=== PATIENT | male | born 1945 ===

== ENCOUNTER 2018-08-06 10:49 | Inpatient (IN) | payer MEDICARE, OTHER ==
[2018-08-06 10:52] VITALS: BMI 23.3
--- NOTE | 2018-08-06 11:56 | ED PDOC ---
HPI: Altered Mental Status Time Seen by Provider: 08/06/18 10:56 Chief Complaint (Nursing): Weakness/Neurological Deficit Chief Complaint (Provider): AMS History Per: Patient Additional Complaint(s): Patient is a 73 yo male, no PMH according to Pt's nephews at bedside, brought from his apartment building by EMS for evaluation of weakness, weight loss and not eating. Pt's nephews report Pt lives alone; however, they are in the same building and check on him often. Nephews note that Pt has had a 30 lb weight loss in the last month, does not eat the food they have been making for him, and appears to be overall weak. Pt alert at this time, states his name but will not answer questions appropriately. unsure of place or time. denies any physical complaints. Past Medical History Reviewed: Nursing Documentation, Vital Signs Vital Signs: Last Vital Signs Temp 96.1 F L 08/06/18 10:52 Pulse 80 08/06/18 10:52 Resp 17 08/06/18 10:52 BP 95/66 L 08/06/18 10:52 Pulse Ox 99 08/06/18 10:52 - Medical History PMH: No Chronic Diseases - Surgical History Surgical History: No Surg Hx - Family History Family History: States: Unknown Family Hx - Living Arrangements Living Arrangements: Alone (family live in same building) - Social History Current smoker - smoking cessation education provided: No Alcohol: > 2 Drinks/Day Drugs: Denies - Home Medications Home Medications: Ambulatory Orders Medication Instructions Recorded No Known Home Med 08/06/18 - Allergies Allergies/Adverse Reactions: Allergies Allergy/AdvReac Type Severity Reaction Status Date / Time No Known Allergies Allergy Verified 08/06/18 11:02 Review of Systems ROS Statement: Except As Marked, All Systems Reviewed And Found Negative Neurological: Positive for: Weakness Physical Exam - Reviewed Nursing Documentation Reviewed: Yes Vital Signs Reviewed: Yes - Physical Exam Appears: Positive for: Well, Non-toxic, No Acute Distress Head Exam: Positive for: ATRAUMATIC, NORMAL INSPECTION, NORMOCEPHALIC Skin: Positive for: Normal Color, Warm, DRY Eye Exam: Positive for: EOMI, Normal appearance, PERRL ENT: Positive for: Normal ENT Inspection Neck: Positive for: Normal, Painless ROM Cardiovascular/Chest: Positive for: Regular Rate, Rhythm Respiratory: Positive for: CNT, Normal Breath Sounds Gastrointestinal/Abdominal: Positive for: Normal Exam, Soft Back: Positive for: Normal Inspection Extremity: Positive for: Normal ROM Neurologic/Psych: Positive for: Alert, Oriented - Laboratory Results Result Diagrams: 08/06/18 12:07 08/06/18 12:07 - ECG O2 Sat by Pulse Oximetry: 99 Medical Decision Making Medical Decision Making: IV access established and diagnostics ordered CT scan resulted: NAD, age related changes, as per radiologist CXR: NAd, as read by ELINOR EKG interpreted and cleared by ED MD BUN elevated 64 CR 2.0 Alochol < 10 IVF administered case discussed with ED MD, Dr. Godfrey, who agreed with admission at this time. Pt does not have a PMD according to nereida. Case discussed with Dr. Kamara, arrangements made for admission Disposition - Clinical Impression Clinical Impression: Weight loss, Weakness, Renal failure - Patient ED Disposition Is Patient to be Admitted: Yes - Disposition Disposition Time: 14:40 Condition: STABLE Instructions: Weakness (ED) Forms: [employer] (Lithuanian)
[2018-08-06 12:13] LABS: BASO # 0.1 K/uL (0.0-0.2); BASO % 1.3 % (0.0-2.0); EOS # 0.1 K/uL (0.0-0.7); EOS % 2.2 % (0.0-4.0); HEMOGLOBIN 16.7 g/dL (12.0-18.0); LYMPH % 15.4 % (20.0-40.0); MEAN CELL VOLUME 89.5 fl (80.0-94.0); MEAN CORPUSCULAR HEMOGLOBIN 29.5 pg (27.0-31.0); MEAN PLATELET VOLUME 11.8 fl (7.2-11.7); MONO # 0.6 K/uL (0.0-0.8); MONO % 9.7 % (0.0-10.0); NEUT # 4.7 K/uL (1.8-7.0); NEUT % 71.4 % (50.0-75.0); NRBC % 0.2 % (0.0-0.0); RBC 5.66 Mil/uL (4.40-5.90); RED CELL DISTRIBUTION WIDTH 13.4 % (11.5-14.5); WHITE BLOOD COUNT 6.6 K/uL (4.8-10.8)
[2018-08-06 12:31] LABS: ALB/GLOB RATIO 0.8 (1.0-2.1); ALBUMIN 3.4 g/dL (3.5-5.0); ALT/SGPT 32 U/L (21-72); AST/SGOT 86 U/L (17-59); BLOOD UREA NITROGEN 64 mg/dl (9-20); CALCIUM 9.7 mg/dL (8.4-10.2); GFR NON-AFRICAN AMERICAN 33
[2018-08-06 12:39] LABS: INR 1.1; PROTHROMBIN TIME 12.4 Seconds (9.8-13.1)
--- NOTE | 2018-08-06 13:03 | RAD ---
Date of service: 08/06/2018 PROCEDURE: CHEST RADIOGRAPH, 1 VIEW HISTORY: med screening COMPARISON: 06/03/2012. FINDINGS: LUNGS: Stable/chronic interstitial lung disease. PLEURA: No pneumothorax or pleural fluid seen. CARDIOVASCULAR: No radiographic findings to suggest acute or significant cardiovascular disease. OSSEOUS STRUCTURES: No significant abnormalities. VISUALIZED UPPER ABDOMEN: Normal. OTHER FINDINGS: None. IMPRESSION: No active disease. No acute/significant interval changes.
--- NOTE | 2018-08-06 13:05 | CT ---
Date of service: 08/06/2018 PROCEDURE: CT HEAD WITHOUT CONTRAST. HISTORY: AMS COMPARISON: None available. TECHNIQUE: Axial computed tomography images were obtained through the head/brain without intravenous contrast. Radiation dose: Total exam DLP = 778.86 mGy-cm. This CT exam was performed using one or more of the following dose reduction techniques: Automated exposure control, adjustment of the mA and/or kV according to patient size, and/or use of iterative reconstruction technique. FINDINGS: HEMORRHAGE: No intracranial hemorrhage. BRAIN: No mass effect or edema. Mild to moderate diffuse atrophy. Mild chronic periventricular white matter ischemic change. No evidence of acute infarct. VENTRICLES: Unremarkable. No hydrocephalus. CALVARIUM: Unremarkable. PARANASAL SINUSES: Unremarkable as visualized. No significant inflammatory changes. MASTOID AIR CELLS: Unremarkable as visualized. No inflammatory changes. OTHER FINDINGS: None. IMPRESSION: No intracranial mass, hemorrhage or evidence of acute infarct. Age related atrophy and chronic white matter ischemic change.
[2018-08-06] MEDS ORDERED: Sodium Chloride 0.9% 1,000 ML IV STA (14:30)
--- NOTE | 2018-08-06 20:12 | CP.PCM.HP ---
History of Present Illness - History of Present Illness History of Present Illness: CC: Weakness and Weight Loss History of Present Illness: A 73 yo male, no PMH according to Pt's nephews at bedside, brought from his apartment building by EMS for evaluation of weakness, weight loss and not eating. Pt's nephews report Patient lives alone; however, they are in the same building and check on him often. Nephews note that Pt has had a 30 lb weight loss in the last month, does not eat the food they have been making for him, and appears to be overall weak. Pt alert at this time, states his name but will not answer questions appropriately. unsure of place or time. denies any physical complaints. In the ER, patient was found to have ISAURO. Present on Admission - Present on Admission Any Indicators Present on Admission: No Review of Systems - Review of Systems All systems: reviewed and no additional remarkable complaints except Review of Systems: as per HPI Past Patient History - Past Medical History & Family History Past Medical History?: Yes Past Family History: Reviewed and not pertinent - Past Social History Smoking Status: Unknown Alcohol: > 2 Drinks/Day Drugs: Denies - MUSCULOSKELETAL/RHEUMATOLOGICAL Hx Falls: No (Unknown) - PSYCHIATRIC Hx Substance Use: No Meds Allergies/Adverse Reactions: Allergies Allergy/AdvReac Type Severity Reaction Status Date / Time No Known Allergies Allergy Verified 08/06/18 11:02 Physical Exam - Constitutional Appears: No Acute Distress, Chronically Ill - Head Exam Head Exam: ATRAUMATIC, NORMAL INSPECTION, NORMOCEPHALIC - Eye Exam Eye Exam: EOMI, Normal appearance, PERRL Pupil Exam: NORMAL ACCOMODATION, PERRL - ENT Exam ENT Exam: Mucous Membranes Moist, Normal Exam - Neck Exam Neck exam: Positive for: Normal Inspection - Respiratory Exam Respiratory Exam: Clear to Auscultation Bilateral, NORMAL BREATHING PATTERN - Cardiovascular Exam Cardiovascular Exam: REGULAR RHYTHM - GI/Abdominal Exam GI & Abdominal Exam: Normal Bowel Sounds, Soft. absent: Tenderness - Extremities Exam Extremities exam: Positive for: full ROM, normal inspection - Back Exam Back exam: NORMAL INSPECTION - Neurological Exam Neurological exam: Abnormal Gait, Alert, CN II-XII Intact, Reflexes Normal Additional comments: Oriented X2 - Psychiatric Exam Psychiatric exam: Flat Affect - Skin Skin Exam: Dry, Intact, Normal Color, Warm Results - Vital Signs Recent Vital Signs: Last Vital Signs Temp 97.4 F L 08/06/18 16:45 Pulse 66 08/06/18 16:45 Resp 18 08/06/18 16:45 BP 105/68 08/06/18 16:45 Pulse Ox 100 08/06/18 16:45 - Labs Result Diagrams: 08/10/18 04:55 08/10/18 04:55 Labs: Laboratory Results - last 24 hr 08/06/18 08/06/18 08/06/18 12:07 12:07 12:07 WBC 6.6 RBC 5.66 Hgb 16.7 Hct 50.7 MCV 89.5 MCH 29.5 MCHC 33.0 RDW 13.4 Plt Count 105 L MPV 11.8 H Neut % (Auto) 71.4 Lymph % (Auto) 15.4 L [place] % (Auto) 9.7 Eos % (Auto) 2.2 Baso % (Auto) 1.3 Neut # (Auto) 4.7 Lymph # (Auto) 1.0 [place] # (Auto) 0.6 Eos # (Auto) 0.1 Baso # (Auto) 0.1 PT 12.4 INR 1.1 APTT 35.0 Sodium 138 Potassium 4.6 Chloride 104 Carbon Dioxide 22 Anion Gap 17 BUN 64 H Creatinine 2.0 H Est GFR ( Amer) 40 Est GFR (Non-Af Amer) 33 Random Glucose 117 H Calcium 9.7 Total Bilirubin 1.2 AST 86 H ALT 32 Alkaline Phosphatase 195 H Troponin I 0.0140 Total Protein 7.7 Albumin 3.4 L Globulin 4.2 H Albumin/Globulin Ratio 0.8 L Alcohol, Quantitative < 10 - Imaging and Cardiology CT scan - head Status: Report reviewed by me Additional comment: Date of service: 08/06/2018 PROCEDURE: CT HEAD WITHOUT CONTRAST. HISTORY: AMS COMPARISON: None available. TECHNIQUE: Axial computed tomography images were obtained through the head/brain without intravenous contrast. Radiation dose: Total exam DLP = 778.86 mGy-cm. This CT exam was performed using one or more of the following dose reduction techniques: Automated exposure control, adjustment of the mA and/or kV according to patient size, and/or use of iterative reconstruction technique. FINDINGS: HEMORRHAGE: No intracranial hemorrhage. BRAIN: No mass effect or edema. Mild to moderate diffuse atrophy. Mild chronic periventricular white matter ischemic change. No evidence of acute infarct. VENTRICLES: Unremarkable. No hydrocephalus. CALVARIUM: Unremarkable. PARANASAL SINUSES: Unremarkable as visualized. No significant inflammatory changes. MASTOID AIR CELLS: Unremarkable as visualized. No inflammatory changes. OTHER FINDINGS: None. IMPRESSION: No intracranial mass, hemorrhage or evidence of acute infarct. Age related atrophy and chronic white matter ischemic change. Assessment & Plan (1) ISAURO (acute kidney injury) Status: Acute Priority: High (2) Altered mental status Assessment and Plan: Metabolic Encephalopathy Status: Acute Priority: High (3) ETOH abuse Status: Acute Priority: High (4) Physical deconditioning Status: Acute Priority: High (5) Weakness Status: Acute Priority: High (6) Weight loss Status: Acute - Assessment and Plan (Free Text) Plan: IVF CPK, PSA, Vit B12 Renal U/S Thiamine/Folic Acid Repeat BMP
--- NOTE | 2018-08-06 22:08 | CARD ---
APPROVED REPORT Date of service: 08/06/2018 EKG Measurement Heart [id number] 120P0 [id number] <Conclusion> Normal sinus rhythm Nonspecific ST abnormality Abnormal ECG
[2018-08-07 02:52] LABS: CREATININE, RANDOM URINE 198.1 mg/dL
[2018-08-07 05:49] LABS: BASO # 0.1 K/uL (0.0-0.2); BASO % 1.3 % (0.0-2.0); EOS # 0.1 K/uL (0.0-0.7); EOS % 1.5 % (0.0-4.0); HEMOGLOBIN 15.9 g/dL (12.0-18.0); LYMPH # 1.1 K/uL (1.0-4.3); LYMPH % 15.9 % (20.0-40.0); MEAN CELL VOLUME 91.2 fl (80.0-94.0); MEAN CORPUSCULAR HEMOGLOBIN 29.6 pg (27.0-31.0); MEAN CORPUSCULAR HGB CONC 32.4 g/dL (33.0-37.0); MEAN PLATELET VOLUME 11.6 fl (7.2-11.7); MONO # 0.7 K/uL (0.0-0.8); MONO % 9.9 % (0.0-10.0); NEUT % 71.4 % (50.0-75.0); NRBC % 0.1 % (0.0-0.0); RBC 5.39 Mil/uL (4.40-5.90); RED CELL DISTRIBUTION WIDTH 13.3 % (11.5-14.5)
[2018-08-07 06:08] LABS: BLOOD UREA NITROGEN 62 mg/dl (9-20); CALCIUM 9.5 mg/dL (8.4-10.2); GFR NON-AFRICAN AMERICAN 42
[2018-08-07] MEDS: Sodium Chloride 0.9% 1,000 ML IV SCH ×3 (12:03→13:00)
[2018-08-07] MEDS: Pneumococcal 23-Valent Vaccine IM ONE ×2 (12:13→14:59)
--- NOTE | 2018-08-07 14:39 | CP.PCM.CON ---
History of Present Illness - History of Present Illness History of Present Illness: Podiatry was consulted for elongated toenails, however patient denies nail clipping at this time Please re-consult podiatry if needed Past Patient History - Past Social History Smoking Status: Unknown - MUSCULOSKELETAL/RHEUMATOLOGICAL Hx Falls: No (Unknown) - PSYCHIATRIC Hx Substance Use: No Meds Allergies/Adverse Reactions: Allergies Allergy/AdvReac Type Severity Reaction Status Date / Time No Known Allergies Allergy Verified 08/06/18 11:02 - Medications Medications: Current Medications Enoxaparin Sodium (Lovenox) 40 mg SC DAILY JAMIE PRN Reason: Protocol Sodium Chloride (Sodium Chloride 0.9%) 1,000 mls @ 75 mls/hr IV .[id number] JAMIE Stop: 08/08/18 11:19 Last Admin: 08/07/18 12:13 Dose: Not Given Results - Vital Signs Recent Vital Signs: Last Vital Signs Temp 97.6 F 08/07/18 12:34 Pulse 70 08/07/18 12:34 Resp 18 08/07/18 12:34 BP 102/63 08/07/18 12:34 Pulse Ox 97 08/07/18 09:00 - Labs Result Diagrams: 08/07/18 04:20 08/07/18 04:20 Labs: Laboratory Results - last 24 hr 08/07/18 08/07/18 08/07/18 02:33 04:20 04:20 WBC 7.0 RBC 5.39 Hgb 15.9 Hct 49.1 MCV 91.2 MCH 29.6 MCHC 32.4 L RDW 13.3 Plt Count 93 L MPV 11.6 Neut % (Auto) 71.4 Lymph % (Auto) 15.9 L [place] % (Auto) 9.9 Eos % (Auto) 1.5 Baso % (Auto) 1.3 Neut # (Auto) 5.0 Lymph # (Auto) 1.1 [place] # (Auto) 0.7 Eos # (Auto) 0.1 Baso # (Auto) 0.1 Sodium 140 Potassium 4.8 Chloride 108 H Carbon Dioxide 22 Anion Gap 15 BUN 62 H Creatinine 1.6 H Est GFR ( Amer) 51 Est GFR (Non-Af Amer) 42 Random Glucose 87 Calcium 9.5 Total Creatine Kinase < 20 L Ur Random Creatinine 198.1 Ur Random Sodium < 5
[2018-08-07] MEDS: Enoxaparin 40 mg Syringe SC SCH (14:58)
[2018-08-08 07:40] LABS: ALBUMIN 3.1 g/dL (3.5-5.0); CALCIUM 9.1 mg/dL (8.4-10.2)
[2018-08-08] MEDS: Sodium Chloride 0.9% 1,000 ML IV SCH ×3 (08:00→20:05)
[2018-08-08] MEDS: Enoxaparin 40 mg Syringe SC SCH (08:53)
--- NOTE | 2018-08-08 10:43 | US ---
Date of service: 08/08/2018 PROCEDURE: HISTORY: renal insufficiency COMPARISON: TECHNIQUE: FINDINGS: Bilateral mildly echogenic kidneys measuring 8.6 on the right and 9.1 cm on the left. No mass or hydronephrosis. Abdominal ascites. IMPRESSION: As above.
[2018-08-08 14:05] LABS: URINE BILIRUBIN NEGATIVE (NEGATIVE); URINE BLOOD NEGATIVE (NEGATIVE); URINE CLARITY CLEAR (Clear); URINE COLOR AMBER (YELLOW); URINE GLUCOSE (UA) NEG (Normal); URINE HYALINE CAST 0-2 /hpf (0-2); URINE LEUKOCYTE ESTERASE NEG Leu/uL (Negative); URINE PROTEIN NEGATIVE (NEGATIVE)
--- NOTE | 2018-08-08 16:57 | CP.PCM.CON ---
History of Present Illness - History of Present Illness History of Present Illness: 73 yo M w/ no known pmh was brought to ED for evaluation after family found him to be weak and with failure to thrive; nephrology consulted for renal insufficiency; Patient unable to give any history; doesn't answer questions appropriately; per medical record, patient lives alone but is checked on by family who lives in the building; has been having weight loss and decreased PO intake; patient does have history of ETOH abuse, unclear if currently drinking; per nursing staff, was very agitated yesterday but more calm today; patient is unsteady on his feet when trying to stand; didn't eat lunch today; Review of Systems - Review of Systems Systems not reviewed;Unavailable: Altered Mental Status Past Patient History - Past Medical History & Family History Pertinent Family History: unable to obtain - Past Social History Smoking Status: Unknown - MUSCULOSKELETAL/RHEUMATOLOGICAL Hx Falls: No (Unknown) - PSYCHIATRIC Hx Substance Use: No Meds Allergies/Adverse Reactions: Allergies Allergy/AdvReac Type Severity Reaction Status Date / Time No Known Allergies Allergy Verified 08/06/18 11:02 - Medications Medications: Current Medications Enoxaparin Sodium (Lovenox) 40 mg SC DAILY JAMIE PRN Reason: Protocol Last Admin: 08/08/18 08:53 Dose: Not Given Physical Exam - Constitutional Appears: Non-toxic, No Acute Distress - Eye Exam Eye Exam: absent: Scleral icterus - ENT Exam ENT Exam: Mucous Membranes Moist - Respiratory Exam Respiratory Exam: Clear to Auscultation Bilateral. absent: Respiratory Distress - Cardiovascular Exam Cardiovascular Exam: RRR, +S1, +S2. absent: Gallop - GI/Abdominal Exam GI & Abdominal Exam: Soft. absent: Distended, Tenderness - Exam Exam: absent: Bladder Distension - Extremities Exam Additional comments: no leg edema; - Neurological Exam Neurological exam: Alert - Psychiatric Exam Additional comments: not agitated; - Skin Skin Exam: Normal Color, Warm Results - Vital Signs Recent Vital Signs: Last Vital Signs Temp 97.5 F L 08/08/18 16:05 Pulse 78 08/08/18 16:05 Resp 18 08/08/18 16:05 BP 106/76 08/08/18 16:05 Pulse Ox 94 L 08/08/18 16:05 - Labs Result Diagrams: 08/07/18 04:20 08/08/18 06:00 Labs: Laboratory Results - last 24 hr 08/08/18 08/08/18 08/08/18 06:00 13:30 13:53 Sodium 143 Potassium 5.0 Chloride 112 H Carbon Dioxide 25 Anion Gap 11 BUN 54 H Creatinine 1.5 Est GFR ( Amer) 55 Est GFR (Non-Af Amer) 46 Random Glucose 93 Calcium 9.1 Albumin 3.1 L Urine Color [place] Urine Clarity Clear Urine pH 5.0 Ur Specific [place] 1.020 Urine Protein Negative Urine Glucose (UA) Neg Urine Ketones Negative Urine Blood Negative Urine Nitrate Negative Urine Bilirubin Negative Urine Urobilinogen 4.0 Ur Leukocyte Esterase Neg Urine Microscopic WBC 1 Hyaline Casts 0-2 U Random Total Protein 7 - Imaging and Cardiology US - abdomen Status: Image reviewed by me Additional comment: Renal US - relatively preserved cortices; Assessment & Plan (1) ISAURO (acute kidney injury) Assessment and Plan: Pre-renal etiology as indicated by low urine Na, in the setting of decreased PO intake; renal function improved with volume repletion; relatively stable volume and electrolyte status; may have some underlying non-proteinuric CKD, will see what serum creatinine settles at; -continue NS at 75 cc/hr; -avoid nephrotoxic agents; Status: Acute (2) Altered mental status Assessment and Plan: Likely progressive rather than acute; will check thiamine level; Status: Acute
--- NOTE | 2018-08-08 17:05 | CP.PCM.PN ---
Subjective - Date & Time of Evaluation Date of Evaluation: 08/07/18 Time of Evaluation: 18:15 - Subjective Subjective: Seen and examined at the bed side. No new complaint. Nephrology input appreciated. Mental Status has been the same despite correction of ISAURO and Hydration. Objective - Vital Signs/Intake and Output Vital Signs (last 24 hours): Temp Pulse Resp BP Pulse Ox 97.5 F L 78 18 106/76 94 L 08/08/18 16:05 08/08/18 16:05 08/08/18 16:05 08/08/18 16:05 08/08/18 16:05 - Medications Medications: Current Medications Enoxaparin Sodium (Lovenox) 40 mg SC DAILY JAMIE PRN Reason: Protocol Last Admin: 08/08/18 08:53 Dose: Not Given - Labs Labs: 08/07/18 04:20 08/08/18 06:00 PT 12.4 Seconds (9.8-13.1) 08/06/18 12:07 INR 1.1 08/06/18 12:07 APTT 35.0 Seconds (25.6-37.1) 08/06/18 12:07 Assessment and Plan (1) Physical deconditioning Assessment & Plan: (2) ETOH abuse Status: Acute (3) ISAURO (acute kidney injury) Status: Acute (4) Altered mental status, Dementia, Status: Acute - Assessment and Plan (Free Text) Plan: IVF Physical and Occupational Therapy LAYLA Placement Thiamine, MVI and Folic Acid DVT Prophylaxis Status: Acute
[2018-08-09 07:25] LABS: BLOOD UREA NITROGEN 38 mg/dl (9-20); CALCIUM 8.8 mg/dL (8.4-10.2); GFR NON-AFRICAN AMERICAN > 60
[2018-08-09] MEDS: Enoxaparin 40 mg Syringe SC SCH (09:20)
[2018-08-09] MEDS: Sodium Chloride 0.9% 1,000 ML IV SCH (09:23)
--- NOTE | 2018-08-09 20:25 | CP.PCM.PN ---
Subjective - Date & Time of Evaluation Date of Evaluation: 08/08/18 Time of Evaluation: 21:50 - Subjective Subjective: Seen and examined at the bed side. No new complaint. Objective - Vital Signs/Intake and Output Vital Signs (last 24 hours): Temp Pulse Resp BP Pulse Ox 97.4 F L 67 18 95/61 L 95 08/09/18 20:14 08/09/18 20:14 08/09/18 20:14 08/09/18 20:14 08/09/18 20:14 - Medications Medications: Current Medications Enoxaparin Sodium (Lovenox) 40 mg SC DAILY JAMIE PRN Reason: Protocol Last Admin: 08/09/18 09:20 Dose: 40 mg - Labs Labs: 08/07/18 04:20 08/09/18 05:20 PT 12.4 Seconds (9.8-13.1) 08/06/18 12:07 INR 1.1 08/06/18 12:07 APTT 35.0 Seconds (25.6-37.1) 08/06/18 12:07 - Constitutional Appears: Well, No Acute Distress - Head Exam Head Exam: ATRAUMATIC, NORMAL INSPECTION, NORMOCEPHALIC - Eye Exam Eye Exam: EOMI, Normal appearance, PERRL Pupil Exam: NORMAL ACCOMODATION, PERRL - ENT Exam ENT Exam: Mucous Membranes Moist, Normal Exam - Neck Exam Neck Exam: Full ROM, Normal Inspection. absent: Lymphadenopathy - Respiratory Exam Respiratory Exam: Clear to Ausculation Bilateral, NORMAL BREATHING PATTERN - Cardiovascular Exam Cardiovascular Exam: REGULAR RHYTHM, +S1, +S2. absent: Murmur - GI/Abdominal Exam GI & Abdominal Exam: Soft, Normal Bowel Sounds. absent: Tenderness - Extremities Exam Extremities Exam: Full ROM, Normal Capillary Refill, Normal Inspection. absent : Joint Swelling, Pedal Edema - Back Exam Back Exam: NORMAL INSPECTION - Neurological Exam Neurological Exam: Alert, Awake, CN II-XII Intact, Normal Gait, Oriented x3 - Psychiatric Exam Psychiatric exam: Normal Affect, Normal Mood - Skin Skin Exam: Dry, Intact, Normal Color, Warm Assessment and Plan (1) Physical deconditioning Assessment & Plan: (2) ETOH abuse Status: Acute (3) ISAURO (acute kidney injury) Status: Acute (4) Altered mental status (6) Dementia Rule out Reversible Etiology (RPR, Vit B12, TSH) (7) ETOH Use Status: Acute - Assessment and Plan (Free Text) Plan: IVF Physical and Occupational Therapy LAYLA Placement Thiamine, MVI and Folic Acid DVT Prophylaxis Status: Acute
--- NOTE | 2018-08-09 20:26 | CP.PCM.PN ---
Subjective - Date & Time of Evaluation Date of Evaluation: 08/09/18 Time of Evaluation: 18:30 - Subjective Subjective: Seen and examined at the bed side. No new complaint. Objective - Vital Signs/Intake and Output Vital Signs (last 24 hours): Temp Pulse Resp BP Pulse Ox 97.4 F L 67 18 95/61 L 95 08/09/18 20:14 08/09/18 20:14 08/09/18 20:14 08/09/18 20:14 08/09/18 20:14 - Medications Medications: Current Medications Enoxaparin Sodium (Lovenox) 40 mg SC DAILY JAMIE PRN Reason: Protocol Last Admin: 08/09/18 09:20 Dose: 40 mg - Labs Labs: 08/07/18 04:20 08/09/18 05:20 PT 12.4 Seconds (9.8-13.1) 08/06/18 12:07 INR 1.1 08/06/18 12:07 APTT 35.0 Seconds (25.6-37.1) 08/06/18 12:07 Assessment and Plan (1) Physical deconditioning Assessment & Plan: (2) ETOH abuse Status: Acute (3) ISAURO (acute kidney injury) Status: Acute (4) Altered mental status, Dementia, Chronic ETOH Use Status: Acute - Assessment and Plan (Free Text) Plan: IVF Physical and Occupational Therapy LAYLA Placement Add Thiamine, MVI and Folic Acid DVT Prophylaxis Status: Acute
[2018-08-10] MEDS: Sodium Chloride 0.9% 1,000 ML IV SCH ×2 (01:23→15:19)
[2018-08-10 05:56] LABS: BASO # 0.1 K/uL (0.0-0.2); BASO % 1.1 % (0.0-2.0); EOS # 0.1 K/uL (0.0-0.7); EOS % 1.6 % (0.0-4.0); HEMOGLOBIN 14.9 g/dL (12.0-18.0); LYMPH % 14.3 % (20.0-40.0); MEAN CELL VOLUME 90.4 fl (80.0-94.0); MEAN CORPUSCULAR HEMOGLOBIN 29.7 pg (27.0-31.0); MEAN CORPUSCULAR HGB CONC 32.8 g/dL (33.0-37.0); MEAN PLATELET VOLUME 11.3 fl (7.2-11.7); MONO # 0.8 K/uL (0.0-0.8); NEUT # 5.1 K/uL (1.8-7.0); NRBC % 0.1 % (0.0-0.0); RED CELL DISTRIBUTION WIDTH 13.6 % (11.5-14.5); WHITE BLOOD COUNT 7.1 K/uL (4.8-10.8)
[2018-08-10 06:14] LABS: ALB/GLOB RATIO 0.7 (1.0-2.1); ALBUMIN 2.8 g/dL (3.5-5.0); ALT/SGPT 42 U/L (21-72); AST/SGOT 94 U/L (17-59); BLOOD UREA NITROGEN 30 mg/dl (9-20); GFR NON-AFRICAN AMERICAN > 60
[2018-08-10] MEDS: Enoxaparin 40 mg Syringe SC SCH (09:34)
--- NOTE | 2018-08-10 21:13 | CP.PCM.PN ---
Subjective - Date & Time of Evaluation Date of Evaluation: 08/10/18 Time of Evaluation: 15:00 - Subjective Subjective: Seen and examined at the bed side. No new complaint. Patient will be discharged to [facility]. [facility] insurance authorization. No fever or chills. Objective - Vital Signs/Intake and Output Vital Signs (last 24 hours): Temp Pulse Resp BP Pulse Ox 97.6 F 66 20 107/67 100 08/10/18 19:31 08/10/18 19:31 08/10/18 19:31 08/10/18 19:31 08/10/18 19:31 - Medications Medications: Current Medications Folic Acid (Folic Acid) 1 mg PO DAILY [facility] Last Admin: 08/10/18 15:20 Dose: 1 mg Sodium Chloride (Sodium Chloride 0.9%) 1,000 mls @ 75 mls/hr IV .[id number] [facility] Stop: 08/10/18 21:31 Last Admin: 08/10/18 15:19 Dose: 75 mls/hr Thiamine HCl (Vitamin B1 Tab) 100 mg PO DAILY [facility] Last Admin: 08/10/18 15:19 Dose: 100 mg - Labs Labs: 08/10/18 04:55 08/10/18 04:55 PT 12.4 Seconds (9.8-13.1) 08/06/18 12:07 INR 1.1 08/06/18 12:07 APTT 35.0 Seconds (25.6-37.1) 08/06/18 12:07 - Constitutional Appears: Well, No Acute Distress - Head Exam Head Exam: ATRAUMATIC, NORMAL INSPECTION, NORMOCEPHALIC - Eye Exam Eye Exam: EOMI, Normal appearance, PERRL Pupil Exam: NORMAL ACCOMODATION, PERRL - ENT Exam ENT Exam: Mucous Membranes Moist, Normal Exam - Neck Exam Neck Exam: Full ROM, Normal Inspection - Respiratory Exam Respiratory Exam: Clear to Ausculation Bilateral, NORMAL BREATHING PATTERN - Cardiovascular Exam Cardiovascular Exam: REGULAR RHYTHM, +S1, +S2 - GI/Abdominal Exam GI & Abdominal Exam: Firm, Soft, Normal Bowel Sounds - Extremities Exam Extremities Exam: Full ROM, Normal Capillary Refill, Normal Inspection - Back Exam Back Exam: Full ROM, NORMAL INSPECTION - Neurological Exam Neurological Exam: Alert, Awake, Oriented x3 - Psychiatric Exam Psychiatric exam: Normal Affect, Normal Mood - Skin Skin Exam: Dry, Intact, Normal Color Assessment and Plan (1) Physical deconditioning Status: Acute (2) ETOH abuse Status: Acute (3) ISAURO (acute kidney injury) Status: Acute (4) Altered mental status Status: Acute - Assessment and Plan (Free Text) Plan: IVF Physical and Occupational Therapy LAYAL Placement Add Thiamine, MVI and Folic Acid DVT Prophylaxis
--- NOTE | 2018-08-10 23:34 | CP.PCM.PN ---
Objective - Vital Signs/Intake and Output Vital Signs (last 24 hours): Temp Pulse Resp BP Pulse Ox 97.6 F 66 20 107/67 100 08/10/18 19:31 08/10/18 19:31 08/10/18 19:31 08/10/18 19:31 08/10/18 19:31 - Medications Medications: Current Medications Folic Acid (Folic Acid) 1 mg PO DAILY [facility] Last Admin: 08/10/18 15:20 Dose: 1 mg Thiamine HCl (Vitamin B1 Tab) 100 mg PO DAILY [facility] Last Admin: 08/10/18 15:19 Dose: 100 mg - Labs Labs: 08/10/18 04:55 08/10/18 04:55 PT 12.4 Seconds (9.8-13.1) 08/06/18 12:07 INR 1.1 08/06/18 12:07 APTT 35.0 Seconds (25.6-37.1) 08/06/18 12:07 Assessment and Plan (1) ISAURO (acute kidney injury) Status: Acute (2) Altered mental status Status: Acute
[2018-08-10] MEDS ORDERED: Sodium Chloride 0.45% 1,000 ML IV SCH (23:45)
--- NOTE | 2018-08-11 16:14 | CP.PCM.PN ---
Subjective - Date & Time of Evaluation Date of Evaluation: 08/11/18 Time of Evaluation: 16:05 - Subjective Subjective: Seen and examined at the bed side. No new complain. No change in mental Status. Objective - Vital Signs/Intake and Output Vital Signs (last 24 hours): Temp Pulse Resp BP Pulse Ox 97.5 F L 77 20 104/68 96 08/11/18 16:07 08/11/18 16:07 08/11/18 16:07 08/11/18 16:07 08/11/18 16:07 - Medications Medications: Current Medications Folic Acid (Folic Acid) 1 mg PO DAILY [facility] Last Admin: 08/11/18 08:33 Dose: 1 mg Thiamine HCl (Vitamin B1 Tab) 100 mg PO DAILY [facility] Last Admin: 08/11/18 08:32 Dose: 100 mg - Labs Labs: 08/10/18 04:55 08/10/18 04:55 PT 12.4 Seconds (9.8-13.1) 08/06/18 12:07 INR 1.1 08/06/18 12:07 APTT 35.0 Seconds (25.6-37.1) 08/06/18 12:07 Assessment and Plan (1) Physical deconditioning Assessment & Plan: (2) ETOH abuse Status: Acute (3) ISAURO (acute kidney injury) Status: Acute (4) Altered mental status Status: Acute - Assessment and Plan (Free Text) Plan: IVF Physical and Occupational Therapy LAYLA Placement Thiamine, MVI and Folic Acid DVT Prophylaxis D/w the SW about Determining the Next of Kin. Margaret, who claimed to be the only next of Kin around and asking a letter to take care of patient's Finance. SW trying to find out anybody who has POA or Close biological next of Kin. Status: Acute
--- NOTE | 2018-08-11 19:41 | CP.PCM.PN ---
Subjective - Date & Time of Evaluation Date of Evaluation: 08/11/18 Time of Evaluation: 13:30 - Subjective Subjective: Discussed with patient's family; was very functional just a few days prior to admission despite being an alcoholic; would ride his bike and be able carry a conversation; not eating that much here; now confusion worsening at times per fa anup; Objective - Vital Signs/Intake and Output Vital Signs (last 24 hours): Temp Pulse Resp BP Pulse Ox 97.4 F L 77 20 120/79 96 08/11/18 19:00 08/11/18 19:00 08/11/18 19:00 08/11/18 19:00 08/11/18 19:00 - Medications Medications: Current Medications Folic Acid (Folic Acid) 1 mg PO DAILY [facility] Last Admin: 08/11/18 08:33 Dose: 1 mg Thiamine HCl 250 mg/ Sodium (Chloride) 1,002.5 mls @ 100 mls/hr IV .Q10H2M [facility] Stop: 08/12/18 19:34 Lactulose (Enulose) 20 gm PO BID [facility] Thiamine HCl (Vitamin B1 Tab) 100 mg PO DAILY [facility] Last Admin: 08/11/18 08:32 Dose: 100 mg - Labs Labs: 08/10/18 04:55 08/10/18 04:55 PT 12.4 Seconds (9.8-13.1) 08/06/18 12:07 INR 1.1 08/06/18 12:07 APTT 35.0 Seconds (25.6-37.1) 08/06/18 12:07 - Constitutional Appears: Non-toxic, No Acute Distress - Eye Exam Eye Exam: Normal appearance - Respiratory Exam Respiratory Exam: Clear to Ausculation Bilateral. absent: Respiratory Distress - Cardiovascular Exam Cardiovascular Exam: RRR, +S1, +S2 - GI/Abdominal Exam GI & Abdominal Exam: Soft. absent: Distended, Tenderness - Extremities Exam Additional comments: no leg edema; - Neurological Exam Neurological Exam: Alert, Awake - Psychiatric Exam Psychiatric exam: absent: Agitated Additional comments: confused - Skin Skin Exam: Warm. absent: Cyanosis Assessment and Plan (1) ISAURO (acute kidney injury) Assessment & Plan: Pre-renal etiology, mostly resolved though BUN still elevated; will continue with IVF for now and check labs tomorrow; Status: Acute (2) Altered mental status Assessment & Plan: Etiology unclear; family gives history of marked change in mental status; elevated ammonia level; wernicke's encephalopathy a possiblity; on PO thiamine, will give IV as well as start lactulose; need to monitor for hypernatremia (currently mild), changing IVF to 1/2NS at 100 cc/hr; Status: Acute
[2018-08-11] MEDS ORDERED: Sodium Chloride 0.45% 1,000 ML IV SCH (19:45)
[2018-08-11] MEDS: THIAMINE IV SCH (20:00)
[2018-08-11] MEDS: SODIUM CHLORIDE 0.45% IV SCH (20:00)
[2018-08-12 05:50] LABS: BASO # 0.1 K/uL (0.0-0.2); BASO % 1.1 % (0.0-2.0); EOS # 0.1 K/uL (0.0-0.7); EOS % 1.2 % (0.0-4.0); HEMOGLOBIN 14.9 g/dL (12.0-18.0); LYMPH # 0.9 K/uL (1.0-4.3); LYMPH % 11.5 % (20.0-40.0); MEAN CELL VOLUME 90.6 fl (80.0-94.0); MEAN CORPUSCULAR HEMOGLOBIN 29.9 pg (27.0-31.0); MEAN CORPUSCULAR HGB CONC 32.9 g/dL (33.0-37.0); MONO # 0.7 K/uL (0.0-0.8); MONO % 9.7 % (0.0-10.0); NEUT # 5.7 K/uL (1.8-7.0); NEUT % 76.5 % (50.0-75.0); NRBC % 0.1 % (0.0-0.0); RBC 5.01 Mil/uL (4.40-5.90); WHITE BLOOD COUNT 7.5 K/uL (4.8-10.8)
[2018-08-12 06:16] LABS: ALB/GLOB RATIO 0.7 (1.0-2.1); ALBUMIN 2.8 g/dL (3.5-5.0); ALT/SGPT 46 U/L (21-72); AST/SGOT 96 U/L (17-59); BLOOD UREA NITROGEN 27 mg/dl (9-20); CALCIUM 9.1 mg/dL (8.4-10.2); GFR NON-AFRICAN AMERICAN > 60
[2018-08-12] MEDS: THIAMINE IV SCH (06:24)
[2018-08-12] MEDS: SODIUM CHLORIDE 0.45% IV SCH (06:24)
[2018-08-12] MEDS ORDERED: Enoxaparin 40 mg Syringe SC SCH (09:00)
[2018-08-12] MEDS ORDERED: THIAMINE IV SCH (14:15)
[2018-08-12] MEDS ORDERED: SODIUM CHLORIDE 0.45% IV SCH (14:15)
[2018-08-12 23:58] VITALS: RESP 18
[2018-08-13 12:11] VITALS: BP 102/71; PULSE 75; TEMP 97.5; O2SAT 97
--- NOTE | 2018-08-14 07:47 | CP.PCM.PN ---
Subjective - Date & Time of Evaluation Date of Evaluation: 08/12/18 Time of Evaluation: 20:50 - Subjective Subjective: Seen and examined at the bed side. No new complaint. Objective - Vital Signs/Intake and Output Vital Signs (last 24 hours): Temp Pulse Resp BP Pulse Ox 97.5 F L 75 18 102/71 97 08/13/18 12:11 08/13/18 12:11 08/13/18 12:11 08/13/18 12:11 08/13/18 12:11 - Labs Labs: 08/12/18 04:20 08/12/18 04:20 PT 12.4 Seconds (9.8-13.1) 08/06/18 12:07 INR 1.1 08/06/18 12:07 APTT 35.0 Seconds (25.6-37.1) 08/06/18 12:07 Assessment and Plan (1) Physical deconditioning Status: Acute (2) ISAURO (acute kidney injury) Status: Acute (3) Altered mental status Status: Acute (4) ETOH abuse Status: Acute (5) Weakness Status: Acute (6) Weight loss Status: Acute - Assessment and Plan (Free Text) Plan: Continue current care
--- NOTE | 2018-08-14 07:50 | CP.PCM.DIS ---
Provider - Provider Date of Admission: 08/06/18 14:32 Attending physician: Parker Kamara MD Time Spent in preparation of Discharge (in minutes): 25 Diagnosis - Discharge Diagnosis (1) Physical deconditioning Status: Acute Priority: High (2) ISAURO (acute kidney injury) Status: Acute Priority: High (3) Altered mental status Status: Acute Priority: High (4) ETOH abuse Status: Acute Priority: High (5) Weakness Status: Acute Priority: High (6) Weight loss Status: Acute Hospital Course - Lab Results Lab Results: Most Recent Lab Values WBC 7.5 K/uL (4.8-10.8) 08/12/18 04:20 RBC 5.01 Mil/uL (4.40-5.90) 08/12/18 04:20 Hgb 14.9 g/dL (12.0-18.0) 08/12/18 04:20 Hct 45.4 % (35.0-51.0) 08/12/18 04:20 MCV 90.6 fl (80.0-94.0) 08/12/18 04:20 MCH 29.9 pg (27.0-31.0) 08/12/18 04:20 MCHC 32.9 g/dL (33.0-37.0) L 08/12/18 04:20 RDW 14.0 % (11.5-14.5) 08/12/18 04:20 Plt Count 95 K/uL (130-400) L 08/12/18 04:20 MPV 11.0 fl (7.2-11.7) 08/12/18 04:20 Neut % (Auto) 76.5 % (50.0-75.0) H 08/12/18 04:20 Lymph % (Auto) 11.5 % (20.0-40.0) L 08/12/18 04:20 [place] % (Auto) 9.7 % (0.0-10.0) 08/12/18 04:20 Eos % (Auto) 1.2 % (0.0-4.0) 08/12/18 04:20 Baso % (Auto) 1.1 % (0.0-2.0) 08/12/18 04:20 Neut # (Auto) 5.7 K/uL (1.8-7.0) 08/12/18 04:20 Lymph # (Auto) 0.9 K/uL (1.0-4.3) L 08/12/18 04:20 [place] # (Auto) 0.7 K/uL (0.0-0.8) 08/12/18 04:20 Eos # (Auto) 0.1 K/uL (0.0-0.7) 08/12/18 04:20 Baso # (Auto) 0.1 K/uL (0.0-0.2) 08/12/18 04:20 PT 12.4 Seconds (9.8-13.1) 08/06/18 12:07 INR 1.1 08/06/18 12:07 APTT 35.0 Seconds (25.6-37.1) 08/06/18 12:07 Sodium 147 mmol/l (132-148) 08/12/18 04:20 Potassium 4.4 MMOL/L (3.6-5.0) 08/12/18 04:20 Chloride 118 mmol/L (98-107) H 08/12/18 04:20 Carbon Dioxide 21 mmol/L (22-30) L 08/12/18 04:20 Anion Gap 12 (10-20) 08/12/18 04:20 BUN 27 mg/dl (9-20) H 08/12/18 04:20 Creatinine 1.0 mg/dl (0.8-1.5) 08/12/18 04:20 Est GFR ( Amer) > 60 08/12/18 04:20 Est GFR (Non-Af Amer) > 60 08/12/18 04:20 Random Glucose 99 mg/dL (75-110) 08/12/18 04:20 Calcium 9.1 mg/dL (8.4-10.2) 08/12/18 04:20 Phosphorus 3.6 mg/dl (2.5-4.5) 08/12/18 04:20 Magnesium 1.9 MG/DL (1.6-2.3) 08/12/18 04:20 Total Bilirubin 1.0 mg/dl (0.2-1.3) 08/12/18 04:20 AST 96 U/L (17-59) H 08/12/18 04:20 ALT 46 U/L (21-72) 08/12/18 04:20 Alkaline Phosphatase 220 U/L (38-126) H 08/12/18 04:20 Ammonia 31 umo/L (16-60) D 08/12/18 04:20 Total Creatine Kinase < 20 U/L (55-170) L 08/07/18 04:20 Troponin I 0.0140 ng/mL (0.00-0.120) 08/06/18 12:07 Total Protein 6.6 G/DL (6.3-8.2) 08/12/18 04:20 Albumin 2.8 g/dL (3.5-5.0) L 08/12/18 04:20 Globulin 3.8 gm/dL (2.2-3.9) 08/12/18 04:20 Albumin/Globulin Ratio 0.7 (1.0-2.1) L 08/12/18 04:20 Free T4 1.29 ng/dL (0.78-2.19) 08/10/18 04:55 TSH 3rd Generation 4.87 mIU/ML (0.46-4.68) H 08/10/18 04:55 PTH Intact Whole Molec 63 pg/mL (14-64) 08/07/18 06:00 Cortisol AM Sample 16.4 ug/dL (4.46-22.7) 08/10/18 04:55 Urine Color Vilma (YELLOW) 08/08/18 13:53 Urine Clarity Clear (Clear) 08/08/18 13:53 Urine pH 5.0 (5.0-8.0) 08/08/18 13:53 Ur Specific [place] 1.020 (1.003-1.030) 08/08/18 13:53 Urine Protein Negative mg/dL (NEGATIVE) 08/08/18 13:53 Urine Glucose (UA) Neg mg/dL (Normal) 08/08/18 13:53 Urine Ketones Negative mg/dL (NEGATIVE) 08/08/18 13:53 Urine Blood Negative (NEGATIVE) 08/08/18 13:53 Urine Nitrate Negative (NEGATIVE) 08/08/18 13:53 Urine Bilirubin Negative (NEGATIVE) 08/08/18 13:53 Urine Urobilinogen 4.0 mg/dL (0.2-1.0) 08/08/18 13:53 Ur Leukocyte Esterase Neg Trisha/uL (Negative) 08/08/18 13:53 Urine Microscopic WBC 1 /hpf (0-5) 08/08/18 13:53 Hyaline Casts 0-2 /hpf (0-2) 08/08/18 13:53 Ur Random Creatinine 198.1 mg/dL 08/07/18 02:33 U Random Total Protein 7 mg/L 08/08/18 13:30 Ur Random Sodium < 5 mmol/L 08/07/18 02:33 Urine Creatinine 171 mg/dL (20-370) 08/08/18 18:10 Urine Microalbumin 0.4 mg/dL 08/08/18 18:10 Microalb/Creat Ratio 2 (<30) 08/08/18 18:10 Alcohol, Quantitative < 10 mg/dl (0-10) 08/06/18 12:07 Discharge Exam - Head Exam Head Exam: ATRAUMATIC, NORMAL INSPECTION, NORMOCEPHALIC Discharge Plan - Discharge Medications Prescriptions: Thiamine [Vitamin B1 Tab] 100 mg PO DAILY #30 tab - Follow Up Plan Condition: STABLE Disposition: HOME/ ROUTINE Instructions: Weakness (ED), Altered Mental Status (GEN), Acute Kidney Failure, Delirium (Confusion) (DC), Effects of Alcohol on Your Health
== END 2018-08-13 14:22 | DRG 682 ==
LOC: H.ER 10:49 → H.ERHOLD 14:32 → H.TEL 16:23
PROVIDERS: ADMIT Internal Medicine; ATTEND Internal Medicine
PROC: F07Z9FZ Gait Training/Functional Ambulation Treatment using Assistive, Adaptive, Supportive or Protective Equipment (ICD-10-PCS; principal; 2018-08-07)
PROC: 3E0234Z Introduction of Serum, Toxoid and Vaccine into Muscle, Percutaneous Approach (ICD-10-PCS; 2018-08-07)
DX: N17.9 Acute kidney failure, unspecified (principal); G93.41 Metabolic encephalopathy; F10.10 Alcohol abuse, uncomplicated; R62.7 Adult failure to thrive; Z23 Encounter for immunization

== ENCOUNTER 2018-08-16 17:08 | Inpatient (IN) | payer MEDICARE, MEDICAID ==
[2018-08-16 17:08] VITALS: BMI 23.3
--- NOTE | 2018-08-16 18:07 | ED PDOC ---
History of Present Illness History of Present Illness: A 73 [facility] and decreased PO intake. Pt alert at this time, will not speak. PMD: Dr. Kamara HPI: Influenza Time Seen by Provider: 08/16/18 17:18 Chief Complaint: Abnormal Labs Past Medical History Reviewed: Historical Data, Nursing Documentation, Vital Signs Vital Signs: Last Vital Signs Temp 96.8 F L 08/16/18 17:11 Pulse 82 08/16/18 17:11 Resp 20 08/16/18 17:11 BP 100/63 08/16/18 17:11 Pulse Ox 100 08/16/18 17:11 - Family History Family History: States: Unknown Family Hx - Living Arrangements Living Arrangements: Half-Way/Assist Lvng - Social History Current smoker - smoking cessation education provided: No Alcohol: None Drugs: Denies - Home Medications Home Medications: Ambulatory Orders Medication Instructions Recorded Folic Acid 1 mg PO DAILY tab 08/13/18 Thiamine [Vitamin B1 Tab] 100 mg PO DAILY #30 tab 08/13/18 Acetaminophen [Tylenol 325mg tab] 2 tab PO Q4 PRN 08/16/18 Albuterol/Ipratropium [Duoneb 3 3 ml INH Q6 PRN 08/16/18 mg/0.5 mg (3 ml) UD] Enoxaparin [Lovenox] 40 mg SQ DAILY 08/16/18 Furosemide [Lasix] 40 mg PO DAILY 08/16/18 Lactulose [Enulose] 30 ml PO DAILY PRN 08/16/18 levoFLOXacin 500 mg in D5W 500 mg PO DAILY 08/16/18 [Levaquin 500MG] - Allergies Allergies/Adverse Reactions: Allergies Allergy/AdvReac Type Severity Reaction Status Date / Time No Known Allergies Allergy Verified 08/06/18 11:02 Review of Systems ROS Statement: Except As Marked, All Systems Reviewed And Found Negative Neurological: Positive for: Weakness Physical Exam - Reviewed Nursing Documentation Reviewed: Yes Vital Signs Reviewed: Yes - Physical Exam Appears: Positive for: Well, Non-toxic, No Acute Distress Head Exam: Positive for: ATRAUMATIC, NORMAL INSPECTION, NORMOCEPHALIC Skin: Positive for: Normal Color, Warm, DRY Eye Exam: Positive for: EOMI, Normal appearance, PERRL ENT: Positive for: Normal ENT Inspection Neck: Positive for: Normal, Painless ROM Cardiovascular/Chest: Positive for: Regular Rate, Rhythm Respiratory: Positive for: Decreased Breath Sounds, Crackles Gastrointestinal/Abdominal: Positive for: Normal Exam, Soft Back: Positive for: Normal Inspection Extremity: Positive for: Normal ROM Neurologic/Psych: Positive for: Alert, Oriented Medical Decision Making Medical Decision Making: IV access established and treatment initiated with IVF after BUN and CR noted to be 69 and 2.0 CXR: (+) RML and RLL infiltrate noted, as read by PA-C WBC 8.3 Vitals WNL Troponin WNL IV Rocephin and Zithro started after case d/w Dr. Kamara. Arrangements made for admission - Laboratory Results Result Diagrams: 08/16/18 18:57 08/16/18 18:57 - ECG O2 Sat by Pulse Oximetry: 100 Disposition - Clinical Impression Clinical Impression: Acute renal failure, Pneumonia - Patient ED Disposition Is Patient to be Admitted: Yes - Disposition Referrals: Parker Kamara MD [Primary Care Provider] - Disposition Time: 20:01 Condition: STABLE Forms: [employer] (Romansh) - Pt Status Changed To: Hospital Disposition Of: Inpatient - Admit Certification Admit to Inpatient:: After my assessment, the patient will require hospitalization for at least two midnights. This is because of the severity of symptoms shown, intensity of services needed, and/or the medical risk in this patient being treated as an outpatient.
[2018-08-16 19:04] LABS: BASO # 0.1 K/uL (0.0-0.2); BASO % 1.4 % (0.0-2.0); EOS # 0.1 K/uL (0.0-0.7); EOS % 1.5 % (0.0-4.0); HEMOGLOBIN 16.4 g/dL (12.0-18.0); LYMPH # 1.3 K/uL (1.0-4.3); LYMPH % 15.9 % (20.0-40.0); MEAN CORPUSCULAR HEMOGLOBIN 29.2 pg (27.0-31.0); MEAN CORPUSCULAR HGB CONC 32.5 g/dL (33.0-37.0); MONO % 11.5 % (0.0-10.0); NEUT # 5.8 K/uL (1.8-7.0); NEUT % 69.7 % (50.0-75.0); NRBC % 0.1 % (0.0-0.0); RBC 5.63 Mil/uL (4.40-5.90); RED CELL DISTRIBUTION WIDTH 15.2 % (11.5-14.5); WHITE BLOOD COUNT 8.3 K/uL (4.8-10.8)
[2018-08-16 19:09] LABS: INR 1.1; PROTHROMBIN TIME 12.7 Seconds (9.8-13.1)
[2018-08-16 19:11] LABS: PARTIAL THROMBOPLASTIN TIME 34.6 Seconds (25.6-37.1)
[2018-08-16 19:20] LABS: ALB/GLOB RATIO 0.6 (1.0-2.1); ALBUMIN 2.9 g/dL (3.5-5.0); CALCIUM 9.1 mg/dL (8.4-10.2)
[2018-08-16 19:25] LABS: TROPONIN I 0.04 ng/mL (0.00-0.120)
[2018-08-16] MEDS ORDERED: Sodium Chloride 0.9% 1,000 ML IV STA (19:31)
[2018-08-16] MEDS ORDERED: Azithromycin 500 MG in Sodium Chloride 0.9% 250 ML IVPB STA (19:57)
[2018-08-16] MEDS ORDERED: cefTRIAXone (Rocephin) 1 gm Inj ONE (20:02)
[2018-08-16] MEDS ORDERED: Sodium Chloride 3% for Inhalation 4 ML VIAL.NEB IH PRN (20:40)
[2018-08-16] MEDS ORDERED: Dextrose 5%/0.45% NS 1,000 ML IV SCH (20:45)
[2018-08-16 21:03] LABS: VENOUS BLOOD GAS BASE EXCESS -10.2 mmol/L (0.0-2.0); VENOUS BLOOD GAS PCO2 29 mmHg (40-60); VENOUS BLOOD GAS PO2 46 mm/Hg (30-55); VENOUS BLOOD PH 7.31 (7.32-7.43)
[2018-08-16] MEDS ORDERED: Azithromycin 500 MG IV IVPB ONE (21:20)
[2018-08-16 21:24] LABS: SQUAMOUS EPITHIAL 5 /hpf (0-5); URINE BACTERIA OCC (<OCC); URINE BILIRUBIN NEGATIVE (NEGATIVE); URINE BLOOD LARGE (NEGATIVE); URINE CLARITY CLOUDY (Clear); URINE COLOR AMBER (YELLOW); URINE GLUCOSE (UA) NEG (Normal); URINE LEUKOCYTE ESTERASE SMALL Leu/uL (Negative); URINE PROTEIN NEGATIVE (NEGATIVE)
[2018-08-16] MEDS ORDERED: Albuterol-Ipratrop 3 mg / 0.5 (3 ml) UD INH STA (22:52)
[2018-08-16] MEDS ORDERED: Albuterol-Ipratrop 3 mg / 0.5 (3 ml) UD ONE (23:12)
--- NOTE | 2018-08-16 23:13 | CP.PCM.CON ---
History of Present Illness - History of Present Illness History of Present Illness: PMD: Dr Kamara Reason for Consult: Critical Care Management Chief Complaint: Hypotension The patient was seen and examined in the ED with no family present HPI: The Hx was obtained from the ED staff and after review of the medical re cords. He is a 73 years old male sent to the ED from [facility] because of abnormal Laboratory results showing elevated creatinine and BUN and him being weak with poor intake. This patient was [facility] 08[facility]18 and discharged on 08/13/18 with dx of ISAURO, AMS and ETOH abuse. His BUN and Creatinine on discharge was 27 and 1.0 with a Hemoglobin of 14.9: In the Ed today the patient is arousable to being alert and attempts to answer questionswith minimal grunting sounds. His blood pressure initially was 100/63mmHg falling to a Systolic of 40s then 88/62mmHg PMH: ISAURO; AMS PSH: Unknown Surgical hx because of patient's poor communication SH: Alcohol abuse; No illegal drug use; No smoking ; reside at [facility] FH: Unknown Family Hx Allergies: NKDA Medication: Reviewed Review of Systems - Review of Systems Systems not reviewed;Unavailable: Altered Mental Status Review of Systems: Review of systems limited because the patient is only making minimal grunting efforts to speak. Past Patient History - Infectious Disease Hx of Infectious Diseases: None - Past Medical History & Family History Past Medical History?: Yes - Past Social History Smoking Status: Unknown If Ever Smoked Chewing Tobacco Use: No Cigar Use: No Alcohol: None Drugs: Denies Home Situation {Lives}: Senior Care - CARDIAC Hx Cardiac Disorders: No - PULMONARY Hx Respiratory Disorders: No - NEUROLOGICAL Hx Neurological Disorder: Yes Other/Comment: Altered Mental status - HEENT Hx HEENT Problems: No - RENAL Hx Renal Failure: Yes Other/Comment: Acute Kidney injury - HEMATOLOGICAL/ONCOLOGICAL Hx Blood Disorders: No - INTEGUMENTARY Hx Dermatological Problems: No - MUSCULOSKELETAL/RHEUMATOLOGICAL Hx Musculoskeletal Disorders: No Hx Falls: No (Unknown) - GASTROINTESTINAL Hx Gastrointestinal Disorders: No - GENITOURINARY/GYNECOLOGICAL Hx Genitourinary Disorders: No - PSYCHIATRIC Hx Psychophysiologic Disorder: No Hx Substance Use: No - SURGICAL HISTORY Hx Surgeries: No (Unknown) - ANESTHESIA Hx Anesthesia: No (Unknown) Meds Allergies/Adverse Reactions: Allergies Allergy/AdvReac Type Severity Reaction Status Date / Time No Known Allergies Allergy Verified 08/06/18 11:02 - Medications Medications: Current Medications Heparin Sodium (Porcine) (Heparin) 5,000 units SC Q8 JAMIE; Protocol Sodium Chloride (Sodium Chloride 0.9%) 1,000 mls @ 125 mls/hr IV .Q8H STA Stop: 08/17/18 03:30 Last Admin: 08/16/18 19:51 Dose: 125 mls/hr Dextrose/Sodium Chloride (Dextrose 5%/0.45% Ns 1000 Ml) 1,000 mls @ 100 mls/hr IV .Q10H JAMIE Stop: 08/17/18 20:40 Folic Acid 1 mg/ Sodium (Chloride) 100.2 mls @ 60 mls/hr IVPB DAILY JAMIE Ceftriaxone Sodium 1 gm/ (Sodium Chloride) 100 mls @ 100 mls/hr IVPB DAILY JAMIE; Protocol Azithromycin 500 mg/ Sodium (Chloride) 250 mls @ 250 mls/hr IVPB DAILY JAMIE; Protocol Thiamine HCl (Vitamin B1 Inj) 100 mg IV DAILY JAMIE Physical Exam - Constitutional Appears: No Acute Distress, Confused - Head Exam Head Exam: ATRAUMATIC, NORMAL INSPECTION, NORMOCEPHALIC - Eye Exam Eye Exam: EOMI, Normal appearance Pupil Exam: NORMAL ACCOMODATION, PERRL - ENT Exam ENT Exam: Mucous Membranes Dry, Normal Exam, Normal External Ear Exam - Neck Exam Neck exam: Positive for: Full Rom. Negative for: Lymphadenopathy, Tenderness - Respiratory Exam Additional comments: Diffuse expiratory wheezes with Rhonchi and transmitted breath sounds - Cardiovascular Exam Cardiovascular Exam: REGULAR RHYTHM, RRR, +S1, +S2. absent: Gallop, JVD - GI/Abdominal Exam Additional comments: Abdomen flat, firm with guarding but no rebound tenderness, decreased bowel sounds, non tender on palpation. - Rectal Exam Rectal Exam: Deferred - Extremities Exam Additional comments: Trace swelling at the right ankle with multiple linear scratch lines at dorsal left foot. - Back Exam Back exam: NORMAL INSPECTION. absent: CVA tenderness (L), CVA tenderness (R) - Neurological Exam Neurological exam: Reflexes Normal Additional comments: leepy but easily arousable, no facial droop, no speech, moves both upper extremities. Good motor tone. not following commands to squeeze the hand. Not following commands. - Psychiatric Exam Psychiatric exam: Flat Affect - Skin Skin Exam: Dry, Intact, Normal Color Additional comments: Cold skin to touch Results - Vital Signs Recent Vital Signs: Last Vital Signs Temp 96.8 F L 08/16/18 17:11 Pulse 78 08/16/18 22:51 Resp 19 08/16/18 22:51 BP 88/62 L 08/16/18 22:51 Pulse Ox 97 08/16/18 22:51 - Labs Result Diagrams: 08/16/18 18:57 08/16/18 18:57 Labs: Laboratory Results - last 24 hr 08/16/18 08/16/18 08/16/18 18:57 18:57 18:57 WBC 8.3 RBC 5.63 Hgb 16.4 Hct 50.7 MCV 90.0 MCH 29.2 MCHC 32.5 L RDW 15.2 H Plt Count 118 L D MPV 11.0 Neut % (Auto) 69.7 Lymph % (Auto) 15.9 L [place] % (Auto) 11.5 H Eos % (Auto) 1.5 Baso % (Auto) 1.4 Neut # (Auto) 5.8 Lymph # (Auto) 1.3 [place] # (Auto) 1.0 H Eos # (Auto) 0.1 Baso # (Auto) 0.1 PT INR APTT pO2 VBG pH VBG pCO2 VBG HCO3 VBG Total CO2 VBG O2 Sat (Calc) VBG Base Excess VBG Potassium Glucose Lactate FiO2 Crit Value Called To Crit Value Called By Crit Value Read Back Blood Gas Notified Time Sodium 149 H Potassium 5.0 Chloride 123 H Carbon Dioxide 13 L Anion Gap 18 BUN 69 H Creatinine 2.0 H Est GFR ( Amer) 40 Est GFR (Non-Af Amer) 33 Random Glucose 76 Calcium 9.1 Total Bilirubin 1.6 H AST 99 H ALT 47 Alkaline Phosphatase 244 H Ammonia 77 H D Troponin I 0.0400 NT-Pro-B Natriuret Pep Total Protein 7.3 Albumin 2.9 L Globulin 4.5 H Albumin/Globulin Ratio 0.6 L Venous Blood Potassium Urine Color Urine Clarity Urine pH Ur Specific [place] Urine Protein Urine Glucose (UA) Urine Ketones Urine Blood Urine Nitrate Urine Bilirubin Urine Urobilinogen Ur Leukocyte Esterase Urine RBC (Auto) Urine Microscopic WBC Ur Squamous Epith Cells Urine Bacteria Hyaline Casts 08/16/18 08/16/18 08/16/18 18:57 19:59 20:54 WBC RBC Hgb Hct MCV MCH MCHC RDW Plt Count MPV Neut % (Auto) Lymph % (Auto) [place] % (Auto) Eos % (Auto) Baso % (Auto) Neut # (Auto) Lymph # (Auto) [place] # (Auto) Eos # (Auto) Baso # (Auto) PT 12.7 INR 1.1 APTT 34.6 pO2 46 VBG pH 7.31 L VBG pCO2 29 L VBG HCO3 16.4 VBG Total CO2 15.5 L VBG O2 Sat (Calc) 85.8 H VBG Base Excess -10.2 L VBG Potassium 5.1 Glucose 57 L Lactate 2.2 H FiO2 21.0 Crit Value Called To jorgito Levine Crit Value Called By Scarlett spaulding Crit Value Read Back Y Blood Gas Notified Time 2102 Sodium 154.0 H Potassium Chloride 109.0 H Carbon Dioxide Anion Gap BUN Creatinine Est GFR ( Amer) Est GFR (Non-Af Amer) Random Glucose Calcium Total Bilirubin AST ALT Alkaline Phosphatase Ammonia Troponin I NT-Pro-B Natriuret Pep 1320 H Total Protein Albumin Globulin Albumin/Globulin Ratio Venous Blood Potassium 5.1 Urine Color Urine Clarity Urine pH Ur Specific [place] Urine Protein Urine Glucose (UA) Urine Ketones Urine Blood Urine Nitrate Urine Bilirubin Urine Urobilinogen Ur Leukocyte Esterase Urine RBC (Auto) Urine Microscopic WBC Ur Squamous Epith Cells Urine Bacteria Hyaline Casts 08/16/18 21:14 WBC RBC Hgb Hct MCV MCH MCHC RDW Plt Count MPV Neut % (Auto) Lymph % (Auto) [place] % (Auto) Eos % (Auto) Baso % (Auto) Neut # (Auto) Lymph # (Auto) [place] # (Auto) Eos # (Auto) Baso # (Auto) PT INR APTT pO2 VBG pH VBG pCO2 VBG HCO3 VBG Total CO2 VBG O2 Sat (Calc) VBG Base Excess VBG Potassium Glucose Lactate FiO2 Crit Value Called To Crit Value Called By Crit Value Read Back Blood Gas Notified Time Sodium Potassium Chloride Carbon Dioxide Anion Gap BUN Creatinine Est GFR ( Amer) Est GFR (Non-Af Amer) Random Glucose Calcium Total Bilirubin AST ALT Alkaline Phosphatase Ammonia Troponin I NT-Pro-B Natriuret Pep Total Protein Albumin Globulin Albumin/Globulin Ratio Venous Blood Potassium Urine Color [place] Urine Clarity Cloudy Urine pH 5.0 Ur Specific [place] 1.020 Urine Protein Negative Urine Glucose (UA) Neg Urine Ketones Negative Urine Blood Large Urine Nitrate Negative Urine Bilirubin Negative Urine Urobilinogen 4.0 Ur Leukocyte Esterase Small Urine RBC (Auto) 115 H Urine Microscopic WBC 33 H Ur Squamous Epith Cells 5 Urine Bacteria Occ H Hyaline Casts 6-10 H - Imaging and Cardiology Chest x-ray Status: Image reviewed by me Additional comment: Right paracardiac infiltrate CT scan - chest Status: Image reviewed by me Additional comment: No hemorrhage nor masses seen. Assessment & Plan - Assessment and Plan (Free Text) Assessment: #. Dehydration #. Acute Renal failure #. Hypotension #. Hypernatremia #. AMS #. Elevated Ammonia #. Right Basal infiltrate, Atelectasis vs Pneumonia Plan: 73 years old male sent to the ED from [facility] because of abnormal Laboratory results showing elevated creatinine and BUN and him being weak with poor intake. His BUN and Creatinine on discharge was 27 and 1.0 with a Hemoglobin of 14.9: In the Ed today the patient is arousable to being alert and attempts to answer questions with minimal grunting sounds. His blood pressure initially was 100/63mmHg falling to a Systolic of 40s then 88/62mmHg #. Acute Renal failure secondary to poor intake and dehydration - IV Fluids - Follow Renal labs #. Hypotension secondary to the Dehydration. Sepsis does not appear to be present with lactate of 2.2 No fever, no leukocytoisis with respiration of 20 - Upgrade to ICU for continuous blood pressure monitoring - IV fluids - Add Norepinephrine if no improvement with fluids #. Hypernatremia due to dehydration - Change IV fluids to 0.45NS as soon as blood pressure has stabilized - Follow electrolytes #. AMS is most likely a Metabolic Encepohalopathy Caused by the renal failure and Hyperammonemia - Treat AKA and Ammonia elevation - Neuro checks #. Elevated Ammonia - lactulose #. Right Basal infiltrate, Atelectasis vs Pneumonia - Azithromycin - ceftriaxone - Tamara Martin MD - Date & Time Date: 08/16/18 Time: 23:13
[2018-08-16] MEDS ORDERED: Sodium Chloride 0.9% 500 ML IV ONE (23:41)
[2018-08-16] MEDS ORDERED: Dextrose 50% SYRINGE Inj (50 ml) IVP ONE (23:53)
[2018-08-17] MEDS ORDERED: Dextrose 50% SYRINGE Inj (50 ml) ONE (00:14)
[2018-08-17] MEDS ORDERED: Lactulose 10 gm/15 ml (Rectal Use) PR ONE (01:26)
[2018-08-17] MEDS ORDERED: Dextrose 5%/0.45% NS 1,000 ML IV SCH (01:30)
[2018-08-17 06:35] LABS: BASO # 0.1 K/uL (0.0-0.2); BASO % 0.7 % (0.0-2.0); EOS # 0.1 K/uL (0.0-0.7); EOS % 1.2 % (0.0-4.0); HEMOGLOBIN 13.7 g/dL (12.0-18.0); LYMPH # 1.3 K/uL (1.0-4.3); LYMPH % 17.1 % (20.0-40.0); MEAN CELL VOLUME 89.4 fl (80.0-94.0); MEAN CORPUSCULAR HEMOGLOBIN 28.8 pg (27.0-31.0); MEAN CORPUSCULAR HGB CONC 32.3 g/dL (33.0-37.0); MEAN PLATELET VOLUME 11.6 fl (7.2-11.7); MONO # 0.8 K/uL (0.0-0.8); MONO % 9.8 % (0.0-10.0); NEUT # 5.5 K/uL (1.8-7.0); NEUT % 71.2 % (50.0-75.0); NRBC % 0.1 % (0.0-0.0); RBC 4.75 Mil/uL (4.40-5.90); RED CELL DISTRIBUTION WIDTH 14.9 % (11.5-14.5); WHITE BLOOD COUNT 7.7 K/uL (4.8-10.8)
[2018-08-17 06:46] LABS: CALCIUM 8.1 mg/dL (8.4-10.2)
--- NOTE | 2018-08-17 08:21 | RAD ---
Date of service: 08/17/2018 HISTORY: Follow up infiltrate at right lung base COMPARISON: Frontal chest radiograph 08/16/2018. FINDINGS: LUNGS: Pulmonary vascular congestion pattern appears increased with mid to inferior pulmonary airspace disease not excluded once again. Minimal pleural effusions are not excluded bilaterally. No pneumothorax bilaterally. Cardiomediastinal silhouette is stable. PLEURA: As above. CARDIOVASCULAR: As above. OSSEOUS STRUCTURES: No significant abnormalities. VISUALIZED UPPER ABDOMEN: Normal. OTHER FINDINGS: None. IMPRESSION: Increased pulmonary vascular congestion with trace pleural effusions question bilaterally. Underlying airspace disease not excluded at the mid to inferior pulmonary lung zones mildly.
--- NOTE | 2018-08-17 08:58 | RAD ---
Date of service: 08/16/2018 PROCEDURE: CHEST RADIOGRAPH, 1 VIEW HISTORY: AMS COMPARISON: Portable chest 08/06/2018. FINDINGS: LUNGS: Diminished inspiratory volume. Limited medial basilar airspace disease identified with linear atelectasis at the left base. No definite left-sided airspace disease. Crowding of the bronchovascular markings identified in the bilateral bases. PLEURA: Trace left pleural effusion. None is seen the right. No pneumothorax bilaterally. CARDIOVASCULAR: Normal. OSSEOUS STRUCTURES: No significant abnormalities. VISUALIZED UPPER ABDOMEN: Normal. OTHER FINDINGS: None. IMPRESSION: Diminished history effort crowds the bilateral bronchovascular bases with limited airspace disease identified at the medial right base. Linear atelectasis left base. Trace of pleural effusion evident.
--- NOTE | 2018-08-17 09:10 | CARD ---
APPROVED REPORT Date of service: 08/16/2018 EKG Measurement Heart [id number] <Conclusion> Normal sinus rhythm Nonspecific ST abnormality Abnormal ECG
[2018-08-17] MEDS ORDERED: cefTRIAXone (Rocephin) 1 gm Inj ONE (09:21)
[2018-08-17] MEDS ORDERED: Azithromycin 500 MG IV IVPB ONE (10:46)
[2018-08-17] MEDS: Azithromycin 500 MG in Sodium Chloride 0.9% 250 ML IVPB SCH (10:51)
--- NOTE | 2018-08-17 11:23 | CT ---
Date of service: 08/16/2018 PROCEDURE: CT HEAD WITHOUT CONTRAST. HISTORY: AMS COMPARISON: 08/06/2018 TECHNIQUE: Axial computed tomography images were obtained through the head/brain without intravenous contrast. Supplemental Coronal and Sagittal projections created and reviewed. Radiation dose: Total exam DLP = 1762.37 mGy-cm. This CT exam was performed using one or more of the following dose reduction techniques: Automated exposure control, adjustment of the mA and/or kV according to patient size, and/or use of iterative reconstruction technique. FINDINGS: HEMORRHAGE: No intracranial hemorrhage. BRAIN: No mass effect or edema. Cortical and cerebellar atrophy, periventricular small vessel disease. VENTRICLES: Unremarkable. No hydrocephalus. CALVARIUM: Unremarkable. PARANASAL SINUSES: Unremarkable as visualized. No significant inflammatory changes. MASTOID AIR CELLS: Unremarkable as visualized. No inflammatory changes. OTHER FINDINGS: None. IMPRESSION: No acute intracranial abnormalities. No significant findings to account for the clinical presentation. No significant interval change compared to the prior examination(s). Concordant results (preliminary interpretation) provided by [facility]. Procedure Completed: 18:26 Preliminary Report: Dictated and Authenticated: 19:43 Final Interpretation: 11:21. August 17, 2018
--- NOTE | 2018-08-17 13:17 | CP.PCM.CON ---
History of Present Illness - History of Present Illness History of Present Illness: Infectious Disease Consultation Note- asked to see this patient at the request of for ? pneumonia, hypothermia and help with antibiotic management. HPI- History obtained from the medical chart and since the patient is not verbal and does not provide any answers. Patient is a 73 years old male sent to the ED from [facility] because of abnormal Laboratory results showing elevated creatinine and BUN and poor oral intake and weakness This patient was last admitted to the [facility] on 08/06/18 and discharged on 08/13/18 with dx of ISAURO, AMS . as per last admission there was no infectious concern and he was not on any antibiotics. as per he was given so far one dose levaquin in [place] because he was found to be hypotensive and hypothermic and more weak pending results and transfer to [facility] . currently pt. is resting in tele floor. He awakens when his name is called but does not answer any questions. he currently has warming blanket on him. PMH: ISAURO; AMS PSH: Unknown Surgical hx because of patient's poor communication SH: Alcohol abuse; No illegal drug use; No smoking ; reside at [facility] FH: Unknown Family Hx Allergies: NKDA Review of Systems - Review of Systems Review of Systems: ROS- Unable to obtain as pt. does not answer any questions. Past Patient History - Infectious Disease Hx of Infectious Diseases: None - Past Medical History & Family History Past Medical History?: Yes - Past Social History Smoking Status: Unknown If Ever Smoked Chewing Tobacco Use: No Cigar Use: No Alcohol: None Drugs: Denies Home Situation {Lives}: Senior Living - CARDIAC Hx Cardiac Disorders: No - PULMONARY Hx Respiratory Disorders: No - NEUROLOGICAL Hx Neurological Disorder: Yes - HEENT Hx HEENT Problems: No - RENAL Hx Renal Failure: Yes Other/Comment: Acute Kidney injury - HEMATOLOGICAL/ONCOLOGICAL Hx Blood Disorders: No - INTEGUMENTARY Hx Dermatological Problems: No - MUSCULOSKELETAL/RHEUMATOLOGICAL Hx Musculoskeletal Disorders: No - GASTROINTESTINAL Hx Gastrointestinal Disorders: No - GENITOURINARY/GYNECOLOGICAL Hx Genitourinary Disorders: No - PSYCHIATRIC Hx Psychophysiologic Disorder: No - SURGICAL HISTORY Hx Surgeries: No (Unknown) - ANESTHESIA Hx Anesthesia: No (Unknown) Meds Allergies/Adverse Reactions: Allergies Allergy/AdvReac Type Severity Reaction Status Date / Time No Known Allergies Allergy Verified 08/06/18 11:02 - Medications Medications: Current Medications Heparin Sodium (Porcine) (Heparin) 5,000 units SC Q8 JAMIE; Protocol Last Admin: 08/17/18 04:21 Dose: 5,000 units Folic Acid 1 mg/ Sodium (Chloride) 100.2 mls @ 60 mls/hr IVPB DAILY JAMIE Ceftriaxone Sodium 1 gm/ (Sodium Chloride) 100 mls @ 100 mls/hr IVPB DAILY JAMIE; Protocol Last Admin: 08/17/18 09:27 Dose: 100 mls/hr Azithromycin 500 mg/ Sodium (Chloride) 250 mls @ 250 mls/hr IVPB DAILY JAMIE; Protocol Last Admin: 08/17/18 10:51 Dose: 250 mls/hr Dextrose/Sodium Chloride (Dextrose 5%-0.45% Ns 500 Ml) 1,000 mls @ 150 mls/hr IV .Q6H40M JAMIE Stop: 08/18/18 06:58 Last Admin: 08/17/18 07:20 Dose: 150 mls/hr Thiamine HCl (Vitamin B1 Inj) 100 mg IV DAILY JAMIE Physical Exam - Constitutional Appears: Chronically Ill - Head Exam Head Exam: ATRAUMATIC - ENT Exam Additional comments: dry oral mucosa - Neck Exam Neck exam: Positive for: Full Rom - Respiratory Exam Respiratory Exam: NORMAL BREATHING PATTERN Additional comments: decreased breath sounds at bases No wheezing - Cardiovascular Exam Cardiovascular Exam: RRR, +S1, +S2 - GI/Abdominal Exam GI & Abdominal Exam: Distended Additional comments: hypoactive BS NT - Extremities Exam Additional comments: No edema b/l LE - Neurological Exam Additional comments: awakens when his name is called but groggy Results - Vital Signs Recent Vital Signs: Last Vital Signs Temp 97.3 F L 08/17/18 12:16 Pulse 72 08/17/18 12:16 Resp 18 08/17/18 12:16 BP 90/55 L 08/17/18 12:16 Pulse Ox 100 08/17/18 12:16 - Labs Result Diagrams: 08/17/18 05:35 08/17/18 05:35 Labs: Laboratory Results - last 24 hr 08/16/18 08/16/18 08/16/18 18:57 18:57 18:57 WBC 8.3 RBC 5.63 Hgb 16.4 Hct 50.7 MCV 90.0 MCH 29.2 MCHC 32.5 L RDW 15.2 H Plt Count 118 L D MPV 11.0 Neut % (Auto) 69.7 Lymph % (Auto) 15.9 L [place] % (Auto) 11.5 H Eos % (Auto) 1.5 Baso % (Auto) 1.4 Neut # (Auto) 5.8 Lymph # (Auto) 1.3 [place] # (Auto) 1.0 H Eos # (Auto) 0.1 Baso # (Auto) 0.1 PT INR APTT pO2 VBG pH VBG pCO2 VBG HCO3 VBG Total CO2 VBG O2 Sat (Calc) VBG Base Excess VBG Potassium Glucose Lactate FiO2 Crit Value Called To Crit Value Called By Crit Value Read Back Blood Gas Notified Time Sodium 149 H Potassium 5.0 Chloride 123 H Carbon Dioxide 13 L Anion Gap 18 BUN 69 H Creatinine 2.0 H Est GFR ( Amer) 40 Est GFR (Non-Af Amer) 33 POC Glucose (mg/dL) Random Glucose 76 Calcium 9.1 Total Bilirubin 1.6 H AST 99 H ALT 47 Alkaline Phosphatase 244 H Ammonia 77 H D Troponin I 0.0400 NT-Pro-B Natriuret Pep Total Protein 7.3 Albumin 2.9 L Globulin 4.5 H Albumin/Globulin Ratio 0.6 L TSH 3rd Generation Venous Blood Potassium Urine Color Urine Clarity Urine pH Ur Specific [place] Urine Protein Urine Glucose (UA) Urine Ketones Urine Blood Urine Nitrate Urine Bilirubin Urine Urobilinogen Ur Leukocyte Esterase Urine RBC (Auto) Urine Microscopic WBC Ur Squamous Epith Cells Urine Bacteria Hyaline Casts 08/16/18 08/16/18 08/16/18 18:57 19:59 20:54 WBC RBC Hgb Hct MCV MCH MCHC RDW Plt Count MPV Neut % (Auto) Lymph % (Auto) [place] % (Auto) Eos % (Auto) Baso % (Auto) Neut # (Auto) Lymph # (Auto) [place] # (Auto) Eos # (Auto) Baso # (Auto) PT 12.7 INR 1.1 APTT 34.6 pO2 46 VBG pH 7.31 L VBG pCO2 29 L VBG HCO3 16.4 VBG Total CO2 15.5 L VBG O2 Sat (Calc) 85.8 H VBG Base Excess -10.2 L VBG Potassium 5.1 Glucose 57 L Lactate 2.2 H FiO2 21.0 Crit Value Called To jorgito Levine Crit Value Called By Scarlett spaulding Crit Value Read Back Y Blood Gas Notified Time 2102 Sodium 154.0 H Potassium Chloride 109.0 H Carbon Dioxide Anion Gap BUN Creatinine Est GFR ( Amer) Est GFR (Non-Af Amer) POC Glucose (mg/dL) Random Glucose Calcium Total Bilirubin AST ALT Alkaline Phosphatase Ammonia Troponin I NT-Pro-B Natriuret Pep 1320 H Total Protein Albumin Globulin Albumin/Globulin Ratio TSH 3rd Generation Venous Blood Potassium 5.1 Urine Color Urine Clarity Urine pH Ur Specific [place] Urine Protein Urine Glucose (UA) Urine Ketones Urine Blood Urine Nitrate Urine Bilirubin Urine Urobilinogen Ur Leukocyte Esterase Urine RBC (Auto) Urine Microscopic WBC Ur Squamous Epith Cells Urine Bacteria Hyaline Casts 08/16/18 08/16/18 08/17/18 21:14 23:40 03:30 WBC RBC Hgb Hct MCV MCH MCHC RDW Plt Count MPV Neut % (Auto) Lymph % (Auto) [place] % (Auto) Eos % (Auto) Baso % (Auto) Neut # (Auto) Lymph # (Auto) [place] # (Auto) Eos # (Auto) Baso # (Auto) PT INR APTT pO2 VBG pH VBG pCO2 VBG HCO3 VBG Total CO2 VBG O2 Sat (Calc) VBG Base Excess VBG Potassium Glucose Lactate FiO2 Crit Value Called To Crit Value Called By Crit Value Read Back Blood Gas Notified Time Sodium Potassium Chloride Carbon Dioxide Anion Gap BUN Creatinine Est GFR ( Amer) Est GFR (Non-Af Amer) POC Glucose (mg/dL) 70 206 H Random Glucose Calcium Total Bilirubin AST ALT Alkaline Phosphatase Ammonia Troponin I NT-Pro-B Natriuret Pep Total Protein Albumin Globulin Albumin/Globulin Ratio TSH 3rd Generation Venous Blood Potassium Urine Color [place] Urine Clarity Cloudy Urine pH 5.0 Ur Specific [place] 1.020 Urine Protein Negative Urine Glucose (UA) Neg Urine Ketones Negative Urine Blood Large Urine Nitrate Negative Urine Bilirubin Negative Urine Urobilinogen 4.0 Ur Leukocyte Esterase Small Urine RBC (Auto) 115 H Urine Microscopic WBC 33 H Ur Squamous Epith Cells 5 Urine Bacteria Occ H Hyaline Casts 6-10 H 08/17/18 08/17/18 08/17/18 05:35 05:35 09:09 WBC 7.7 RBC 4.75 Hgb 13.7 D Hct 42.5 MCV 89.4 MCH 28.8 MCHC 32.3 L RDW 14.9 H Plt Count 116 L MPV 11.6 Neut % (Auto) 71.2 Lymph % (Auto) 17.1 L [place] % (Auto) 9.8 Eos % (Auto) 1.2 Baso % (Auto) 0.7 Neut # (Auto) 5.5 Lymph # (Auto) 1.3 [place] # (Auto) 0.8 Eos # (Auto) 0.1 Baso # (Auto) 0.1 PT INR APTT pO2 VBG pH VBG pCO2 VBG HCO3 VBG Total CO2 VBG O2 Sat (Calc) VBG Base Excess VBG Potassium Glucose Lactate FiO2 Crit Value Called To Crit Value Called By Crit Value Read Back Blood Gas Notified Time Sodium 148 Potassium 4.0 Chloride 125 H Carbon Dioxide 13 L Anion Gap 14 BUN 66 H Creatinine 1.9 H Est GFR ( Amer) 42 Est GFR (Non-Af Amer) 35 POC Glucose (mg/dL) 141 H Random Glucose 191 H Calcium 8.1 L Total Bilirubin AST ALT Alkaline Phosphatase Ammonia Troponin I NT-Pro-B Natriuret Pep Total Protein Albumin Globulin Albumin/Globulin Ratio TSH 3rd Generation 6.76 H Venous Blood Potassium Urine Color Urine Clarity Urine pH Ur Specific [place] Urine Protein Urine Glucose (UA) Urine Ketones Urine Blood Urine Nitrate Urine Bilirubin Urine Urobilinogen Ur Leukocyte Esterase Urine RBC (Auto) Urine Microscopic WBC Ur Squamous Epith Cells Urine Bacteria Hyaline Casts Laboratory Results - last 72 hr 08/16/18 08/16/18 08/16/18 18:57 18:57 18:57 WBC 8.3 RBC 5.63 Hgb 16.4 Hct 50.7 MCV 90.0 MCH 29.2 MCHC 32.5 L RDW 15.2 H Plt Count 118 L D MPV 11.0 Neut % (Auto) 69.7 Lymph % (Auto) 15.9 L [place] % (Auto) 11.5 H Eos % (Auto) 1.5 Baso % (Auto) 1.4 Neut # (Auto) 5.8 Lymph # (Auto) 1.3 [place] # (Auto) 1.0 H Eos # (Auto) 0.1 Baso # (Auto) 0.1 PT INR APTT pO2 VBG pH VBG pCO2 VBG HCO3 VBG Total CO2 VBG O2 Sat (Calc) VBG Base Excess VBG Potassium Glucose Lactate FiO2 Crit Value Called To Crit Value Called By Crit Value Read Back Blood Gas Notified Time Sodium 149 H Potassium 5.0 Chloride 123 H Carbon Dioxide 13 L Anion Gap 18 BUN 69 H Creatinine 2.0 H Est GFR ( Amer) 40 Est GFR (Non-Af Amer) 33 POC Glucose (mg/dL) Random Glucose 76 Calcium 9.1 Total Bilirubin 1.6 H AST 99 H ALT 47 Alkaline Phosphatase 244 H Ammonia 77 H D Troponin I 0.0400 NT-Pro-B Natriuret Pep Total Protein 7.3 Albumin 2.9 L Globulin 4.5 H Albumin/Globulin Ratio 0.6 L TSH 3rd Generation Venous Blood Potassium Urine Color Urine Clarity Urine pH Ur Specific [place] Urine Protein Urine Glucose (UA) Urine Ketones Urine Blood Urine Nitrate Urine Bilirubin Urine Urobilinogen Ur Leukocyte Esterase Urine RBC (Auto) Urine Microscopic WBC Ur Squamous Epith Cells Urine Bacteria Hyaline Casts 08/16/18 08/16/18 08/16/18 18:57 19:59 20:54 WBC RBC Hgb Hct MCV MCH MCHC RDW Plt Count MPV Neut % (Auto) Lymph % (Auto) [place] % (Auto) Eos % (Auto) Baso % (Auto) Neut # (Auto) Lymph # (Auto) [place] # (Auto) Eos # (Auto) Baso # (Auto) PT 12.7 INR 1.1 APTT 34.6 pO2 46 VBG pH 7.31 L VBG pCO2 29 L VBG HCO3 16.4 VBG Total CO2 15.5 L VBG O2 Sat (Calc) 85.8 H VBG Base Excess -10.2 L VBG Potassium 5.1 Glucose 57 L Lactate 2.2 H FiO2 21.0 Crit Value Called To jorgito Levine Crit Value Called By Scarlett spaulding Crit Value Read Back Y Blood Gas Notified Time 2102 Sodium 154.0 H Potassium Chloride 109.0 H Carbon Dioxide Anion Gap BUN Creatinine Est GFR ( Amer) Est GFR (Non-Af Amer) POC Glucose (mg/dL) Random Glucose Calcium Total Bilirubin AST ALT Alkaline Phosphatase Ammonia Troponin I NT-Pro-B Natriuret Pep 1320 H Total Protein Albumin Globulin Albumin/Globulin Ratio TSH 3rd Generation Venous Blood Potassium 5.1 Urine Color Urine Clarity Urine pH Ur Specific [place] Urine Protein Urine Glucose (UA) Urine Ketones Urine Blood Urine Nitrate Urine Bilirubin Urine Urobilinogen Ur Leukocyte Esterase Urine RBC (Auto) Urine Microscopic WBC Ur Squamous Epith Cells Urine Bacteria Hyaline Casts 08/16/18 08/16/18 08/17/18 21:14 23:40 03:30 WBC RBC Hgb Hct MCV MCH MCHC RDW Plt Count MPV Neut % (Auto) Lymph % (Auto) [place] % (Auto) Eos % (Auto) Baso % (Auto) Neut # (Auto) Lymph # (Auto) [place] # (Auto) Eos # (Auto) Baso # (Auto) PT INR APTT pO2 VBG pH VBG pCO2 VBG HCO3 VBG Total CO2 VBG O2 Sat (Calc) VBG Base Excess VBG Potassium Glucose Lactate FiO2 Crit Value Called To Crit Value Called By Crit Value Read Back Blood Gas Notified Time Sodium Potassium Chloride Carbon Dioxide Anion Gap BUN Creatinine Est GFR ( Amer) Est GFR (Non-Af Amer) POC Glucose (mg/dL) 70 206 H Random Glucose Calcium Total Bilirubin AST ALT Alkaline Phosphatase Ammonia Troponin I NT-Pro-B Natriuret Pep Total Protein Albumin Globulin Albumin/Globulin Ratio TSH 3rd Generation Venous Blood Potassium Urine Color [place] Urine Clarity Cloudy Urine pH 5.0 Ur Specific [place] 1.020 Urine Protein Negative Urine Glucose (UA) Neg Urine Ketones Negative Urine Blood Large Urine Nitrate Negative Urine Bilirubin Negative Urine Urobilinogen 4.0 Ur Leukocyte Esterase Small Urine RBC (Auto) 115 H Urine Microscopic WBC 33 H Ur Squamous Epith Cells 5 Urine Bacteria Occ H Hyaline Casts 6-10 H 08/17/18 08/17/18 08/17/18 05:35 05:35 09:09 WBC 7.7 RBC 4.75 Hgb 13.7 D Hct 42.5 MCV 89.4 MCH 28.8 MCHC 32.3 L RDW 14.9 H Plt Count 116 L MPV 11.6 Neut % (Auto) 71.2 Lymph % (Auto) 17.1 L [place] % (Auto) 9.8 Eos % (Auto) 1.2 Baso % (Auto) 0.7 Neut # (Auto) 5.5 Lymph # (Auto) 1.3 [place] # (Auto) 0.8 Eos # (Auto) 0.1 Baso # (Auto) 0.1 PT INR APTT pO2 VBG pH VBG pCO2 VBG HCO3 VBG Total CO2 VBG O2 Sat (Calc) VBG Base Excess VBG Potassium Glucose Lactate FiO2 Crit Value Called To Crit Value Called By Crit Value Read Back Blood Gas Notified Time Sodium 148 Potassium 4.0 Chloride 125 H Carbon Dioxide 13 L Anion Gap 14 BUN 66 H Creatinine 1.9 H Est GFR ( Amer) 42 Est GFR (Non-Af Amer) 35 POC Glucose (mg/dL) 141 H Random Glucose 191 H Calcium 8.1 L Total Bilirubin AST ALT Alkaline Phosphatase Ammonia Troponin I NT-Pro-B Natriuret Pep Total Protein Albumin Globulin Albumin/Globulin Ratio TSH 3rd Generation 6.76 H Venous Blood Potassium Urine Color Urine Clarity Urine pH Ur Specific [place] Urine Protein Urine Glucose (UA) Urine Ketones Urine Blood Urine Nitrate Urine Bilirubin Urine Urobilinogen Ur Leukocyte Esterase Urine RBC (Auto) Urine Microscopic WBC Ur Squamous Epith Cells Urine Bacteria Hyaline Casts Assessment & Plan (1) Acute renal failure Status: Acute (2) Weakness Status: Acute Priority: High (3) Hypothermia Status: Acute (4) Hypoventilation Status: Acute - Assessment and Plan (Free Text) Assessment: A/P- 73 year old male from [place] admitted with weakness, poor oral intake and found to be in Acute renal insufficiency and hypothermi hypotensive. Pt.is afebrile and has normal wbc cxr report noted. distended abdomen on exam plan- check UA and urine cx. check blood cx. check abd xray r/o ileus. since pt. was recently d/c from hospital advise to cover for hospital acquired pathogens pending further results. place on IV zosyn (renal dose) . IV hydration as per primary doctor. all labs and imaging reviewed and case d/w . Thank you for allowing me to take part in the care of this patient.
[2018-08-17] MEDS: Thiamine 100 mg/ml Inj IV SCH (15:32)
--- NOTE | 2018-08-17 17:15 | CARD ---
APPROVED REPORT Date of service: 08/17/2018 EXAM: Two-dimensional and M-mode echocardiogram with Doppler and color Doppler. Other Information Quality : FairRhythm : NSR Technically limited study due to body habitus. INDICATION Pulmonary Congestion 2D DIMENSIONS IVSd0.78 (0.7-1.1cm)LVDd3.54 (3.9-5.9cm) LVOT Diameter1.66 (1.8-2.4cm)PWd0.64 (0.7-1.1cm) IVSs0.97 (0.8-1.2cm)LVDs2.25 (2.5-4.0cm) FS (%) 36.5 %PWs1.23 (0.8-1.2cm) M-Mode DIMENSIONS Left Atrium (MM)3.53 (2.5-4.0cm)Aortic Root2.91 (2.2-3.7cm) Aortic Cusp Exc.1.71 (1.5-2.0cm) Aortic Valve AoV Peak Xvzyaues502.9cm/sAoV VTI22.6cmAO Peak GR.7mmHg LVOT Peak Lmnouplc52.8cm/sLVOT VTI4.85cmAO Mean GR.3mmHg DIOMEDES (VMAX)0.63bx1BLS (VTI)0.23cm2 Mitral Valve MV E Gcpwcsxc81.7cm/sMV DECEL [id number] A Shscgsqy39.3cm/s MV QWP82luN/A ratio0.7MVA (PHT)3.39cm2 TDI E/Lateral E'0.0E/Medial E'0.0 Tricuspid Valve TR Peak Rqfokxrw467dh/sRAP NQLKVJIV21crVtWD Peak Gr.29mmHg [id number] LEFT VENTRICLE The left ventricle is normal size. There is normal left ventricular wall thickness. The left ventricular systolic function is normal. The estimated ejection fraction is 55-60% No regional wall motion abnormalities noted.. Transmitral Doppler flow pattern is Grade I-abnormal relaxation pattern. No left ventricle thrombus noted on this study. There is no ventricular septal defect visualized. There is no left ventricular aneurysm. There is no mass noted in the left ventricle. RIGHT VENTRICLE The right ventricle is normal size. There is normal right ventricular wall thickness. The right ventricular systolic function is normal. ATRIA The left atrium is mildly dilated. The right atrium size is normal. The interatrial septum is intact with no evidence for an atrial septal defect. AORTIC VALVE The aortic valve is normal in structure. No aortic regurgitation is present. There is no aortic valvular stenosis. There is no aortic valvular vegetation. MITRAL VALVE The mitral valve is normal in structure. There is no evidence of mitral valve prolapse. There is no mitral valve stenosis. There is no mitral valve regurgitation noted. TRICUSPID VALVE The tricuspid valve leaflets are thickened , but open well. There is possible vegetation on lateral leaflets. There is mild to moderate tricuspid regurgitation. RVSP is calculated at 30 mm Hg. There is no tricuspid valve prolapse or vegetation. There is no tricuspid valve stenosis. PULMONIC VALVE The pulmonary valve is normal in structure. There is no pulmonic valvular regurgitation. There is no pulmonic valvular stenosis. GREAT VESSELS The aortic root is normal in size. The ascending aorta is normal in size. The pulmonary artery is normal. The IVC is normal in size and collapses >50% with inspiration. PERICARDIAL EFFUSION There is no pericardial effusion. There is no pleural effusion. <Conclusion> Technically difficult study due to body habitus. The estimated ejection fraction is 55-60% Transmitral Doppler flow pattern is Grade I-abnormal relaxation pattern. The left atrium is mildly dilated. There is mild to moderate tricuspid regurgitation. RVSP is calculated at 30 mm Hg. There is possible tricuspid valve vegetation. Consider MARION if there is clinical suspicion for endocarditis.
--- NOTE | 2018-08-17 23:27 | CP.PCM.HP ---
History of Present Illness - History of Present Illness History of Present Illness: CC: Generalized Weakness and Poor PO Intake, and abnormal Labs History of Preent Illness: A 73 years old male H/O Chronic ETOH use and Dementia was sent from [facility] for Generalized weak and poor Po intake, and Abnormal Labs (Acute Renal Failure and Hypernatremia with Broncho-PNA on CXR). This patient was last admitted to the [facility] on 08/06/18 and discharged on 08/13/18 with dx of ISAURO, AMS and ETOH abuse. His BUN and Creatinine on discharge was 27 and 1.0 with a Hemoglobin of 14.9: In the Ed today the patient is arousable to being alert and attempts to answer questions with minimal grunting sounds. His blood pressure initially was 100/63mmHg falling to a Systolic of 40s then 88/62mmHg when ICU was consulted. After IV Bolus, patient's BP improved and downgraded by ICU. He was also found to be Hypothermia and on Bear-hagger. Present on Admission - Present on Admission Any Indicators Present on Admission: No Review of Systems - Review of Systems All systems: reviewed and no additional remarkable complaints except Review of Systems: As per HPI Past Patient History - Infectious Disease Hx of Infectious Diseases: None - Past Medical History & Family History Past Medical History?: Yes Past Family History: Reviewed and not pertinent - Past Social History Smoking Status: Unknown If Ever Smoked Chewing Tobacco Use: No Cigar Use: No Alcohol: None Drugs: Denies Home Situation {Lives}: Jail - CARDIAC Hx Cardiac Disorders: No - PULMONARY Hx Respiratory Disorders: No - NEUROLOGICAL Hx Neurological Disorder: Yes - HEENT Hx HEENT Problems: No - RENAL Hx Renal Failure: Yes Other/Comment: Acute Kidney injury - HEMATOLOGICAL/ONCOLOGICAL Hx Blood Disorders: No - INTEGUMENTARY Hx Dermatological Problems: No - MUSCULOSKELETAL/RHEUMATOLOGICAL Hx Musculoskeletal Disorders: No - GASTROINTESTINAL Hx Gastrointestinal Disorders: No - GENITOURINARY/GYNECOLOGICAL Hx Genitourinary Disorders: No - PSYCHIATRIC Hx Psychophysiologic Disorder: No - SURGICAL HISTORY Hx Surgeries: No (Unknown) - ANESTHESIA Hx Anesthesia: No (Unknown) Meds Allergies/Adverse Reactions: Allergies Allergy/AdvReac Type Severity Reaction Status Date / Time No Known Allergies Allergy Verified 08/06/18 11:02 Physical Exam - Constitutional Appears: In Acute Distress, Unkempt, Chronically Ill - Head Exam Head Exam: ATRAUMATIC, NORMAL INSPECTION, NORMOCEPHALIC - Eye Exam Eye Exam: EOMI, Normal appearance, PERRL Pupil Exam: NORMAL ACCOMODATION, PERRL - ENT Exam ENT Exam: Mucous Membranes Moist, Normal Exam - Neck Exam Neck exam: Positive for: Normal Inspection - Respiratory Exam Respiratory Exam: Clear to Auscultation Bilateral, NORMAL BREATHING PATTERN - Cardiovascular Exam Cardiovascular Exam: REGULAR RHYTHM, +S1, +S2 - GI/Abdominal Exam GI & Abdominal Exam: Normal Bowel Sounds, Soft. absent: Tenderness - Extremities Exam Extremities exam: Positive for: normal inspection Additional comments: Elongated Nails with pressure on the Toes. - Back Exam Back exam: NORMAL INSPECTION - Neurological Exam Neurological exam: Altered, Motor Sensory Deficit Additional comments: Drowsy bu arousable. - Psychiatric Exam Psychiatric exam: Flat Affect - Skin Skin Exam: Dry, Intact, Normal Color, Warm Results - Vital Signs Recent Vital Signs: Last Vital Signs Temp 97.3 F L 08/17/18 19:39 Pulse 68 08/17/18 19:39 Resp 20 08/17/18 19:39 BP 90/54 L 08/17/18 19:39 Pulse Ox 98 08/17/18 19:39 - Labs Result Diagrams: 08/22/18 16:06 08/22/18 16:06 Labs: Laboratory Results - last 24 hr 08/16/18 08/17/18 08/17/18 23:40 03:30 05:35 WBC 7.7 RBC 4.75 Hgb 13.7 D Hct 42.5 MCV 89.4 MCH 28.8 MCHC 32.3 L RDW 14.9 H Plt Count 116 L MPV 11.6 Neut % (Auto) 71.2 Lymph % (Auto) 17.1 L [place] % (Auto) 9.8 Eos % (Auto) 1.2 Baso % (Auto) 0.7 Neut # (Auto) 5.5 Lymph # (Auto) 1.3 [place] # (Auto) 0.8 Eos # (Auto) 0.1 Baso # (Auto) 0.1 Sodium Potassium Chloride Carbon Dioxide Anion Gap BUN Creatinine Est GFR ( Amer) Est GFR (Non-Af Amer) POC Glucose (mg/dL) 70 206 H Random Glucose Calcium Free T4 Free T3 pg/mL TSH 3rd Generation 08/17/18 08/17/18 08/17/18 05:35 09:09 14:32 WBC RBC Hgb Hct MCV MCH MCHC RDW Plt Count MPV Neut % (Auto) Lymph % (Auto) [place] % (Auto) Eos % (Auto) Baso % (Auto) Neut # (Auto) Lymph # (Auto) [place] # (Auto) Eos # (Auto) Baso # (Auto) Sodium 148 Potassium 4.0 Chloride 125 H Carbon Dioxide 13 L Anion Gap 14 BUN 66 H Creatinine 1.9 H Est GFR ( Amer) 42 Est GFR (Non-Af Amer) 35 POC Glucose (mg/dL) 141 H Random Glucose 191 H Calcium 8.1 L Free T4 Free T3 pg/mL 2.15 L TSH 3rd Generation 6.76 H 08/17/18 14:37 WBC RBC Hgb Hct MCV MCH MCHC RDW Plt Count MPV Neut % (Auto) Lymph % (Auto) [place] % (Auto) Eos % (Auto) Baso % (Auto) Neut # (Auto) Lymph # (Auto) [place] # (Auto) Eos # (Auto) Baso # (Auto) Sodium Potassium Chloride Carbon Dioxide Anion Gap BUN Creatinine Est GFR ( Amer) Est GFR (Non-Af Amer) POC Glucose (mg/dL) Random Glucose Calcium Free T4 1.49 Free T3 pg/mL TSH 3rd Generation - Imaging and Cardiology Chest x-ray Status: Report reviewed by me Additional comment: PROCEDURE: CHEST RADIOGRAPH, 1 VIEW HISTORY: AMS COMPARISON: Portable chest 08/06/2018. FINDINGS: LUNGS: Diminished inspiratory volume. Limited medial basilar airspace disease identified with linear atelectasis at the left base. No definite left-sided airspace disease. Crowding of the bronchovascular markings identified in the bilateral bases. PLEURA: Trace left pleural effusion. None is seen the right. No pneumothorax bilaterally. CARDIOVASCULAR: Normal. OSSEOUS STRUCTURES: No significant abnormalities. VISUALIZED UPPER ABDOMEN: Normal. OTHER FINDINGS: None. IMPRESSION: Diminished history effort crowds the bilateral bronchovascular bases with limited airspace disease identified at the medial right base. Linear atelectasis left base. Trace of pleural effusion evident. CT scan - head Status: Report reviewed by me Additional comment: No Acute finding Assessment & Plan (1) Sepsis Assessment and Plan: Pneumonia, Hypothermia Status: Acute (2) Acute renal failure Status: Acute Priority: High (3) Altered mental state Assessment and Plan: Possible Metabolic Encephalopathy Status: Acute Priority: High (4) Hypernatremia Status: Acute Priority: High (5) Altered mental status Status: Acute Priority: High - Assessment and Plan (Free Text) Plan: IVF Bear Hagger IV Zosyn and Vancomycin Blood, Sputum and Urine cultures ID Consult Monitor I/O, BMP
[2018-08-18] MEDS: Albuterol-Ipratrop 3 mg / 0.5 (3 ml) UD INH PRN (05:42)
[2018-08-18] MEDS: Azithromycin 500 MG in Sodium Chloride 0.9% 250 ML IVPB SCH (08:13)
[2018-08-18] MEDS ORDERED: Influenza Vaccine 60 MCG/0.5 ML SYR (3 yr & up) IM ONE (08:16)
[2018-08-18] MEDS: Thiamine 100 mg/ml Inj IV SCH (08:18)
[2018-08-18] MEDS: Sodium Chloride 0.9% 1,000 ML IV SCH (15:46)
[2018-08-18 16:29] LABS: CALCIUM 8.7 mg/dL (8.4-10.2)
--- NOTE | 2018-08-18 17:54 | US ---
Date of service: 08/18/2018 HISTORY: Abdominal Pain and Distention, Sepsis COMPARISON: 08/08/2018 renal ultrasound TECHNIQUE: Sonographic evaluation of the abdomen. FINDINGS: LIVER: Measures 14.4 cm. Patent portal vein. Portal venous flow: Hepatopetal. Unremarkable echogenicity of the liver parenchyma. No mass. No intrahepatic bile duct dilatation. GALLBLADDER: Sludge identified in a collapsed gallbladder. Otherwise unremarkable. COMMON BILE DUCT: Measures 4.4 mm. No stones. No dilatation. PANCREAS: Unremarkable as visualized. No mass. No ductal dilatation. RIGHT KIDNEY: Measures 4.2 x 9.1cm. Atrophic, increased echogenicity.. No calculus, mass, or hydronephrosis. LEFT KIDNEY: Measures 2.9 x 9.5cm. Atrophic, increased echogenicity. No calculus, mass, or hydronephrosis. SPLEEN: Normal in size and contour. No mass. AORTA: No aneurysmal dilatation. IVC: Unremarkable. OTHER FINDINGS: Large volume intra-abdominal ascites similar findings identified on the prior study. IMPRESSION: No acute findings related to/accounting for the clinical presentation. Stable findings with respect to the kidneys. Large volume intra-abdominal and pelvic ascites.
--- NOTE | 2018-08-18 17:55 | US ---
Date of service: 08/18/2018 PROCEDURE: Pelvic ultrasound HISTORY: Abdominal Pain and Distention COMPARISON: August 18, 2018 TECHNIQUE: Standard protocol for this study/examination. FINDINGS: Large volume lower abdominal and pelvic ascites. IMPRESSION: Pelvic and lower abdominal ascites. Otherwise unremarkable.
[2018-08-19] MEDS: Albuterol-Ipratrop 3 mg / 0.5 (3 ml) UD INH PRN (00:24)
[2018-08-19] MEDS: Sodium Chloride 0.9% 1,000 ML IV SCH ×3 (05:13→12:38)
[2018-08-19] MEDS: Thiamine 100 mg/ml Inj IV SCH (09:22)
--- NOTE | 2018-08-19 09:47 | CP.PCM.PN ---
Subjective - Date & Time of Evaluation Date of Evaluation: 08/19/18 Time of Evaluation: 09:47 - Subjective Subjective: ID note- Pt. seen and examined today in tele floor. patient is more awake and alert. denies any pain. Objective - Vital Signs/Intake and Output Vital Signs (last 24 hours): Temp Pulse Resp BP Pulse Ox 97.6 F 70 18 94/60 L 96 08/19/18 08:07 08/19/18 08:07 08/19/18 08:07 08/19/18 08:07 08/19/18 08:07 Intake and Output: 08/19/18 08/19/18 06:59 18:59 Intake Total 1300 Output Total 200 Balance 1100 - Medications Medications: Current Medications Albuterol/Ipratropium (Duoneb 3 Mg/0.5 Mg (3 Ml) Ud) 3 ml INH RQ6 PRN PRN Reason: Shortness of Breath Last Admin: 08/19/18 00:24 Dose: 3 ml Heparin Sodium (Porcine) (Heparin) 5,000 units SC Q8 JAMIE; Protocol Last Admin: 08/19/18 09:20 Dose: 5,000 units Folic Acid 1 mg/ Sodium (Chloride) 100.2 mls @ 60 mls/hr IVPB DAILY JAMIE Last Admin: 08/19/18 09:19 Dose: 60 mls/hr Azithromycin 500 mg/ Sodium (Chloride) 250 mls @ 250 mls/hr IVPB DAILY JAMIE; Protocol Last Admin: 08/18/18 08:13 Dose: 250 mls/hr Piperacillin Sod/Tazobactam (Sod 2.25 gm/ Sodium Chloride) 100 mls @ 100 mls/hr IVPB Q8 JAMIE; Protocol Last Admin: 08/19/18 00:59 Dose: 100 mls/hr Sodium Chloride (Sodium Chloride 0.9%) 1,000 mls @ 100 mls/hr IV .Q10H JAMIE Stop: 08/19/18 14:56 Last Admin: 08/19/18 09:20 Dose: 100 mls/hr Thiamine HCl (Vitamin B1 Inj) 100 mg IV DAILY JAMIE Last Admin: 08/19/18 09:22 Dose: 100 mg - Labs Labs: - Additional Findings Additional findings: - Constitutional Appears: Chronically Ill - Head Exam Head Exam: ATRAUMATIC - ENT Exam Additional comments: dry oral mucosa - Neck Exam Neck exam: Positive for: Full Rom - Respiratory Exam Respiratory Exam: NORMAL BREATHING PATTERN Additional comments: crackles bibasilar - Cardiovascular Exam Cardiovascular Exam: RRR, +S1, +S2 - GI/Abdominal Exam GI & Abdominal Exam: Distended Additional comments: hypoactive BS NT - Extremities Exam Additional comments: No edema b/l LE plantar aspect of b/l 2nd-4th digit and in between toe region with eschar and necrosis no malodor - Neurological Exam Additional comments: more awake today Laboratory Results - last 72 hr 08/16/18 08/16/18 08/16/18 18:57 18:57 18:57 WBC 8.3 RBC 5.63 Hgb 16.4 Hct 50.7 MCV 90.0 MCH 29.2 MCHC 32.5 L RDW 15.2 H Plt Count 118 L D MPV 11.0 Neut % (Auto) 69.7 Lymph % (Auto) 15.9 L [place] % (Auto) 11.5 H Eos % (Auto) 1.5 Baso % (Auto) 1.4 Neut # (Auto) 5.8 Lymph # (Auto) 1.3 [place] # (Auto) 1.0 H Eos # (Auto) 0.1 Baso # (Auto) 0.1 PT INR APTT pO2 VBG pH VBG pCO2 VBG HCO3 VBG Total CO2 VBG O2 Sat (Calc) VBG Base Excess VBG Potassium Glucose Lactate FiO2 Crit Value Called To Crit Value Called By Crit Value Read Back Blood Gas Notified Time Sodium 149 H Potassium 5.0 Chloride 123 H Carbon Dioxide 13 L Anion Gap 18 BUN 69 H Creatinine 2.0 H Est GFR ( Amer) 40 Est GFR (Non-Af Amer) 33 POC Glucose (mg/dL) Random Glucose 76 Calcium 9.1 Total Bilirubin 1.6 H AST 99 H ALT 47 Alkaline Phosphatase 244 H Ammonia 77 H D Troponin I 0.0400 NT-Pro-B Natriuret Pep Total Protein 7.3 Albumin 2.9 L Globulin 4.5 H Albumin/Globulin Ratio 0.6 L Free T4 Free T3 pg/mL TSH 3rd Generation Venous Blood Potassium Urine Color Urine Clarity Urine pH Ur Specific Vest Urine Protein Urine Glucose (UA) Urine Ketones Urine Blood Urine Nitrate Urine Bilirubin Urine Urobilinogen Ur Leukocyte Esterase Urine RBC (Auto) Urine Microscopic WBC Ur Squamous Epith Cells Urine Bacteria Hyaline Casts Ur L.pneumophila Ag 08/16/18 08/16/18 08/16/18 18:57 19:59 20:54 WBC RBC Hgb Hct MCV MCH MCHC RDW Plt Count MPV Neut % (Auto) Lymph % (Auto) [place] % (Auto) Eos % (Auto) Baso % (Auto) Neut # (Auto) Lymph # (Auto) [place] # (Auto) Eos # (Auto) Baso # (Auto) PT 12.7 INR 1.1 APTT 34.6 pO2 46 VBG pH 7.31 L VBG pCO2 29 L VBG HCO3 16.4 VBG Total CO2 15.5 L VBG O2 Sat (Calc) 85.8 H VBG Base Excess -10.2 L VBG Potassium 5.1 Glucose 57 L Lactate 2.2 H FiO2 21.0 Crit Value Called To jorgito Levine Crit Value Called By Scarlett spaulding Crit Value Read Back Y Blood Gas Notified Time 210 Sodium 154.0 H Potassium Chloride 109.0 H Carbon Dioxide Anion Gap BUN Creatinine Est GFR ( Amer) Est GFR (Non-Af Amer) POC Glucose (mg/dL) Random Glucose Calcium Total Bilirubin AST ALT Alkaline Phosphatase Ammonia Troponin I NT-Pro-B Natriuret Pep 1320 H Total Protein Albumin Globulin Albumin/Globulin Ratio Free T4 Free T3 pg/mL TSH 3rd Generation Venous Blood Potassium 5.1 Urine Color Urine Clarity Urine pH Ur Specific Vest Urine Protein Urine Glucose (UA) Urine Ketones Urine Blood Urine Nitrate Urine Bilirubin Urine Urobilinogen Ur Leukocyte Esterase Urine RBC (Auto) Urine Microscopic WBC Ur Squamous Epith Cells Urine Bacteria Hyaline Casts Ur L.pneumophila Ag 08/16/18 08/16/18 08/17/18 21:14 23:40 03:30 WBC RBC Hgb Hct MCV MCH MCHC RDW Plt Count MPV Neut % (Auto) Lymph % (Auto) [place] % (Auto) Eos % (Auto) Baso % (Auto) Neut # (Auto) Lymph # (Auto) [place] # (Auto) Eos # (Auto) Baso # (Auto) PT INR APTT pO2 VBG pH VBG pCO2 VBG HCO3 VBG Total CO2 VBG O2 Sat (Calc) VBG Base Excess VBG Potassium Glucose Lactate FiO2 Crit Value Called To Crit Value Called By Crit Value Read Back Blood Gas Notified Time Sodium Potassium Chloride Carbon Dioxide Anion Gap BUN Creatinine Est GFR ( Amer) Est GFR (Non-Af Amer) POC Glucose (mg/dL) 70 206 H Random Glucose Calcium Total Bilirubin AST ALT Alkaline Phosphatase Ammonia Troponin I NT-Pro-B Natriuret Pep Total Protein Albumin Globulin Albumin/Globulin Ratio Free T4 Free T3 pg/mL TSH 3rd Generation Venous Blood Potassium Urine Color [place] Urine Clarity Cloudy Urine pH 5.0 Ur Specific Vest 1.020 Urine Protein Negative Urine Glucose (UA) Neg Urine Ketones Negative Urine Blood Large Urine Nitrate Negative Urine Bilirubin Negative Urine Urobilinogen 4.0 Ur Leukocyte Esterase Small Urine RBC (Auto) 115 H Urine Microscopic WBC 33 H Ur Squamous Epith Cells 5 Urine Bacteria Occ H Hyaline Casts 6-10 H Ur L.pneumophila Ag 08/17/18 08/17/18 08/17/18 05:35 05:35 09:09 WBC 7.7 RBC 4.75 Hgb 13.7 D Hct 42.5 MCV 89.4 MCH 28.8 MCHC 32.3 L RDW 14.9 H Plt Count 116 L MPV 11.6 Neut % (Auto) 71.2 Lymph % (Auto) 17.1 L [place] % (Auto) 9.8 Eos % (Auto) 1.2 Baso % (Auto) 0.7 Neut # (Auto) 5.5 Lymph # (Auto) 1.3 [place] # (Auto) 0.8 Eos # (Auto) 0.1 Baso # (Auto) 0.1 PT INR APTT pO2 VBG pH VBG pCO2 VBG HCO3 VBG Total CO2 VBG O2 Sat (Calc) VBG Base Excess VBG Potassium Glucose Lactate FiO2 Crit Value Called To Crit Value Called By Crit Value Read Back Blood Gas Notified Time Sodium 148 Potassium 4.0 Chloride 125 H Carbon Dioxide 13 L Anion Gap 14 BUN 66 H Creatinine 1.9 H Est GFR ( Amer) 42 Est GFR (Non-Af Amer) 35 POC Glucose (mg/dL) 141 H Random Glucose 191 H Calcium 8.1 L Total Bilirubin AST ALT Alkaline Phosphatase Ammonia Troponin I NT-Pro-B Natriuret Pep Total Protein Albumin Globulin Albumin/Globulin Ratio Free T4 Free T3 pg/mL TSH 3rd Generation 6.76 H Venous Blood Potassium Urine Color Urine Clarity Urine pH Ur Specific Vest Urine Protein Urine Glucose (UA) Urine Ketones Urine Blood Urine Nitrate Urine Bilirubin Urine Urobilinogen Ur Leukocyte Esterase Urine RBC (Auto) Urine Microscopic WBC Ur Squamous Epith Cells Urine Bacteria Hyaline Casts Ur L.pneumophila Ag 08/17/18 08/17/18 08/18/18 14:32 14:37 08:07 WBC RBC Hgb Hct MCV MCH MCHC RDW Plt Count MPV Neut % (Auto) Lymph % (Auto) [place] % (Auto) Eos % (Auto) Baso % (Auto) Neut # (Auto) Lymph # (Auto) [place] # (Auto) Eos # (Auto) Baso # (Auto) PT INR APTT pO2 VBG pH VBG pCO2 VBG HCO3 VBG Total CO2 VBG O2 Sat (Calc) VBG Base Excess VBG Potassium Glucose Lactate FiO2 Crit Value Called To Crit Value Called By Crit Value Read Back Blood Gas Notified Time Sodium Potassium Chloride Carbon Dioxide Anion Gap BUN Creatinine Est GFR ( Amer) Est GFR (Non-Af Amer) POC Glucose (mg/dL) Random Glucose Calcium Total Bilirubin AST ALT Alkaline Phosphatase Ammonia Troponin I NT-Pro-B Natriuret Pep Total Protein Albumin Globulin Albumin/Globulin Ratio Free T4 1.49 Free T3 pg/mL 2.15 L TSH 3rd Generation Venous Blood Potassium Urine Color Urine Clarity Urine pH Ur Specific Vest Urine Protein Urine Glucose (UA) Urine Ketones Urine Blood Urine Nitrate Urine Bilirubin Urine Urobilinogen Ur Leukocyte Esterase Urine RBC (Auto) Urine Microscopic WBC Ur Squamous Epith Cells Urine Bacteria Hyaline Casts Ur L.pneumophila Ag Negative 08/18/18 15:50 WBC RBC Hgb Hct MCV MCH MCHC RDW Plt Count MPV Neut % (Auto) Lymph % (Auto) [place] % (Auto) Eos % (Auto) Baso % (Auto) Neut # (Auto) Lymph # (Auto) [place] # (Auto) Eos # (Auto) Baso # (Auto) PT INR APTT pO2 VBG pH VBG pCO2 VBG HCO3 VBG Total CO2 VBG O2 Sat (Calc) VBG Base Excess VBG Potassium Glucose Lactate FiO2 Crit Value Called To Crit Value Called By Crit Value Read Back Blood Gas Notified Time Sodium 149 H Potassium 4.4 Chloride 125 H Carbon Dioxide 16 L Anion Gap 12 BUN 60 H Creatinine 2.1 H Est GFR ( Amer) 38 Est GFR (Non-Af Amer) 31 POC Glucose (mg/dL) Random Glucose 95 Calcium 8.7 Total Bilirubin AST ALT Alkaline Phosphatase Ammonia Troponin I NT-Pro-B Natriuret Pep Total Protein Albumin Globulin Albumin/Globulin Ratio Free T4 Free T3 pg/mL TSH 3rd Generation Venous Blood Potassium Urine Color Urine Clarity Urine pH Ur Specific Vest Urine Protein Urine Glucose (UA) Urine Ketones Urine Blood Urine Nitrate Urine Bilirubin Urine Urobilinogen Ur Leukocyte Esterase Urine RBC (Auto) Urine Microscopic WBC Ur Squamous Epith Cells Urine Bacteria Hyaline Casts Ur L.pneumophila Ag Microbiology 08/16/18 19:58 Blood-Venous Blood Culture - Preliminary NO GROWTH AFTER 48 HOURS 08/16/18 19:02 Blood-Venous Blood Culture - Preliminary NO GROWTH AFTER 48 HOURS 08/16/18 21:14 Urine,Clean Catch Urine Culture - Final No Growth (<1,000 CFU/ML) Accession No. : [id number] Patient Name / ID : MARY BEACH / [id number] Exam Date : 08/17/2018 07:28:03 ( Approved ) Study Comment : Sex / Age : M / [id number] Creator : Scot Cruz MD Dictator : Scot Cruz MD Driver Examiner : Laboratory Helper : Scot Cruz MD Approver2 : Report Date : 08/17/2018 08:14:56 My Comment : Date of service: 08/17/2018 HISTORY: Follow up infiltrate at right lung base COMPARISON: Frontal chest radiograph 08/16/2018. FINDINGS: LUNGS: Pulmonary vascular congestion pattern appears increased with mid to inferior pulmonary airspace disease not excluded once again. Minimal pleural effusions are not excluded bilaterally. No pneumothorax bilaterally. Cardiomediastinal silhouette is stable. PLEURA: As above. CARDIOVASCULAR: As above. OSSEOUS STRUCTURES: No significant abnormalities. VISUALIZED UPPER ABDOMEN: Normal. OTHER FINDINGS: None. IMPRESSION: Increased pulmonary vascular congestion with trace pleural effusions question bilaterally. Underlying airspace disease not excluded at the mid to inferior pulmonary lung zones mildly. Assessment and Plan (1) Acute renal failure Status: Acute (2) Weakness Status: Acute (3) Hypothermia Status: Acute (4) Hypoventilation Status: Acute - Assessment and Plan (Free Text) Assessment: A/P- 73 year old [place] from [place] admitted with weakness, poor oral intake and found to be in Acute renal insufficiency and hypothermi hypotensive. Pt.is afebrile and has normal wbc CXR report - pulmonary vascular congestion and trace pleural effusion. blood cx- neg x 2 TTE- as per report read by tele grain roaster- ? tricuspid valve vegetation plan- check 2 more blood cx. in light of this ? TR veg advise to add IV vanco pending further results. keep vanco trough <15. advise to get cardiology evaluation continue empiric IV zosyn as well since pt. was recently d/c from hospital and to cover for Hospital acquired pathogens. advise for primary team to manage I and O closely as pt. seems to be in pulmonary congestion . advise podiatry evaluation of necrotic plantar toes. may need vascular evaluation as well. all above d/w at length.
--- NOTE | 2018-08-19 11:12 | CP.PCM.PN ---
Subjective - Date & Time of Evaluation Date of Evaluation: 08/18/18 Time of Evaluation: 16:00 Objective - Vital Signs/Intake and Output Vital Signs (last 24 hours): Temp Pulse Resp BP Pulse Ox 97.6 F 70 18 94/60 L 96 08/19/18 08:07 08/19/18 09:00 08/19/18 08:07 08/19/18 08:07 08/19/18 08:07 Intake and Output: 08/19/18 08/19/18 06:59 18:59 Intake Total 1300 Output Total 200 Balance 1100 - Medications Medications: Current Medications Albuterol/Ipratropium (Duoneb 3 Mg/0.5 Mg (3 Ml) Ud) 3 ml INH RQ6 PRN PRN Reason: Shortness of Breath Last Admin: 08/19/18 00:24 Dose: 3 ml Heparin Sodium (Porcine) (Heparin) 5,000 units SC Q8 JAMIE; Protocol Last Admin: 08/19/18 09:20 Dose: 5,000 units Folic Acid 1 mg/ Sodium (Chloride) 100.2 mls @ 60 mls/hr IVPB DAILY JAMIE Last Admin: 08/19/18 09:19 Dose: 60 mls/hr Azithromycin 500 mg/ Sodium (Chloride) 250 mls @ 250 mls/hr IVPB DAILY JAMIE; Protocol Last Admin: 08/18/18 08:13 Dose: 250 mls/hr Piperacillin Sod/Tazobactam (Sod 2.25 gm/ Sodium Chloride) 100 mls @ 100 mls/hr IVPB Q8 JAMIE; Protocol Last Admin: 08/19/18 10:41 Dose: 100 mls/hr Thiamine HCl (Vitamin B1 Inj) 100 mg IV DAILY JAMIE Last Admin: 08/19/18 09:22 Dose: 100 mg - Labs Labs: 08/17/18 05:35 08/18/18 15:50 PT 12.7 Seconds (9.8-13.1) 08/16/18 18:57 INR 1.1 08/16/18 18:57 APTT 34.6 Seconds (25.6-37.1) 08/16/18 18:57
[2018-08-19] MEDS: Azithromycin 500 MG in Sodium Chloride 0.9% 250 ML IVPB SCH (12:40)
[2018-08-19 13:57] LABS: BASO # 0.1 K/uL (0.0-0.2); BASO % 0.9 % (0.0-2.0); EOS # 0.1 K/uL (0.0-0.7); EOS % 1.1 % (0.0-4.0); HEMOGLOBIN 14.7 g/dL (12.0-18.0); LYMPH # 1.3 K/uL (1.0-4.3); LYMPH % 12.5 % (20.0-40.0); MEAN CELL VOLUME 88.3 fl (80.0-94.0); MEAN CORPUSCULAR HEMOGLOBIN 29.5 pg (27.0-31.0); MEAN CORPUSCULAR HGB CONC 33.5 g/dL (33.0-37.0); MEAN PLATELET VOLUME 11.5 fl (7.2-11.7); NEUT # 7.7 K/uL (1.8-7.0); NEUT % 75.5 % (50.0-75.0); NRBC % 0.1 % (0.0-0.0); RBC 4.99 Mil/uL (4.40-5.90); RED CELL DISTRIBUTION WIDTH 15.9 % (11.5-14.5); WHITE BLOOD COUNT 10.2 K/uL (4.8-10.8)
[2018-08-19 14:14] LABS: ALB/GLOB RATIO 0.6 (1.0-2.1); ALBUMIN 2.4 g/dL (3.5-5.0); CALCIUM 8.5 mg/dL (8.4-10.2)
[2018-08-19] MEDS ORDERED: Dextrose 5%/0.45% NS 1,000 ML IV SCH (14:30)
--- NOTE | 2018-08-19 16:14 | CP.PCM.CON ---
History of Present Illness - History of Present Illness History of Present Illness: Consultation requested for evaluation of a vegetation on the valve history of present illness patient presented on 08/16 with chief complaint of hypotension as per the admitting H&P 73-year-old male brought in from [facility] because of elevated BUN and creatinine with poor intake and feeling generalized fatigue and lethargic patient was admitted to [facility] from [facility] 12/26/2026 with diagnosis of acute kidney injury AMS and alcohol abuse on discharge patient's BUN and creatinine was 27 and 1.0 with a hemoglobin of 14.9 in the emergency room patient was arousable but severely lethargic with minimal grunting was somewhat hypotensive with systolic in the 40s and then subsequently down to 80s and 60s patient was diagnosed with acute kidney injury dehydration and admitted with for evaluation of possible sepsis and renal failure he was given IV fluid hydration with initiated on low-dose levo fed ID was consulted by Dr. arnel amaya who had further evaluated the patient with echocardiogram echocardiogram was done which showed that patient has possible vegetation for which we are being called to evaluate and treat the patient further. X-ray showed increased pulmonary congestion with trace effusion Review of Systems - Review of Systems Systems not reviewed;Unavailable: Acuity of Condition - Constitutional Constitutional: As Per HPI - EENT Eyes: As Per HPI Ears: As Per HPI Nose/Mouth/Throat: As Per HPI - Cardiovascular Cardiovascular: As Per HPI - Respiratory Respiratory: As Per HPI - Gastrointestinal Gastrointestinal: As Per HPI - Genitourinary Genitourinary: As Per HPI - Reproductive: Male Reproductive:Male: As Per HPI - Musculoskeletal Musculoskeletal: As Per HPI - Integumentary Integumentary: As Per HPI - Neurological Neurological: As Per HPI - Psychiatric Psychiatric: As Per HPI - Endocrine Endocrine: As Per HPI - Hematologic/Lymphatic Hematologic: As Per HPI Past Patient History - Infectious Disease Hx of Infectious Diseases: None - Past Medical History & Family History Past Medical History?: Yes - Past Social History Smoking Status: Unknown If Ever Smoked Chewing Tobacco Use: No Cigar Use: No Alcohol: None Drugs: Denies Home Situation {Lives}: Intermediate - CARDIAC Hx Cardiac Disorders: No - PULMONARY Hx Respiratory Disorders: No - NEUROLOGICAL Hx Neurological Disorder: Yes - HEENT Hx HEENT Problems: No - RENAL Hx Renal Failure: Yes Other/Comment: Acute Kidney injury - HEMATOLOGICAL/ONCOLOGICAL Hx Blood Disorders: No - INTEGUMENTARY Hx Dermatological Problems: No - MUSCULOSKELETAL/RHEUMATOLOGICAL Hx Musculoskeletal Disorders: No - GASTROINTESTINAL Hx Gastrointestinal Disorders: No - GENITOURINARY/GYNECOLOGICAL Hx Genitourinary Disorders: No - PSYCHIATRIC Hx Psychophysiologic Disorder: No - SURGICAL HISTORY Hx Surgeries: No (Unknown) - ANESTHESIA Hx Anesthesia: No (Unknown) Meds Allergies/Adverse Reactions: Allergies Allergy/AdvReac Type Severity Reaction Status Date / Time No Known Allergies Allergy Verified 08/06/18 11:02 - Medications Medications: Current Medications Albuterol/Ipratropium (Duoneb 3 Mg/0.5 Mg (3 Ml) Ud) 3 ml INH RQ6 PRN PRN Reason: Shortness of Breath Last Admin: 08/19/18 00:24 Dose: 3 ml Heparin Sodium (Porcine) (Heparin) 5,000 units SC Q8 JAMIE; Protocol Last Admin: 08/19/18 16:06 Dose: 5,000 units Folic Acid 1 mg/ Sodium (Chloride) 100.2 mls @ 60 mls/hr IVPB DAILY [facility] Last Admin: 08/19/18 09:19 Dose: 60 mls/hr Piperacillin Sod/Tazobactam (Sod 2.25 gm/ Sodium Chloride) 100 mls @ 100 mls/hr IVPB Q8 JAMIE; Protocol Last Admin: 08/19/18 16:05 Dose: 100 mls/hr Vancomycin HCl 750 mg/ Sodium (Chloride) 250 mls @ 166.667 mls/hr IVPB QOTHERDAY JAMIE; Protocol Dextrose/Sodium Chloride (Dextrose 5%/0.45% Ns 1000 Ml) 1,000 mls @ 50 mls/hr IV .Q20H [facility] Stop: 08/20/18 14:24 Last Admin: 08/19/18 15:27 Dose: 50 mls/hr Thiamine HCl (Vitamin B1 Inj) 100 mg IV DAILY [facility] Last Admin: 08/19/18 09:22 Dose: 100 mg Physical Exam - Constitutional Appears: Confused - Head Exam Head Exam: ATRAUMATIC, NORMAL INSPECTION, NORMOCEPHALIC - Eye Exam Eye Exam: EOMI, Normal appearance, PERRL Pupil Exam: NORMAL ACCOMODATION, PERRL - ENT Exam ENT Exam: Mucous Membranes Moist, Normal Exam - Neck Exam Neck exam: Positive for: Normal Inspection - Respiratory Exam Respiratory Exam: Clear to Auscultation Bilateral, NORMAL BREATHING PATTERN - Cardiovascular Exam Cardiovascular Exam: REGULAR RHYTHM, RRR, +S1, +S2, Systolic Murmur - GI/Abdominal Exam GI & Abdominal Exam: Normal Bowel Sounds, Soft. absent: Tenderness - Extremities Exam Extremities exam: Positive for: normal inspection - Back Exam Back exam: NORMAL INSPECTION - Neurological Exam Neurological exam: Altered, CN II-XII Intact - Psychiatric Exam Psychiatric exam: Normal Affect, Normal Mood - Skin Skin Exam: Dry, Intact, Normal Color, Warm Results - Vital Signs Recent Vital Signs: Last Vital Signs Temp 97.5 F L 08/19/18 15:52 Pulse 71 08/19/18 15:52 Resp 20 08/19/18 15:52 BP 96/62 L 08/19/18 15:52 Pulse Ox 96 08/19/18 15:52 - Labs Result Diagrams: 08/20/18 13:11 08/20/18 13:11 Labs: Laboratory Results - last 24 hr 08/18/18 08/19/18 08/19/18 15:50 12:52 12:52 WBC RBC Hgb Hct MCV MCH MCHC RDW Plt Count MPV Neut % (Auto) Lymph % (Auto) [place] % (Auto) Eos % (Auto) Baso % (Auto) Neut # (Auto) Lymph # (Auto) [place] # (Auto) Eos # (Auto) Baso # (Auto) Sodium 149 H Potassium 4.4 Chloride 125 H Carbon Dioxide 16 L Anion Gap 12 BUN 60 H Creatinine 2.1 H Est GFR ( Amer) 38 Est GFR (Non-Af Amer) 31 Random Glucose 95 Calcium 8.7 Phosphorus Magnesium Total Bilirubin AST ALT Alkaline Phosphatase Total Protein Albumin Globulin Albumin/Globulin Ratio Alpha Fetoprotein 63.8 H Carcinoembryonic Ag 4.2 H 08/19/18 08/19/18 13:34 13:34 WBC 10.2 RBC 4.99 Hgb 14.7 Hct 44.1 MCV 88.3 MCH 29.5 MCHC 33.5 RDW 15.9 H Plt Count 107 L MPV 11.5 Neut % (Auto) 75.5 H Lymph % (Auto) 12.5 L [place] % (Auto) 10.0 Eos % (Auto) 1.1 Baso % (Auto) 0.9 Neut # (Auto) 7.7 H Lymph # (Auto) 1.3 [place] # (Auto) 1.0 H Eos # (Auto) 0.1 Baso # (Auto) 0.1 Sodium 152 H Potassium 4.0 Chloride 129 H Carbon Dioxide 14 L Anion Gap 13 BUN 60 H Creatinine 2.1 H Est GFR ( Amer) 38 Est GFR (Non-Af Amer) 31 Random Glucose 98 Calcium 8.5 Phosphorus 5.4 H Magnesium 2.3 Total Bilirubin 1.4 H AST 74 H D ALT 44 Alkaline Phosphatase 203 H Total Protein 6.8 Albumin 2.4 L Globulin 4.4 H Albumin/Globulin Ratio 0.6 L Alpha Fetoprotein Carcinoembryonic Ag Assessment & Plan (1) Endocarditis Assessment and Plan: MARION once clinically stable Status: Acute (2) Acute renal failure Status: Acute (3) Hypoventilation Status: Acute (4) Altered mental status Status: Acute Priority: High (5) ETOH abuse Status: Acute Priority: High
--- NOTE | 2018-08-19 17:22 | CP.PCM.CON ---
History of Present Illness - History of Present Illness History of Present Illness: Podiatry consult note for attending Dr. Rivera; 73 years old male patient with PMH of ISAURO and AMS seen and evaluated at the bedside for elongated, thickened, discolored, horn shaped and dystrophic toe nails. Patient is sitting in his bed, his respiration looks distressed and on Oxygen mask. Patient is poor historian. All the patient data got through his chart and his nurse. As per his nurse patient toe nails are elongated and d ystrophic and he can't take care of it. As per chart patient didn't have overnight F/N/V or C. PMH: ISAURO; AMS PSH: Unknown Surgical hx because of patient's poor communication. Allergies: NKDA Social Hx: Alcohol abuse; No illegal drug use; No smoking ; reside at [facility] Review of Systems - Review of Systems Review of Systems: As Per HPI Past Patient History - Infectious Disease Hx of Infectious Diseases: None - Past Medical History & Family History Past Medical History?: Yes - Past Social History Smoking Status: Unknown If Ever Smoked Chewing Tobacco Use: No Cigar Use: No Alcohol: None Drugs: Denies Home Situation {Lives}: Detention - CARDIAC Hx Cardiac Disorders: No - PULMONARY Hx Respiratory Disorders: No - NEUROLOGICAL Hx Neurological Disorder: Yes - HEENT Hx HEENT Problems: No - RENAL Hx Renal Failure: Yes Other/Comment: Acute Kidney injury - HEMATOLOGICAL/ONCOLOGICAL Hx Blood Disorders: No - INTEGUMENTARY Hx Dermatological Problems: No - MUSCULOSKELETAL/RHEUMATOLOGICAL Hx Musculoskeletal Disorders: No - GASTROINTESTINAL Hx Gastrointestinal Disorders: No - GENITOURINARY/GYNECOLOGICAL Hx Genitourinary Disorders: No - PSYCHIATRIC Hx Psychophysiologic Disorder: No - SURGICAL HISTORY Hx Surgeries: No (Unknown) - ANESTHESIA Hx Anesthesia: No (Unknown) Meds Allergies/Adverse Reactions: Allergies Allergy/AdvReac Type Severity Reaction Status Date / Time No Known Allergies Allergy Verified 08/06/18 11:02 - Medications Medications: Current Medications Albuterol/Ipratropium (Duoneb 3 Mg/0.5 Mg (3 Ml) Ud) 3 ml INH RQ6 PRN PRN Reason: Shortness of Breath Last Admin: 08/19/18 00:24 Dose: 3 ml Heparin Sodium (Porcine) (Heparin) 5,000 units SC Q8 JAMIE; Protocol Last Admin: 08/19/18 16:06 Dose: 5,000 units Folic Acid 1 mg/ Sodium (Chloride) 100.2 mls @ 60 mls/hr IVPB DAILY [facility] Last Admin: 08/19/18 09:19 Dose: 60 mls/hr Piperacillin Sod/Tazobactam (Sod 2.25 gm/ Sodium Chloride) 100 mls @ 100 mls/hr IVPB Q8 JAMIE; Protocol Last Admin: 08/19/18 16:05 Dose: 100 mls/hr Vancomycin HCl 750 mg/ Sodium (Chloride) 250 mls @ 166.667 mls/hr IVPB QOTHERDAY JAMIE; Protocol Dextrose/Sodium Chloride (Dextrose 5%/0.45% Ns 1000 Ml) 1,000 mls @ 50 mls/hr IV .Q20H [facility] Stop: 08/20/18 14:24 Last Admin: 08/19/18 15:27 Dose: 50 mls/hr Thiamine HCl (Vitamin B1 Inj) 100 mg IV DAILY [facility] Last Admin: 08/19/18 09:22 Dose: 100 mg Physical Exam - Head Exam Head Exam: ATRAUMATIC ( ), NORMOCEPHALIC - Extremities Exam Additional comments: LE focused exam: Vasc: DP/PT a/4 b/l. Cap refill < 3 sec in all digits. Temp gradient warm to cool. No edema. Neuro: Couldn't be assessed. Patient is incorporative. Derm: Toe nails elongated, dystrophic, Horn shaped and discolored and thickened X 10. No open lesions. No clinical signs of active bacterial infections. dry, scaly, annular lesions noted in the plantar aspect of both feet. MSK: Muscle power couldn't be assessed. Patient is incorporative.. Hammering of the toes 2-5 b/l. Diffuse arthritic changes in all the foot joints b/l. - Neurological Exam Neurological exam: Alert Results - Vital Signs Recent Vital Signs: Last Vital Signs Temp 97.5 F L 08/19/18 15:52 Pulse 71 08/19/18 15:52 Resp 20 08/19/18 15:52 BP 96/62 L 08/19/18 15:52 Pulse Ox 96 08/19/18 15:52 - Labs Result Diagrams: 08/19/18 13:34 08/19/18 13:34 Labs: Laboratory Results - last 24 hr 1008/19/18 08/19/18 12:52 12:52 13:34 WBC RBC Hgb Hct MCV MCH MCHC RDW Plt Count MPV Neut % (Auto) Lymph % (Auto) [place] % (Auto) Eos % (Auto) Baso % (Auto) Neut # (Auto) Lymph # (Auto) [place] # (Auto) Eos # (Auto) Baso # (Auto) Sodium 152 H Potassium 4.0 Chloride 129 H Carbon Dioxide 14 L Anion Gap 13 BUN 60 H Creatinine 2.1 H Est GFR ( Amer) 38 Est GFR (Non-Af Amer) 31 Random Glucose 98 Calcium 8.5 Phosphorus 5.4 H Magnesium 2.3 Total Bilirubin 1.4 H AST 74 H D ALT 44 Alkaline Phosphatase 203 H Total Protein 6.8 Albumin 2.4 L Globulin 4.4 H Albumin/Globulin Ratio 0.6 L Alpha Fetoprotein 63.8 H Carcinoembryonic Ag 4.2 H 08/19/18 13:34 WBC 10.2 RBC 4.99 Hgb 14.7 Hct 44.1 MCV 88.3 MCH 29.5 MCHC 33.5 RDW 15.9 H Plt Count 107 L MPV 11.5 Neut % (Auto) 75.5 H Lymph % (Auto) 12.5 L [place] % (Auto) 10.0 Eos % (Auto) 1.1 Baso % (Auto) 0.9 Neut # (Auto) 7.7 H Lymph # (Auto) 1.3 [place] # (Auto) 1.0 H Eos # (Auto) 0.1 Baso # (Auto) 0.1 Sodium Potassium Chloride Carbon Dioxide Anion Gap BUN Creatinine Est GFR ( Amer) Est GFR (Non-Af Amer) Random Glucose Calcium Phosphorus Magnesium Total Bilirubin AST ALT Alkaline Phosphatase Total Protein Albumin Globulin Albumin/Globulin Ratio Alpha Fetoprotein Carcinoembryonic Ag Assessment & Plan - Assessment and Plan (Free Text) Assessment: 73 y/o M patient seen and evaluated in the bedside for elongated, horn shapped, mycotic toe nails Plan: Patient seen and evaluated at the bedside. Plan discussed with attending Dr. Rivera Charts, labs, and vitals reviewed; Afebrile, No leukocytosis Toe nails debrided X 10. 2 superficial spots of blood expressed from the tip of the 3rd and 4th toes on the right side. Bleeding spots cleaned using alcohol swap. EtOH applied. Patient tolerated the nail clipping well. Thank you for consulting podiatry service. - Date & Time Date: 08/19/18 Time: 17:19
--- NOTE | 2018-08-20 00:56 | CP.PCM.PN ---
Subjective - Date & Time of Evaluation Date of Evaluation: 08/19/18 Time of Evaluation: 16:35 Objective - Vital Signs/Intake and Output Vital Signs (last 24 hours): Temp Pulse Resp BP Pulse Ox 98.9 F 68 16 99/54 L 98 08/19/18 23:56 08/19/18 23:56 08/19/18 23:56 08/19/18 23:56 08/19/18 23:56 Intake and Output: 08/19/18 08/20/18 18:59 06:59 Intake Total 1410 Output Total 600 Balance 810 - Medications Medications: Current Medications Albuterol/Ipratropium (Duoneb 3 Mg/0.5 Mg (3 Ml) Ud) 3 ml INH RQ6 PRN PRN Reason: Shortness of Breath Last Admin: 08/19/18 00:24 Dose: 3 ml Heparin Sodium (Porcine) (Heparin) 5,000 units SC Q8 JAMIE; Protocol Last Admin: 08/20/18 00:00 Dose: 5,000 units Folic Acid 1 mg/ Sodium (Chloride) 100.2 mls @ 60 mls/hr IVPB DAILY [facility] Last Admin: 08/19/18 09:19 Dose: 60 mls/hr Piperacillin Sod/Tazobactam (Sod 2.25 gm/ Sodium Chloride) 100 mls @ 100 mls/hr IVPB Q8 JAMIE; Protocol Last Admin: 08/20/18 00:00 Dose: 100 mls/hr Vancomycin HCl 750 mg/ Sodium (Chloride) 250 mls @ 166.667 mls/hr IVPB QOTHERDAY [facility]; Protocol Dextrose/Sodium Chloride (Dextrose 5%/0.45% Ns 1000 Ml) 1,000 mls @ 50 mls/hr IV .Q20H [facility] Stop: 08/20/18 14:24 Last Admin: 08/19/18 15:27 Dose: 50 mls/hr Thiamine HCl (Vitamin B1 Inj) 100 mg IV DAILY [facility] Last Admin: 08/19/18 09:22 Dose: 100 mg - Labs Labs: 08/19/18 13:34 08/19/18 13:34 PT 12.7 Seconds (9.8-13.1) 08/16/18 18:57 INR 1.1 08/16/18 18:57 APTT 34.6 Seconds (25.6-37.1) 08/16/18 18:57
[2018-08-20] MEDS: Bacitracin 500 Units/gm Oint Foilpak UD TOP SCH ×2 (08:40→16:17)
[2018-08-20] MEDS: Thiamine 100 mg/ml Inj IV SCH (08:45)
--- NOTE | 2018-08-20 10:25 | CP.PCM.PN ---
Subjective - Date & Time of Evaluation Date of Evaluation: 08/20/18 Time of Evaluation: 10:25 - Subjective Subjective: ID Note- Pt. seen and examined today. awake and more alert but has baseline dementia. remains afebrile Objective - Vital Signs/Intake and Output Vital Signs (last 24 hours): Temp Pulse Resp BP Pulse Ox 97.1 F L 66 20 89/58 L 100 08/20/18 08:30 08/20/18 08:30 08/20/18 08:30 08/20/18 08:30 08/20/18 08:30 - Medications Medications: Current Medications Albuterol/Ipratropium (Duoneb 3 Mg/0.5 Mg (3 Ml) Ud) 3 ml INH RQ6 PRN PRN Reason: Shortness of Breath Last Admin: 08/19/18 00:24 Dose: 3 ml Bacitracin (Bacitracin) 1 ea TOP BID JAMIE Last Admin: 08/20/18 08:40 Dose: 1 ea Heparin Sodium (Porcine) (Heparin) 5,000 units SC Q8 JAMIE; Protocol Last Admin: 08/20/18 00:00 Dose: 5,000 units Folic Acid 1 mg/ Sodium (Chloride) 100.2 mls @ 60 mls/hr IVPB DAILY [facility] Last Admin: 08/20/18 08:41 Dose: 60 mls/hr Piperacillin Sod/Tazobactam (Sod 2.25 gm/ Sodium Chloride) 100 mls @ 100 mls/hr IVPB Q8 [facility]; Protocol Last Admin: 08/20/18 00:00 Dose: 100 mls/hr Vancomycin HCl 750 mg/ Sodium (Chloride) 250 mls @ 166.667 mls/hr IVPB QOTHERDAY [facility]; Protocol Dextrose/Sodium Chloride (Dextrose 5%/0.45% Ns 1000 Ml) 1,000 mls @ 50 mls/hr IV .Q20H [facility] Stop: 08/20/18 14:24 Last Admin: 08/19/18 15:27 Dose: 50 mls/hr Thiamine HCl (Vitamin B1 Inj) 100 mg IV DAILY [facility] Last Admin: 08/20/18 08:45 Dose: 100 mg - Labs Labs: - Additional Findings Additional findings: - Constitutional Appears: Chronically Ill - Head Exam Head Exam: ATRAUMATIC - ENT Exam Additional comments: dry oral mucosa - Neck Exam Neck exam: Positive for: Full Rom - Respiratory Exam Respiratory Exam: NORMAL BREATHING PATTERN Additional comments: crackles bibasilar - Cardiovascular Exam Cardiovascular Exam: RRR, +S1, +S2 - GI/Abdominal Exam GI & Abdominal Exam: Distended Additional comments: hypoactive BS NT - Extremities Exam Additional comments: No edema b/l LE plantar aspect of b/l 2nd-4th digit and in between toe region with eschar and necrosis no malodo - Neurological Exam Additional comments: more awake today Laboratory Results - last 72 hr 08/17/18 08/17/18 08/18/18 14:32 14:37 08:07 WBC RBC Hgb Hct MCV MCH MCHC RDW Plt Count MPV Neut % (Auto) Lymph % (Auto) [place] % (Auto) Eos % (Auto) Baso % (Auto) Neut # (Auto) Lymph # (Auto) [place] # (Auto) Eos # (Auto) Baso # (Auto) pCO2 pO2 HCO3 ABG pH ABG Total CO2 ABG O2 Saturation ABG O2 Content ABG Base Excess ABG Hemoglobin ABG Carboxyhemoglobin POC ABG HHb (Measured) ABG Methemoglobin ABG O2 Capacity [place] Test A-a O2 Difference Hgb O2 Saturation FiO2 Sodium Potassium Chloride Carbon Dioxide Anion Gap BUN Creatinine Est GFR ( Amer) Est GFR (Non-Af Amer) Random Glucose Lactic Acid Calcium Phosphorus Magnesium Total Bilirubin AST ALT Alkaline Phosphatase Total Protein Albumin Globulin Albumin/Globulin Ratio Alpha Fetoprotein Carcinoembryonic Ag CA 19-9 Antigen Free PSA % Free PSA Total PSA Free T3 pg/mL 2.15 L Ur L.pneumophila Ag Negative Mycoplasma pneumon IgG 1.05 H Mycoplasma pneumon IgM 447 08/18/18 08/19/18 08/19/18 15:50 12:52 12:52 WBC RBC Hgb Hct MCV MCH MCHC RDW Plt Count MPV Neut % (Auto) Lymph % (Auto) [place] % (Auto) Eos % (Auto) Baso % (Auto) Neut # (Auto) Lymph # (Auto) [place] # (Auto) Eos # (Auto) Baso # (Auto) pCO2 pO2 HCO3 ABG pH ABG Total CO2 ABG O2 Saturation ABG O2 Content ABG Base Excess ABG Hemoglobin ABG Carboxyhemoglobin POC ABG HHb (Measured) ABG Methemoglobin ABG O2 Capacity [place] Test A-a O2 Difference Hgb O2 Saturation FiO2 Sodium 149 H Potassium 4.4 Chloride 125 H Carbon Dioxide 16 L Anion Gap 12 BUN 60 H Creatinine 2.1 H Est GFR ( Amer) 38 Est GFR (Non-Af Amer) 31 Random Glucose 95 Lactic Acid Calcium 8.7 Phosphorus Magnesium Total Bilirubin AST ALT Alkaline Phosphatase Total Protein Albumin Globulin Albumin/Globulin Ratio Alpha Fetoprotein 63.8 H Carcinoembryonic Ag CA 19-9 Antigen Free PSA 2.0 % Free PSA 29 Total PSA 6.9 H Free T3 pg/mL Ur L.pneumophila Ag Mycoplasma pneumon IgG Mycoplasma pneumon IgM 08/19/18 08/19/18 08/19/18 12:52 13:34 13:34 WBC 10.2 RBC 4.99 Hgb 14.7 Hct 44.1 MCV 88.3 MCH 29.5 MCHC 33.5 RDW 15.9 H Plt Count 107 L MPV 11.5 Neut % (Auto) 75.5 H Lymph % (Auto) 12.5 L [place] % (Auto) 10.0 Eos % (Auto) 1.1 Baso % (Auto) 0.9 Neut # (Auto) 7.7 H Lymph # (Auto) 1.3 [place] # (Auto) 1.0 H Eos # (Auto) 0.1 Baso # (Auto) 0.1 pCO2 pO2 HCO3 ABG pH ABG Total CO2 ABG O2 Saturation ABG O2 Content ABG Base Excess ABG Hemoglobin ABG Carboxyhemoglobin POC ABG HHb (Measured) ABG Methemoglobin ABG O2 Capacity [place] Test A-a O2 Difference Hgb O2 Saturation FiO2 Sodium 152 H Potassium 4.0 Chloride 129 H Carbon Dioxide 14 L Anion Gap 13 BUN 60 H Creatinine 2.1 H Est GFR ( Amer) 38 Est GFR (Non-Af Amer) 31 Random Glucose 98 Lactic Acid Calcium 8.5 Phosphorus 5.4 H Magnesium 2.3 Total Bilirubin 1.4 H AST 74 H D ALT 44 Alkaline Phosphatase 203 H Total Protein 6.8 Albumin 2.4 L Globulin 4.4 H Albumin/Globulin Ratio 0.6 L Alpha Fetoprotein Carcinoembryonic Ag 4.2 H CA 19-9 Antigen 1120 H Free PSA % Free PSA Total PSA Free T3 pg/mL Ur L.pneumophila Ag Mycoplasma pneumon IgG Mycoplasma pneumon IgM 08/20/18 08/20/18 08/20/18 12:05 12:14 13:11 WBC 9.8 RBC 4.84 Hgb 14.2 Hct 42.6 MCV 88.0 MCH 29.3 MCHC 33.3 RDW 15.8 H Plt Count 99 L MPV Neut % (Auto) Lymph % (Auto) [place] % (Auto) Eos % (Auto) Baso % (Auto) Neut # (Auto) Lymph # (Auto) [place] # (Auto) Eos # (Auto) Baso # (Auto) pCO2 22 L pO2 71 L HCO3 17.1 L ABG pH 7.38 ABG Total CO2 13.7 L ABG O2 Saturation 97.6 ABG O2 Content 18.8 ABG Base Excess -9.9 L ABG Hemoglobin 14.3 ABG Carboxyhemoglobin 2.6 H POC ABG HHb (Measured) 2.3 ABG Methemoglobin 1.6 ABG O2 Capacity 19.3 Pedro Test Yes A-a O2 Difference 101.0 Hgb O2 Saturation 93.5 L FiO2 28.0 Sodium Potassium Chloride Carbon Dioxide Anion Gap BUN Creatinine Est GFR ( Amer) Est GFR (Non-Af Amer) Random Glucose Lactic Acid 1.4 Calcium Phosphorus Magnesium Total Bilirubin AST ALT Alkaline Phosphatase Total Protein Albumin Globulin Albumin/Globulin Ratio Alpha Fetoprotein Carcinoembryonic Ag CA 19-9 Antigen Free PSA % Free PSA Total PSA Free T3 pg/mL Ur L.pneumophila Ag Mycoplasma pneumon IgG Mycoplasma pneumon IgM 08/20/18 13:11 WBC RBC Hgb Hct MCV MCH MCHC RDW Plt Count MPV Neut % (Auto) Lymph % (Auto) [place] % (Auto) Eos % (Auto) Baso % (Auto) Neut # (Auto) Lymph # (Auto) [place] # (Auto) Eos # (Auto) Baso # (Auto) pCO2 pO2 HCO3 ABG pH ABG Total CO2 ABG O2 Saturation ABG O2 Content ABG Base Excess ABG Hemoglobin ABG Carboxyhemoglobin POC ABG HHb (Measured) ABG Methemoglobin ABG O2 Capacity [place] Test A-a O2 Difference Hgb O2 Saturation FiO2 Sodium 152 H Potassium 3.6 Chloride 128 H Carbon Dioxide 15 L Anion Gap 13 BUN 58 H Creatinine 2.2 H Est GFR ( Amer) 36 Est GFR (Non-Af Amer) 29 Random Glucose 100 Lactic Acid Calcium 8.4 Phosphorus Magnesium Total Bilirubin AST ALT Alkaline Phosphatase Total Protein Albumin Globulin Albumin/Globulin Ratio Alpha Fetoprotein Carcinoembryonic Ag CA 19-9 Antigen Free PSA % Free PSA Total PSA Free T3 pg/mL Ur L.pneumophila Ag Mycoplasma pneumon IgG Mycoplasma pneumon IgM Microbiology 08/16/18 19:02 Blood-Venous Blood Culture - Preliminary NO GROWTH AFTER 4 DAYS 08/19/18 11:40 Blood-Venous Blood Culture - Preliminary NO GROWTH AFTER 24 HOURS 08/19/18 11:40 Blood-Venous Blood Culture - Preliminary NO GROWTH AFTER 24 HOURS 08/16/18 19:58 Blood-Venous Blood Culture - Preliminary NO GROWTH AFTER 3 DAYS 08/16/18 21:14 Urine,Clean Catch Urine Culture - Final No Growth (<1,000 CFU/ML) Assessment and Plan (1) Acute renal failure Status: Acute (2) Weakness Status: Acute (3) Hypothermia Status: Acute (4) Hypoventilation Status: Acute - Assessment and Plan (Free Text) Assessment: A/P- 73 year old male from [place] admitted with weakness, poor oral intake and found to be in Acute renal insufficiency and hypothermi hypotensive. Pt.is afebrile and has normal wbc CXR report - pulmonary vascular congestion and trace pleural effusion. blood cx- neg x 4 TTE- as per report read by tele garment worker- ? tricuspid valve vegetation plan- in light of this ? TR veg advise to continue with IV vanco pending further results. day #2. keep vanco trough <15. continue empiric IV zosyn as well since pt. was recently d/c from hospital and to cover for Hospital acquired pathogens. podiatry and cardiology f/u .
[2018-08-20 12:13] LABS: ABG ALLEN TEST YES; ARTERIAL BLOOD GAS HCO3 17.1 mmol/L (21-28); ARTERIAL BLOOD GAS HEMOGLOBIN 14.3 g/dL (11.7-17.4); ARTERIAL BLOOD GAS O2 CAPACITY 19.3 mL/dL (16-24); ARTERIAL BLOOD GAS O2 CONTENT 18.8 ML/dL (15-23); ARTERIAL BLOOD GAS O2 SAT 97.6 % (95-98); ARTERIAL BLOOD GAS PCO2 22 mm/Hg (35-45); ARTERIAL BLOOD GAS PH 7.38 (7.35-7.45); ARTERIAL BLOOD GAS PO2 71 mm/Hg (80-100); ARTERIAL BLOOD GAS TCO2 13.7 mmol/L (22-28)
[2018-08-20 13:15] LABS: HEMOGLOBIN 14.2 g/dL (12.0-18.0); MEAN CORPUSCULAR HEMOGLOBIN 29.3 pg (27.0-31.0); MEAN CORPUSCULAR HGB CONC 33.3 g/dL (33.0-37.0); RBC 4.84 Mil/uL (4.40-5.90); RED CELL DISTRIBUTION WIDTH 15.8 % (11.5-14.5); WHITE BLOOD COUNT 9.8 K/uL (4.8-10.8)
[2018-08-20 13:32] LABS: CALCIUM 8.4 mg/dL (8.4-10.2)
[2018-08-20 13:34] LABS: TOTAL PSA 6.9 ng/mL (< or = 4.0)
--- NOTE | 2018-08-20 16:30 | CP.PCM.PN ---
Subjective - Date & Time of Evaluation Date of Evaluation: 08/20/18 Time of Evaluation: 16:29 - Subjective Subjective: pt confused and deleriuos labs c/w metabolic acidosis Objective - Vital Signs/Intake and Output Vital Signs (last 24 hours): Temp Pulse Resp BP Pulse Ox 97.8 F 63 20 90/58 L 100 08/20/18 15:42 08/20/18 15:42 08/20/18 15:42 08/20/18 15:42 08/20/18 15:42 - Medications Medications: Current Medications Albuterol/Ipratropium (Duoneb 3 Mg/0.5 Mg (3 Ml) Ud) 3 ml INH RQ6 PRN PRN Reason: Shortness of Breath Last Admin: 08/19/18 00:24 Dose: 3 ml Bacitracin (Bacitracin) 1 ea TOP BID JAMIE Last Admin: 08/20/18 16:17 Dose: 1 ea Heparin Sodium (Porcine) (Heparin) 5,000 units SC Q8 JAMIE; Protocol Last Admin: 08/20/18 11:02 Dose: Not Given Folic Acid 1 mg/ Sodium (Chloride) 100.2 mls @ 60 mls/hr IVPB DAILY [facility] Last Admin: 08/20/18 08:41 Dose: 60 mls/hr Piperacillin Sod/Tazobactam (Sod 2.25 gm/ Sodium Chloride) 100 mls @ 100 mls/hr IVPB Q8 JAMIE; Protocol Last Admin: 08/20/18 16:18 Dose: 100 mls/hr Vancomycin HCl 750 mg/ Sodium (Chloride) 250 mls @ 166.667 mls/hr IVPB QOTHERDAY JAMIE; Protocol Thiamine HCl (Vitamin B1 Inj) 100 mg IV DAILY [facility] Last Admin: 08/20/18 08:45 Dose: 100 mg - Labs Labs: 08/20/18 13:11 08/20/18 13:11 PT 12.7 Seconds (9.8-13.1) 08/16/18 18:57 INR 1.1 08/16/18 18:57 APTT 34.6 Seconds (25.6-37.1) 08/16/18 18:57 - Constitutional Appears: Confused - Head Exam Head Exam: ATRAUMATIC, NORMAL INSPECTION, NORMOCEPHALIC - Eye Exam Eye Exam: EOMI, Normal appearance, PERRL Pupil Exam: NORMAL ACCOMODATION, PERRL - ENT Exam ENT Exam: Mucous Membranes Moist, Normal Exam - Neck Exam Neck Exam: Full ROM, Normal Inspection. absent: Lymphadenopathy - Respiratory Exam Respiratory Exam: Clear to Ausculation Bilateral, NORMAL BREATHING PATTERN - Cardiovascular Exam Cardiovascular Exam: REGULAR RHYTHM, +S1, +S2, Murmur - GI/Abdominal Exam GI & Abdominal Exam: Soft, Normal Bowel Sounds. absent: Tenderness - Extremities Exam Extremities Exam: Full ROM, Normal Capillary Refill, Normal Inspection. absent: Joint Swelling, Pedal Edema - Back Exam Back Exam: NORMAL INSPECTION - Neurological Exam Neurological Exam: Alert, Awake, CN II-XII Intact, Normal Gait, Oriented x3 - Psychiatric Exam Psychiatric exam: Normal Affect, Normal Mood - Skin Skin Exam: Dry, Intact, Normal Color, Warm Assessment and Plan (1) Endocarditis Assessment & Plan: MARION once metabolically and clinically stable cont rx with Abx Status: Acute (2) Acute renal failure Status: Acute (3) Hypoventilation Status: Acute (4) Altered mental status Status: Acute (5) ETOH abuse Status: Acute
[2018-08-21 06:53] LABS: CALCIUM 8.5 mg/dL (8.4-10.2)
--- NOTE | 2018-08-21 08:39 | CP.PCM.PN ---
Subjective - Date & Time of Evaluation Date of Evaluation: 08/20/18 Time of Evaluation: 15:15 Objective - Vital Signs/Intake and Output Vital Signs (last 24 hours): Temp Pulse Resp BP Pulse Ox 97.1 F L 74 16 103/67 100 08/21/18 05:00 08/21/18 05:00 08/21/18 05:00 08/21/18 05:00 08/21/18 05:00 - Medications Medications: Current Medications Albuterol/Ipratropium (Duoneb 3 Mg/0.5 Mg (3 Ml) Ud) 3 ml INH RQ6 PRN PRN Reason: Shortness of Breath Last Admin: 08/19/18 00:24 Dose: 3 ml Bacitracin (Bacitracin) 1 ea TOP BID JAMIE Last Admin: 08/20/18 16:17 Dose: 1 ea Heparin Sodium (Porcine) (Heparin) 5,000 units SC Q8 JAMIE; Protocol Last Admin: 08/21/18 01:05 Dose: 5,000 units Folic Acid 1 mg/ Sodium (Chloride) 100.2 mls @ 60 mls/hr IVPB DAILY [facility] Last Admin: 08/20/18 08:41 Dose: 60 mls/hr Piperacillin Sod/Tazobactam (Sod 2.25 gm/ Sodium Chloride) 100 mls @ 100 mls/hr IVPB Q8 JAMIE; Protocol Last Admin: 08/21/18 01:04 Dose: 100 mls/hr Vancomycin HCl 750 mg/ Sodium (Chloride) 250 mls @ 166.667 mls/hr IVPB QOTHERDAY JAMIE; Protocol Thiamine HCl (Vitamin B1 Inj) 100 mg IV DAILY [facility] Last Admin: 08/20/18 08:45 Dose: 100 mg - Labs Labs: 08/20/18 13:11 08/21/18 06:00 PT 12.7 Seconds (9.8-13.1) 08/16/18 18:57 INR 1.1 08/16/18 18:57 APTT 34.6 Seconds (25.6-37.1) 08/16/18 18:57
--- NOTE | 2018-08-21 08:40 | CP.PCM.PN ---
Subjective - Date & Time of Evaluation Date of Evaluation: 08/21/18 Time of Evaluation: 08:00 Objective - Vital Signs/Intake and Output Vital Signs (last 24 hours): Temp Pulse Resp BP Pulse Ox 97.1 F L 74 16 103/67 100 08/21/18 05:00 08/21/18 05:00 08/21/18 05:00 08/21/18 05:00 08/21/18 05:00 - Medications Medications: Current Medications Albuterol/Ipratropium (Duoneb 3 Mg/0.5 Mg (3 Ml) Ud) 3 ml INH RQ6 PRN PRN Reason: Shortness of Breath Last Admin: 08/19/18 00:24 Dose: 3 ml Bacitracin (Bacitracin) 1 ea TOP BID JAMIE Last Admin: 08/20/18 16:17 Dose: 1 ea Heparin Sodium (Porcine) (Heparin) 5,000 units SC Q8 JAMIE; Protocol Last Admin: 08/21/18 01:05 Dose: 5,000 units Folic Acid 1 mg/ Sodium (Chloride) 100.2 mls @ 60 mls/hr IVPB DAILY [facility] Last Admin: 08/20/18 08:41 Dose: 60 mls/hr Piperacillin Sod/Tazobactam (Sod 2.25 gm/ Sodium Chloride) 100 mls @ 100 mls/hr IVPB Q8 JAMIE; Protocol Last Admin: 08/21/18 01:04 Dose: 100 mls/hr Vancomycin HCl 750 mg/ Sodium (Chloride) 250 mls @ 166.667 mls/hr IVPB QOTHERDAY JAMIE; Protocol Thiamine HCl (Vitamin B1 Inj) 100 mg IV DAILY [facility] Last Admin: 08/20/18 08:45 Dose: 100 mg - Labs Labs: 08/20/18 13:11 08/21/18 06:00 PT 12.7 Seconds (9.8-13.1) 08/16/18 18:57 INR 1.1 08/16/18 18:57 APTT 34.6 Seconds (25.6-37.1) 08/16/18 18:57
--- NOTE | 2018-08-21 09:05 | CP.PCM.PN ---
Subjective - Date & Time of Evaluation Date of Evaluation: 08/21/18 Time of Evaluation: 09:04 - Subjective Subjective: ID note- Pt. seen and examined today. no complaints. remains afebrile. Objective - Vital Signs/Intake and Output Vital Signs (last 24 hours): Temp Pulse Resp BP Pulse Ox 97.5 F L 73 18 90/59 L 96 08/21/18 08:46 08/21/18 08:46 08/21/18 08:46 08/21/18 08:46 08/21/18 08:46 - Medications Medications: Current Medications Albuterol/Ipratropium (Duoneb 3 Mg/0.5 Mg (3 Ml) Ud) 3 ml INH RQ6 PRN PRN Reason: Shortness of Breath Last Admin: 08/19/18 00:24 Dose: 3 ml Bacitracin (Bacitracin) 1 ea TOP BID JAMIE Last Admin: 08/20/18 16:17 Dose: 1 ea Heparin Sodium (Porcine) (Heparin) 5,000 units SC Q8 JAMIE; Protocol Last Admin: 08/21/18 01:05 Dose: 5,000 units Folic Acid 1 mg/ Sodium (Chloride) 100.2 mls @ 60 mls/hr IVPB DAILY [facility] Last Admin: 08/20/18 08:41 Dose: 60 mls/hr Piperacillin Sod/Tazobactam (Sod 2.25 gm/ Sodium Chloride) 100 mls @ 100 mls/hr IVPB Q8 JAMIE; Protocol Last Admin: 08/21/18 01:04 Dose: 100 mls/hr Vancomycin HCl 750 mg/ Sodium (Chloride) 250 mls @ 166.667 mls/hr IVPB QOTH ERDAY [facility]; Protocol Thiamine HCl (Vitamin B1 Inj) 100 mg IV DAILY [facility] Last Admin: 08/20/18 08:45 Dose: 100 mg - Labs Labs: - Additional Findings Additional findings: - Constitutional Appears: Chronically Ill - Head Exam Head Exam: ATRAUMATIC - ENT Exam Additional comments: dry oral mucosa - Neck Exam Neck exam: Positive for: Full Rom - Respiratory Exam Respiratory Exam: NORMAL BREATHING PATTERN Additional comments: crackles bibasilar - Cardiovascular Exam Cardiovascular Exam: RRR, +S1, +S2 - GI/Abdominal Exam GI & Abdominal Exam: Distended Additional comments: hypoactive BS NT - Extremities Exam Additional comments: No edema b/l LE plantar aspect of b/l 2nd-4th digit and in between toe region with eschar and necrosis no malodo - Neurological Exam Additional comments: awake with baseline dementia Laboratory Results - last 72 hr 08/17/18 08/19/18 08/19/18 14:37 12:52 12:52 WBC RBC Hgb Hct MCV MCH MCHC RDW Plt Count MPV Neut % (Auto) Lymph % (Auto) Cooke % (Auto) Eos % (Auto) Baso % (Auto) Neut # (Auto) Lymph # (Auto) Cooke # (Auto) Eos # (Auto) Baso # (Auto) pCO2 pO2 HCO3 ABG pH ABG Total CO2 ABG O2 Saturation ABG O2 Content ABG Base Excess ABG Hemoglobin ABG Carboxyhemoglobin POC ABG HHb (Measured) ABG Methemoglobin ABG O2 Capacity Pedro Test A-a O2 Difference Hgb O2 Saturation FiO2 Sodium Potassium Chloride Carbon Dioxide Anion Gap BUN Creatinine Est GFR ( Amer) Est GFR (Non-Af Amer) Random Glucose Lactic Acid Calcium Phosphorus Magnesium Total Bilirubin AST ALT Alkaline Phosphatase Total Protein Albumin Globulin Albumin/Globulin Ratio Alpha Fetoprotein 63.8 H Carcinoembryonic Ag CA 19-9 Antigen Free PSA 2.0 % Free PSA 29 Total PSA 6.9 H Mycoplasma pneumon IgG 1.05 H Mycoplasma pneumon IgM 447 08/19/18 08/19/18 08/19/18 12:52 13:34 13:34 WBC 10.2 RBC 4.99 Hgb 14.7 Hct 44.1 MCV 88.3 MCH 29.5 MCHC 33.5 RDW 15.9 H Plt Count 107 L MPV 11.5 Neut % (Auto) 75.5 H Lymph % (Auto) 12.5 L Cooke % (Auto) 10.0 Eos % (Auto) 1.1 Baso % (Auto) 0.9 Neut # (Auto) 7.7 H Lymph # (Auto) 1.3 Cooke # (Auto) 1.0 H Eos # (Auto) 0.1 Baso # (Auto) 0.1 pCO2 pO2 HCO3 ABG pH ABG Total CO2 ABG O2 Saturation ABG O2 Content ABG Base Excess ABG Hemoglobin ABG Carboxyhemoglobin POC ABG HHb (Measured) ABG Methemoglobin ABG O2 Capacity Pedro Test A-a O2 Difference Hgb O2 Saturation FiO2 Sodium 152 H Potassium 4.0 Chloride 129 H Carbon Dioxide 14 L Anion Gap 13 BUN 60 H Creatinine 2.1 H Est GFR ( Amer) 38 Est GFR (Non-Af Amer) 31 Random Glucose 98 Lactic Acid Calcium 8.5 Phosphorus 5.4 H Magnesium 2.3 Total Bilirubin 1.4 H AST 74 H D ALT 44 Alkaline Phosphatase 203 H Total Protein 6.8 Albumin 2.4 L Globulin 4.4 H Albumin/Globulin Ratio 0.6 L Alpha Fetoprotein Carcinoembryonic Ag 4.2 H CA 19-9 Antigen 1120 H Free PSA % Free PSA Total PSA Mycoplasma pneumon IgG Mycoplasma pneumon IgM 08/20/18 08/20/18 08/20/18 12:05 12:14 13:11 WBC 9.8 RBC 4.84 Hgb 14.2 Hct 42.6 MCV 88.0 MCH 29.3 MCHC 33.3 RDW 15.8 H Plt Count 99 L MPV Neut % (Auto) Lymph % (Auto) Cooke % (Auto) Eos % (Auto) Baso % (Auto) Neut # (Auto) Lymph # (Auto) Cooke # (Auto) Eos # (Auto) Baso # (Auto) pCO2 22 L pO2 71 L HCO3 17.1 L ABG pH 7.38 ABG Total CO2 13.7 L ABG O2 Saturation 97.6 ABG O2 Content 18.8 ABG Base Excess -9.9 L ABG Hemoglobin 14.3 ABG Carboxyhemoglobin 2.6 H POC ABG HHb (Measured) 2.3 ABG Methemoglobin 1.6 ABG O2 Capacity 19.3 Pedro Test Yes A-a O2 Difference 101.0 Hgb O2 Saturation 93.5 L FiO2 28.0 Sodium Potassium Chloride Carbon Dioxide Anion Gap BUN Creatinine Est GFR ( Amer) Est GFR (Non-Af Amer) Random Glucose Lactic Acid 1.4 Calcium Phosphorus Magnesium Total Bilirubin AST ALT Alkaline Phosphatase Total Protein Albumin Globulin Albumin/Globulin Ratio Alpha Fetoprotein Carcinoembryonic Ag CA 19-9 Antigen Free PSA % Free PSA Total PSA Mycoplasma pneumon IgG Mycoplasma pneumon IgM 08/20/18 08/21/18 13:11 06:00 WBC RBC Hgb Hct MCV MCH MCHC RDW Plt Count MPV Neut % (Auto) Lymph % (Auto) Cooke % (Auto) Eos % (Auto) Baso % (Auto) Neut # (Auto) Lymph # (Auto) Cooke # (Auto) Eos # (Auto) Baso # (Auto) pCO2 pO2 HCO3 ABG pH ABG Total CO2 ABG O2 Saturation ABG O2 Content ABG Base Excess ABG Hemoglobin ABG Carboxyhemoglobin POC ABG HHb (Measured) ABG Methemoglobin ABG O2 Capacity Pedro Test A-a O2 Difference Hgb O2 Saturation FiO2 Sodium 152 H 152 H Potassium 3.6 3.9 Chloride 128 H 131 H Carbon Dioxide 15 L 15 L Anion Gap 13 10 BUN 58 H 60 H Creatinine 2.2 H 2.4 H Est GFR ( Amer) 36 32 Est GFR (Non-Af Amer) 29 27 Random Glucose 100 95 Lactic Acid Calcium 8.4 8.5 Phosphorus Magnesium Total Bilirubin AST ALT Alkaline Phosphatase Total Protein Albumin Globulin Albumin/Globulin Ratio Alpha Fetoprotein Carcinoembryonic Ag CA 19-9 Antigen Free PSA % Free PSA Total PSA Mycoplasma pneumon IgG Mycoplasma pneumon IgM Microbiology 08/19/18 11:40 Blood-Venous Blood Culture - Preliminary NO GROWTH AFTER 48 HOURS 08/19/18 11:40 Blood-Venous Blood Culture - Preliminary NO GROWTH AFTER 48 HOURS 08/18/18 17:20 Naris MRSA Culture (Admit) - Final MRSA NOT DETECTED 08/16/18 19:58 Blood-Venous Blood Culture - Preliminary NO GROWTH AFTER 4 DAYS 08/16/18 19:02 Blood-Venous Blood Culture - Preliminary NO GROWTH AFTER 4 DAYS 08/16/18 21:14 Urine,Clean Catch Urine Culture - Final No Growth (<1,000 CFU/ML) Assessment and Plan (1) Acute renal failure Status: Acute (2) Weakness Status: Acute (3) Hypothermia Status: Acute (4) Hypoventilation Status: Acute - Assessment and Plan (Free Text) Assessment: A/P- 73 year old male from [place] admitted with weakness, poor oral intake and found to be in Acute renal insufficiency and hypothermi hypotensive. Pt.has remained afebrile and has normal wbc CXR report - pulmonary vascular congestion and trace pleural effusion. blood cx- neg x 4 TTE- as per report read by tele admission liaison- ? tricuspid valve vegetation CT abd/pelvis- hepatic mass and ? 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 plan- in light of this ? TR veg advise to continue with IV vanco pending further results. day #3 dose renal. keep vanco trough <15. doubt IE as pt. afebrile, no leukocytosis and all blood cx negative. will speak with admission liaison. perhaps check second TTE or have second look at the original echo. continue empiric IV zosyn as well since pt. was recently d/c from hospital and to cover for Hospital acquired pathogens. new Ct abd/ct results noted. advise to get oncology evaluation. d/w .
[2018-08-21] MEDS: Thiamine 100 mg/ml Inj IV SCH (10:39)
[2018-08-21] MEDS: Bacitracin 500 Units/gm Oint Foilpak UD TOP SCH ×2 (10:40→17:22)
--- NOTE | 2018-08-21 12:25 | US ---
Date of service: Data 08/21/2018 PROCEDURE: Duplex ultrasound of the bilateral lower extremity arteries. HISTORY: pvd COMPARISON: None available. TECHNIQUE: Grayscale and duplex Doppler evaluation of the bilateral common femoral, superficial femoral, popliteal, posterior tibial and dorsalis pedis arteries was performed.. FINDINGS: RIGHT LOWER EXTREMITY: RIGHT COMMON FEMORAL ARTERY: Calcified nonaneurysmal abdominal aorta. Maximal flow velocity of 79.4 cm/s. RIGHT SUPERFICIAL FEMORAL ARTERY: Intimal thickening is present Maximal flow velocity of 106.2 cm/s. RIGHT POPLITEAL ARTERY:Widely patent. Maximal flow velocity of 48.6 cm/s. RIGHT POSTERIOR TIBIAL ARTERY: Intimal thickening is present Maximal flow velocity of 59.0 cm/s. RIGHT DORSALIS PEDIS ARTERY: Intimal thickening is present Maximal flow velocity of 27.0 cm/s. LEFT LOWER EXTREMITY: LEFT COMMON FEMORAL ARTERY: Calcified nonaneurysmal abdominal aorta. Maximal flow velocity of 143.8 cm/s. LEFT SUPERFICIAL FEMORAL ARTERY: Intimal thickening is present Maximal flow velocity of 25.2 cm/s. LEFT POPLITEAL ARTERY: Intimal thickening is present Maximal flow velocity of 67.8 cm/s. LEFT POSTERIOR TIBIAL ARTERY: Intimal thickening is present Maximal flow velocity of 59.4 cm/s. LEFT DORSALIS PEDIS ARTERY: Intimal thickening is present Maximal flow velocity of 26.2 cm/s. OTHER FINDINGS: None. IMPRESSION: Diffuse atherosclerotic disease bilaterally. Normal Duplex Doppler of the bilateral lower extremity arteries. No critical stenoses or obstructing lesions identified.
--- NOTE | 2018-08-21 13:10 | CT ---
Date of service: 08/21/2018 PROCEDURE: CT Abdomen and Pelvis without intravenous contrast HISTORY: Abdominal Pain, High Tumor Markers and Ascites. COMPARISON: None. TECHNIQUE: Without contrast.. Contrast dose: 0 Radiation dose: Total exam DLP = 624.64 mGy-cm. This CT exam was performed using one or more of the following dose reduction techniques: Automated exposure control, adjustment of the mA and/or kV according to patient size, and/or use of iterative reconstruction technique. FINDINGS: LOWER THORAX: Bilateral small pleural effusion. Bilateral segmental/subsegmental lower lobe atelectasis. LIVER: There is a large ill-defined area of decreased attenuation in the lateral segment of the left hepatic lobe measuring approximately 4.0 x 6.4 cm. The liver is generally heterogeneous but this is due, in part, to beam hardening artifact arising from metallic leads over the patient's abdominal wall. Several smaller ill-defined low-attenuation lesions are identified in the left lobe of the liver. A contrast-enhanced study is advised for further evaluation as the extent of suspected neoplasm in the liver may be much greater than can be appreciated on this noncontrast study. No intrahepatic biliary dilatation. Mildly nodular contour of questionable significance. GALLBLADDER AND BILE DUCTS: Unremarkable. PANCREAS: Unremarkable. No gross lesion or ductal dilatation. SPLEEN: Unremarkable. ADRENALS: Unremarkable. No mass. KIDNEYS AND URETERS: Unremarkable. No hydronephrosis. No solid mass. VASCULATURE: Unremarkable. No aortic aneurysm. BOWEL: There is mural thickening of the entire colon consistent with nonspecific roca colitis. There is suspected fatty infiltration of the wall of the cecum and ascending colon and proximal transverse colon. This may indicate previous or long-standing inflammatory bowel disease. There is also apparent marked mural thickening of the 2nd portion of the duodenum raising suspicion for duodenal neoplasm. This could also represent a pedunculated pancreatic head neoplasm. Again, evaluation with a contrast enhanced CT examination or magnetic resonance imaging is necessary to further delineate. Further evaluation with endoscopy should be considered. There diverticulosis of the sigmoid colon without evidence of diverticulitis. There is no evidence of bowel obstruction. There is questionable nonspecific enteritis involving multiple loops of small bowel in the left upper and central abdomen. APPENDIX: Unremarkable. Normal appendix. PERITONEUM: Massive ascites. There is extensive edema of the small bowel mesentery. There is some edema seen in the greater omentum. There is no evidence of omental metastasis. LYMPH NODES: A few mildly enlarged peripancreatic lymph nodes are identified. Questionable significance. No retroperitoneal or pelvic lymphadenopathy is identified. BLADDER: Decompressed around Kapadia catheter balloon. REPRODUCTIVE: Normal prostate BONES: No acute fracture. OTHER FINDINGS: None. IMPRESSION: Massive ascites. Suspect neoplasm in lateral segment left hepatic lobe with possible multifocal neoplasm. Evaluation is technically limited and further evaluation with contrast-enhanced CT or gadolinium enhanced magnetic resonance imaging should be considered. Questionable neoplasm involving 2nd portion of the duodenum versus pancreatic head. Few peripancreatic nodes are incidentally noted. No evidence of biliary obstruction. Roca colitis common nonspecific. Fatty infiltration of the wall of a large portion of the colon may indicate prior long-standing inflammatory bowel disease. Nonspecific enteritis suspected involving multiple loops of small bowel. Bilateral pleural effusion with lower lobe segmental/subsegmental atelectasis. Sigmoid diverticulosis. Kapadia catheter.
--- NOTE | 2018-08-21 16:13 | CP.PCM.PN ---
Subjective - Date & Time of Evaluation Date of Evaluation: 08/21/18 Time of Evaluation: 16:11 - Subjective Subjective: MS altered CT - pancreatic ca and liver ca with multiple lesions overall poor prognosis Objective - Vital Signs/Intake and Output Vital Signs (last 24 hours): Temp Pulse Resp BP Pulse Ox 97.8 F 66 20 80/52 L 97 08/21/18 15:52 08/21/18 15:52 08/21/18 15:52 08/21/18 15:52 08/21/18 15:52 - Medications Medications: Current Medications Albuterol/Ipratropium (Duoneb 3 Mg/0.5 Mg (3 Ml) Ud) 3 ml INH RQ6 PRN PRN Reason: Shortness of Breath Last Admin: 08/19/18 00:24 Dose: 3 ml Bacitracin (Bacitracin) 1 ea TOP BID JAMIE Last Admin: 08/21/18 10:40 Dose: 1 ea Heparin Sodium (Porcine) (Heparin) 5,000 units SC Q8 JAMIE; Protocol Last Admin: 08/21/18 10:40 Dose: 5,000 units Folic Acid 1 mg/ Sodium (Chloride) 100.2 mls @ 60 mls/hr IVPB DAILY [facility] Last Admin: 08/21/18 10:38 Dose: 60 mls/hr Piperacillin Sod/Tazobactam (Sod 2.25 gm/ Sodium Chloride) 100 mls @ 100 mls/hr IVPB Q8 JAMIE; Protocol Last Admin: 08/21/18 10:37 Dose: 100 mls/hr Vancomycin HCl 750 mg/ Sodium (Chloride) 250 mls @ 166.667 mls/hr IVPB QOTHERDAY [facility]AMIE; Protocol Last Admin: 08/21/18 11:59 Dose: 166.667 mls/hr Thiamine HCl (Vitamin B1 Inj) 100 mg IV DAILY [facility] Last Admin: 08/21/18 10:39 Dose: 100 mg - Labs Labs: 08/20/18 13:11 08/21/18 06:00 PT 12.7 Seconds (9.8-13.1) 08/16/18 18:57 INR 1.1 08/16/18 18:57 APTT 34.6 Seconds (25.6-37.1) 08/16/18 18:57 - Constitutional Appears: Confused - Head Exam Head Exam: ATRAUMATIC, NORMAL INSPECTION, NORMOCEPHALIC - Eye Exam Eye Exam: EOMI, Normal appearance, PERRL Pupil Exam: NORMAL ACCOMODATION, PERRL - ENT Exam ENT Exam: Mucous Membranes Moist, Normal Exam - Neck Exam Neck Exam: Full ROM, Normal Inspection. absent: Lymphadenopathy - Respiratory Exam Respiratory Exam: Clear to Ausculation Bilateral, NORMAL BREATHING PATTERN - Cardiovascular Exam Cardiovascular Exam: REGULAR RHYTHM, +S1, +S2, Murmur - GI/Abdominal Exam GI & Abdominal Exam: Soft, Normal Bowel Sounds. absent: Tenderness - Extremities Exam Extremities Exam: Full ROM, Normal Capillary Refill, Normal Inspection. absent: Joint Swelling, Pedal Edema - Back Exam Back Exam: NORMAL INSPECTION - Neurological Exam Neurological Exam: Altered - Psychiatric Exam Psychiatric exam: Normal Affect, Normal Mood - Skin Skin Exam: Dry, Intact, Normal Color, Warm Assessment and Plan (1) Endocarditis Assessment & Plan: MARION deferred until metabolically stable Status: Acute (2) Acute renal failure Status: Acute (3) Hypoventilation Status: Acute (4) Altered mental status Status: Acute (5) ETOH abuse Status: Acute
[2018-08-21] MEDS ORDERED: Dextrose 5%/0.45% NS 1,000 ML IV SCH (16:30)
[2018-08-21 19:26] LABS: CREATININE, RANDOM URINE 222.5 mg/dL
--- NOTE | 2018-08-21 23:12 | CP.PCM.CON ---
History of Present Illness - History of Present Illness History of Present Illness: 73 yo M w/ no past medical history prior to being admitted last month with altered mental status before being discharged on rehab facility; now sent from rehab due to lethargy, decreased PO intake and abnormal labs; nephrology being consulted for ISAURO; On last admission, patient's family was surprised at his level of confusion and stated that he was very independent, even riding his bike, despite ETOH abuse; Patient is very poor historian; per nursing staff, PO intake still very low; Past Patient History - Infectious Disease Hx of Infectious Diseases: None - Past Medical History & Family History Past Medical History?: Yes - Past Social History Smoking Status: Unknown If Ever Smoked Chewing Tobacco Use: No Cigar Use: No Alcohol: None Drugs: Denies Home Situation {Lives}: [facility] - CARDIAC Hx Cardiac Disorders: No - PULMONARY Hx Respiratory Disorders: No - NEUROLOGICAL Hx Neurological Disorder: Yes - HEENT Hx HEENT Problems: No - RENAL Hx Renal Failure: Yes Other/Comment: Acute Kidney injury - HEMATOLOGICAL/ONCOLOGICAL Hx Blood Disorders: No - INTEGUMENTARY Hx Dermatological Problems: No - MUSCULOSKELETAL/RHEUMATOLOGICAL Hx Musculoskeletal Disorders: No - GASTROINTESTINAL Hx Gastrointestinal Disorders: No - GENITOURINARY/GYNECOLOGICAL Hx Genitourinary Disorders: No - PSYCHIATRIC Hx Psychophysiologic Disorder: No - SURGICAL HISTORY Hx Surgeries: No (Unknown) - ANESTHESIA Hx Anesthesia: No (Unknown) Meds Allergies/Adverse Reactions: Allergies Allergy/AdvReac Type Severity Reaction Status Date / Time No Known Allergies Allergy Verified 08/06/18 11:02 - Medications Medications: Current Medications Albuterol/Ipratropium (Duoneb 3 Mg/0.5 Mg (3 Ml) Ud) 3 ml INH RQ6 PRN PRN Reason: Shortness of Breath Last Admin: 08/19/18 00:24 Dose: 3 ml Bacitracin (Bacitracin) 1 ea TOP BID [facility] Last Admin: 08/21/18 17:22 Dose: 1 ea Heparin Sodium (Porcine) (Heparin) 5,000 units SC Q8 [facility]; Protocol Last Admin: 08/21/18 17:22 Dose: 5,000 units Folic Acid 1 mg/ Sodium (Chloride) 100.2 mls @ 60 mls/hr IVPB DAILY [facility] Last Admin: 08/21/18 10:38 Dose: 60 mls/hr Piperacillin Sod/Tazobactam (Sod 2.25 gm/ Sodium Chloride) 100 mls @ 100 mls/hr IVPB Q8 [facility]; Protocol Last Admin: 08/21/18 17:20 Dose: 100 mls/hr Vancomycin HCl 750 mg/ Sodium (Chloride) 250 mls @ 166.667 mls/hr IVPB QOTHERDAY [facility]; Protocol Last Admin: 08/21/18 11:59 Dose: 166.667 mls/hr Dextrose/Sodium Chloride (Dextrose 5%/0.45% Ns 1000 Ml) 1,000 mls @ 50 mls/hr IV .Q20H [facility] Stop: 08/22/18 16:30 Last Admin: 08/21/18 17:23 Dose: 50 mls/hr Thiamine HCl (Vitamin B1 Inj) 100 mg IV DAILY [facility] Last Admin: 08/21/18 10:39 Dose: 100 mg Results - Vital Signs Recent Vital Signs: Last Vital Signs Temp 97.4 F L 08/21/18 19:41 Pulse 64 08/21/18 19:41 Resp 20 08/21/18 19:41 BP 94/60 L 08/21/18 19:41 Pulse Ox 97 08/21/18 19:41 - Labs Result Diagrams: 08/20/18 13:11 08/21/18 06:00 Labs: Laboratory Results - last 24 hr 08/21/18 08/21/18 06:00 18:33 Sodium 152 H Potassium 3.9 Chloride 131 H Carbon Dioxide 15 L Anion Gap 10 BUN 60 H Creatinine 2.4 H Est GFR ( Amer) 32 Est GFR (Non-Af Amer) 27 Random Glucose 95 Calcium 8.5 Ur Random Creatinine 222.5 Ur Random Sodium 16 Assessment & Plan (1) ISAURO (acute kidney injury) Assessment and Plan: Etiology not entirely clear; oliguric renal failure with urine lytes indicative of pre-renal etiology but not responding to IVF (although patient is severely hypoalbuminemic and may need more aggressive intravascular volume expansion); in the setting of severe ascites, need to consider abdominal compartment syndrome; -Recommend therapeutic large volume paracentesis (should give IV albumin 6 g per L removed if >5L to prevent hypotension) -Will start IV albumin 25% q5h over next 24 hrs for volume expansion; -May benefit from midodrine to maintain MAP > 65; Status: Acute Priority: High (2) Ascites Assessment and Plan: See above; avoid diuretics for now despite patient having anasarca and severe ascites; Status: Acute (3) Hypernatremia Assessment and Plan: Over 3 L free water deficit; -Increasing 1/2NS to 100 cc/hr; Status: Acute
[2018-08-22] MEDS: Dextrose 5%/0.45% NS 1,000 ML IV SCH ×3 (04:16→17:03)
[2018-08-22] MEDS: WATER IVPB SCH ×2 (09:43→17:02)
[2018-08-22] MEDS: DEXTROSE 5% IVPB SCH ×2 (09:43→17:02)
[2018-08-22] MEDS: PIPERACILLIN IVPB SCH ×2 (09:43→17:02)
[2018-08-22] MEDS: TAZOBACT IVPB SCH ×2 (09:43→17:02)
[2018-08-22] MEDS: Thiamine 100 mg/ml Inj IV SCH (10:38)
[2018-08-22] MEDS: Bacitracin 500 Units/gm Oint Foilpak UD TOP SCH ×2 (10:55→17:03)
[2018-08-22 16:19] LABS: BASO # 0.1 K/uL (0.0-0.2); BASO % 0.6 % (0.0-2.0); EOS # 0.2 K/uL (0.0-0.7); EOS % 1.2 % (0.0-4.0); HEMOGLOBIN 13.4 g/dL (12.0-18.0); LYMPH # 1.2 K/uL (1.0-4.3); LYMPH % 9.5 % (20.0-40.0); MEAN CELL VOLUME 87.7 fl (80.0-94.0); MEAN CORPUSCULAR HEMOGLOBIN 28.9 pg (27.0-31.0); MONO # 1.1 K/uL (0.0-0.8); MONO % 8.6 % (0.0-10.0); NEUT # 10.5 K/uL (1.8-7.0); NEUT % 80.1 % (50.0-75.0); PLATELET COUNT 85 K/uL (130-400); RBC 4.62 Mil/uL (4.40-5.90); RED CELL DISTRIBUTION WIDTH 16.8 % (11.5-14.5); WHITE BLOOD COUNT 13.1 K/uL (4.8-10.8)
[2018-08-22 16:31] LABS: ALB/GLOB RATIO 0.5 (1.0-2.1); ALBUMIN 2.2 g/dL (3.5-5.0); CALCIUM 8.6 mg/dL (8.4-10.2)
[2018-08-22 16:50] LABS: BANDS 1 % (0-2); LYMPHOCYTE 10 % (20-50); METAMYELOCYTE 1 % (0-0); MONOCYTE 8 % (0-10); NEUTROPHIL 80 % (42-75); TOTAL CELLS COUNTED 100
[2018-08-22 16:58] LABS: PLATELET ESTIMATE SLIGHTLY DECREASED (NORMAL)
--- NOTE | 2018-08-22 17:09 | CP.PCM.CON ---
History of Present Illness - History of Present Illness History of Present Illness: 73 year old male presenting from the [place] with a history of dementia, poor po intake, renal failure, hypotension with concern for infection, found to have liver lesions and possible pancreatic head mass concerning for malignancy. The patient is confused and I am unable to obtain a history from him. He appears chronically ill and debilitated. Review of his imaging is concerning for liver lesions and possible pancreatic head mass suggestive of malignancy. Past medical, surgical, family, social history cannot be obtained from the patient. Allergies: Per documentation [facility] Review of systems cannot be obtained. Past Patient History - Infectious Disease Hx of Infectious Diseases: None - Past Medical History & Family History Past Medical History?: Yes - Past Social History Smoking Status: Unknown If Ever Smoked Chewing Tobacco Use: No Cigar Use: No Alcohol: None Drugs: Denies Home Situation {Lives}: Care Home - CARDIAC Hx Cardiac Disorders: No - PULMONARY Hx Respiratory Disorders: No - NEUROLOGICAL Hx Neurological Disorder: Yes - HEENT Hx HEENT Problems: No - RENAL Hx Renal Failure: Yes Other/Comment: Acute Kidney injury - HEMATOLOGICAL/ONCOLOGICAL Hx Blood Disorders: No - INTEGUMENTARY Hx Dermatological Problems: No - MUSCULOSKELETAL/RHEUMATOLOGICAL Hx Musculoskeletal Disorders: No - GASTROINTESTINAL Hx Gastrointestinal Disorders: No - GENITOURINARY/GYNECOLOGICAL Hx Genitourinary Disorders: No - PSYCHIATRIC Hx Psychophysiologic Disorder: No - SURGICAL HISTORY Hx Surgeries: No (Unknown) - ANESTHESIA Hx Anesthesia: No (Unknown) Meds Allergies/Adverse Reactions: Allergies Allergy/AdvReac Type Severity Reaction Status Date / Time No Known Allergies Allergy Verified 08/06/18 11:02 - Medications Medications: Current Medications Albuterol/Ipratropium (Duoneb 3 Mg/0.5 Mg (3 Ml) Ud) 3 ml INH RQ6 PRN PRN Reason: Shortness of Breath Last Admin: 08/19/18 00:24 Dose: 3 ml Bacitracin (Bacitracin) 1 ea TOP BID [facility] Last Admin: 08/22/18 17:03 Dose: 1 ea Heparin Sodium (Porcine) (Heparin) 5,000 units SC Q8 [facility]; Protocol Last Admin: 08/22/18 17:02 Dose: Not Given Folic Acid 1 mg/ Sodium (Chloride) 100.2 mls @ 60 mls/hr IVPB DAILY [facility] Last Admin: 08/22/18 10:39 Dose: 60 mls/hr Vancomycin HCl 750 mg/ Sodium (Chloride) 250 mls @ 166.667 mls/hr IVPB QOTHERDAY [facility]; Protocol Last Admin: 08/21/18 11:59 Dose: 166.667 mls/hr Piperacillin Sod/Tazobactam (Sod 2.25 gm/ Dextrose) 100 mls @ 100 mls/hr IVPB Q8 [facility]; Protocol Last Admin: 08/22/18 17:02 Dose: 100 mls/hr Morphine Sulfate (Morphine) 1 mg IVP Q4 PRN PRN Reason: Pain, severe (8-10) Last Admin: 08/22/18 16:59 Dose: 1 mg Thiamine HCl (Vitamin B1 Inj) 100 mg IV DAILY [facility] Last Admin: 08/22/18 10:38 Dose: 100 mg Physical Exam - Constitutional Appears: Cachectic - Head Exam Head Exam: ATRAUMATIC - Eye Exam Eye Exam: Normal appearance - ENT Exam ENT Exam: Mucous Membranes Dry - Respiratory Exam Respiratory Exam: NORMAL BREATHING PATTERN - Cardiovascular Exam Cardiovascular Exam: +S1, +S2 - GI/Abdominal Exam GI & Abdominal Exam: Normal Bowel Sounds - Neurological Exam Neurological exam: Altered - Psychiatric Exam Psychiatric exam: Flat Affect - Skin Skin Exam: Warm Results - Vital Signs Recent Vital Signs: Last Vital Signs Temp 97.4 F L 08/22/18 15:49 Pulse 68 08/22/18 15:49 Resp 18 08/22/18 15:49 BP 89/57 L 08/22/18 15:49 Pulse Ox 100 08/22/18 15:49 - Labs Result Diagrams: 08/22/18 16:06 08/22/18 16:06 Labs: Laboratory Results - last 24 hr 08/21/18 08/22/18 08/22/18 18:33 05:55 16:06 WBC 13.1 H RBC 4.62 Hgb 13.4 Hct 40.5 MCV 87.7 MCH 28.9 MCHC 33.0 RDW 16.8 H Plt Count 85 L MPV 11.0 Neut % (Auto) 80.1 H Lymph % (Auto) 9.5 L Lanier % (Auto) 8.6 Eos % (Auto) 1.2 Baso % (Auto) 0.6 Neut # (Auto) 10.5 H Lymph # (Auto) 1.2 Lanier # (Auto) 1.1 H Eos # (Auto) 0.2 Baso # (Auto) 0.1 Neutrophils % (Manual) 80 H Band Neutrophils % 1 Lymphocytes % (Manual) 10 L Monocytes % (Manual) 8 Metamyelocytes % 1 H Platelet Estimate Slightly decreased L Sodium Potassium Chloride Carbon Dioxide Anion Gap BUN Creatinine Est GFR ( Amer) Est GFR (Non-Af Amer) Random Glucose Lactic Acid Calcium Phosphorus Magnesium Total Bilirubin AST ALT Alkaline Phosphatase Total Protein Albumin Globulin Albumin/Globulin Ratio Ur Random Creatinine 222.5 Ur Random Sodium 16 Vancomycin Trough 7.7 08/22/18 08/22/18 16:06 16:06 WBC RBC Hgb Hct MCV MCH MCHC RDW Plt Count MPV Neut % (Auto) Lymph % (Auto) Lanier % (Auto) Eos % (Auto) Baso % (Auto) Neut # (Auto) Lymph # (Auto) Lanier # (Auto) Eos # (Auto) Baso # (Auto) Neutrophils % (Manual) Band Neutrophils % Lymphocytes % (Manual) Monocytes % (Manual) Metamyelocytes % Platelet Estimate Sodium 151 H Potassium 3.4 L Chloride 130 H Carbon Dioxide 13 L Anion Gap 11 BUN 62 H Creatinine 2.7 H Est GFR ( Amer) 28 Est GFR (Non-Af Amer) 23 Random Glucose 116 H Lactic Acid 1.3 Calcium 8.6 Phosphorus 5.1 H Magnesium 2.3 Total Bilirubin 1.6 H AST 65 H ALT 33 Alkaline Phosphatase 196 H Total Protein 6.4 Albumin 2.2 L Globulin 4.2 H Albumin/Globulin Ratio 0.5 L Ur Random Creatinine Ur Random Sodium Vancomycin Trough Assessment & Plan (1) Liver mass Assessment and Plan: imaging concerning for pancreatic head mass with liver metastasis debility prohibits malignancy treatment, would recommend against biopsy unless NOK would like to pursue diagnosis Status: Acute (2) Thrombocytopenia Assessment and Plan: suspect infection related consider holding heparin if worsens Thank you for this interesting consult. Status: Acute
[2018-08-22] MEDS: Albuterol-Ipratrop 3 mg / 0.5 (3 ml) UD INH PRN (17:14)
--- NOTE | 2018-08-22 20:12 | CP.PCM.PN ---
Subjective - Date & Time of Evaluation Date of Evaluation: 08/22/18 Time of Evaluation: 18:00 - Subjective Subjective: SEEN ON RENAL F/U IN COVERAGE OF DR ARREOLA NOT DOING WELL ALL PREVIOUS EMR REVIEWED RENAL FUNCTION STILL THE SAME FOR HYPRERNATREMIA WE SHOULD D/C ZOSYN AND SUBSTITUTE Objective - Vital Signs/Intake and Output Vital Signs (last 24 hours): Temp Pulse Resp BP Pulse Ox 97.4 F L 68 18 89/57 L 100 08/22/18 15:49 08/22/18 15:49 08/22/18 15:49 08/22/18 15:49 08/22/18 15:49 Intake and Output: 08/22/18 08/23/18 18:59 06:59 Intake Total 1700 Output Total 200 Balance 1500 - Medications Medications: Current Medications Albuterol/Ipratropium (Duoneb 3 Mg/0.5 Mg (3 Ml) Ud) 3 ml INH RQ6 PRN PRN Reason: Shortness of Breath Last Admin: 08/22/18 17:14 Dose: 3 ml Bacitracin (Bacitracin) 1 ea TOP BID [facility] Last Admin: 08/22/18 17:03 Dose: 1 ea Heparin Sodium (Porcine) (Heparin) 5,000 units SC Q8 [facility]; Protocol Last Admin: 08/22/18 17:02 Dose: Not Given Folic Acid 1 mg/ Sodium (Chloride) 100.2 mls @ 60 mls/hr IVPB DAILY [facility] Last Admin: 08/22/18 10:39 Dose: 60 mls/hr Vancomycin HCl 750 mg/ Sodium (Chloride) 250 mls @ 166.667 mls/hr IVPB QOTHERDAY [facility]; Protocol Last Admin: 08/21/18 11:59 Dose: 166.667 mls/hr Piperacillin Sod/Tazobactam (Sod 2.25 gm/ Dextrose) 100 mls @ 100 mls/hr IVPB Q8 [facility]; Protocol Last Admin: 08/22/18 17:02 Dose: 100 mls/hr Morphine Sulfate (Morphine) 1 mg IVP Q4 PRN PRN Reason: Pain, severe (8-10) Last Admin: 08/22/18 16:59 Dose: 1 mg Thiamine HCl (Vitamin B1 Inj) 100 mg IV DAILY [facility] Last Admin: 08/22/18 10:38 Dose: 100 mg - Labs Labs: 08/22/18 16:06 08/22/18 16:06 PT 12.7 Seconds (9.8-13.1) 08/16/18 18:57 INR 1.1 08/16/18 18:57 APTT 34.6 Seconds (25.6-37.1) 08/16/18 18:57 Assessment and Plan - Assessment and Plan (Free Text) Assessment: ISAURO .. PRE RENAL .. C/O IVF HYPER NATREMIA .. WE NEED TO D/C ZOSYN CA PANCREASE ? LIVER ? MMP P : C/O CURRENT CARE C/O IVF WILL D/W ID TO D/C ZOSYN IF POSSIBLE AND SUBSTITUTE WITH SOMTHING ALSE
[2018-08-23] MEDS: DEXTROSE 5% IVPB SCH ×3 (00:53→16:58)
[2018-08-23] MEDS: WATER IVPB SCH ×3 (00:53→16:58)
[2018-08-23] MEDS: TAZOBACT IVPB SCH ×3 (00:53→16:58)
[2018-08-23] MEDS: PIPERACILLIN IVPB SCH ×3 (00:53→16:58)
[2018-08-23] MEDS: Bacitracin 500 Units/gm Oint Foilpak UD TOP SCH ×2 (10:45→16:58)
[2018-08-23] MEDS: Thiamine 100 mg/ml Inj IV SCH (10:46)
[2018-08-23] MEDS: Dextrose 5%/0.45% NS 1,000 ML IV SCH (11:00)
[2018-08-23] MEDS ORDERED: Sodium Chloride 0.9% 1,000 ML IV SCH (13:15)
--- NOTE | 2018-08-23 20:44 | CP.PCM.PN ---
Subjective - Date & Time of Evaluation Date of Evaluation: 08/22/18 Time of Evaluation: 13:25 Objective - Vital Signs/Intake and Output Vital Signs (last 24 hours): Temp Pulse Resp BP Pulse Ox 97.3 F L 60 16 99/58 L 100 08/23/18 19:37 08/23/18 19:37 08/23/18 19:37 08/23/18 15:57 08/23/18 19:37 Intake and Output: 08/23/18 08/24/18 18:59 06:59 Intake Total 2250 Output Total 275 Balance 1974 - Medications Medications: Current Medications Albuterol/Ipratropium (Duoneb 3 Mg/0.5 Mg (3 Ml) Ud) 3 ml INH RQ6 PRN PRN Reason: Shortness of Breath Last Admin: 08/22/18 17:14 Dose: 3 ml Bacitracin (Bacitracin) 1 ea TOP BID [facility] Last Admin: 08/23/18 16:58 Dose: 1 ea Heparin Sodium (Porcine) (Heparin) 5,000 units SC Q8 [facility]; Protocol Last Admin: 08/23/18 10:45 Dose: Not Given Folic Acid 1 mg/ Sodium (Chloride) 100.2 mls @ 60 mls/hr IVPB DAILY [facility] Last Admin: 08/23/18 10:44 Dose: 60 mls/hr Vancomycin HCl 750 mg/ Sodium (Chloride) 250 mls @ 166.667 mls/hr IVPB QOTHERDAY [facility]; Protocol Last Admin: 08/23/18 10:47 Dose: 166.667 mls/hr Piperacillin Sod/Tazobactam (Sod 2.25 gm/ Dextrose) 100 mls @ 100 mls/hr IVPB Q8 [facility]; Protocol Last Admin: 08/23/18 16:58 Dose: 100 mls/hr Dextrose/Sodium Chloride (Dextrose 5%/0.45% Ns 1000 Ml) 1,000 mls @ 60 mls/hr IV .[id number] [facility] Stop: 08/24/18 10:43 Last Admin: 08/23/18 11:00 Dose: 60 mls/hr Morphine Sulfate (Morphine) 1 mg IVP Q4 PRN PRN Reason: Pain, severe (8-10) Last Admin: 08/22/18 21:30 Dose: 1 mg Thiamine HCl (Vitamin B1 Inj) 100 mg IV DAILY [facility] Last Admin: 08/23/18 10:46 Dose: 100 mg - Labs Labs: 08/22/18 16:06 08/22/18 16:06 PT 12.7 Seconds (9.8-13.1) 08/16/18 18:57 INR 1.1 08/16/18 18:57 APTT 34.6 Seconds (25.6-37.1) 08/16/18 18:57 Assessment and Plan (1) Sepsis Status: Acute (2) Acute renal failure Status: Acute (3) Altered mental state Status: Acute (4) Hypernatremia Status: Acute (5) Altered mental status Status: Acute
[2018-08-23] MEDS ORDERED: Sodium Chloride 0.9% 500 ML IV ONE (21:19)
[2018-08-24 00:24] LABS: ABG ALLEN TEST YES; ARTERIAL BLOOD GAS HCO3 14.7 mmol/L (21-28); ARTERIAL BLOOD GAS HEMOGLOBIN 13.4 g/dL (11.7-17.4); ARTERIAL BLOOD GAS O2 CAPACITY 18.1 mL/dL (16-24); ARTERIAL BLOOD GAS O2 SAT 99.3 % (95-98); ARTERIAL BLOOD GAS PCO2 23 mm/Hg (35-45); ARTERIAL BLOOD GAS PO2 89 mm/Hg (80-100)
[2018-08-24] MEDS: WATER IVPB SCH ×3 (00:36→18:12)
[2018-08-24] MEDS: PIPERACILLIN IVPB SCH ×3 (00:36→18:12)
[2018-08-24] MEDS: DEXTROSE 5% IVPB SCH ×3 (00:36→18:12)
[2018-08-24] MEDS: TAZOBACT IVPB SCH ×3 (00:36→18:12)
--- NOTE | 2018-08-24 00:58 | CP.PCM.PN ---
Subjective - Date & Time of Evaluation Date of Evaluation: 08/24/18 Time of Evaluation: 00:59 - Subjective Subjective: Reason for consult: Request from Attending to evaluate low blood pressure The patient was seen and examined in the Telemetry unit. The Hx was obtained from review of the Medical records, Radiological and laboratory records. HPI: This is a 73 years old male with hx of Dementia, admitted from the [facility] to the [facility] on 08/16/18 with elevated creatinine and Blood Urine Nitrogen and low blood pressure. He was diagnosed with Acute renal failure, Hypernatremia and a Metabolic encephalopathy. In hospital CT ab domen/Pelvis showed massive Ascites with suspect neoplasm at the left hepatic lobe. Tonight his SBP decreased to 70s and I was called to evaluate him. On this exam his BP is 93/60mmHg PMH: ISAURO; AMS PSH: Unknown Surgical hx because of patient's poor communication SH: Alcohol abuse; No illegal drug use; No smoking ; reside at [facility] FH: Unknown Family Hx Exam: General; The patient is awake and alert, coughing with mild respiratory distress Resp: Coarse crackles on inspiration and expiration at both lung voss CVS: S1 S2 RRR Abdomen: Firm, decrease bowel sounds, mild tenderness on palpation, no rebound tenderness EXT: 1+ pitting edema at both lower extremities Neuro: Non focal CXR: bilateral pleural effusion with bibasal interstitial infiltrates ABG: pH 7.30/ 23/89/14 O2Sat 95% A&P #. Hypotension probably secondary to intervascular Hypovolemia. at this exam the BP was 93/60mmHg. The Patient is on a low dose IV fluid of d5/0.45NS at 40mls/Hr. I will continue this rate. I obtained a consent for central line from next of kin Margaretjulio Machado. This is for if necessary to give pressors. - Consults recommended Midodrine and to avoid diuretics if necessary #. Massive Ascites with abdominal discomfort. - Consults recommended Paracentesis #. Hypernatremia Continue Hypotonic IV Fluids #. Suspect Neoplasm in the Liver as per CT abdomen/Pelvis - hem/Onc on consult #. Dementia with added Metabolic encephalopathy - Treat Renal failure, Ascites and Hypernatremia At Present the patient could remain on the Telemetry Unit and continue treatment. time 40mins for examination, radiological review,laboratory review, speaking wi th the family member and documentation. Prince Martin MD Objective - Vital Signs/Intake and Output Vital Signs (last 24 hours): Temp Pulse Resp BP Pulse Ox 97.3 F L 60 16 99/58 L 100 08/23/18 19:37 08/23/18 19:37 08/23/18 19:37 08/23/18 15:57 08/23/18 19:37 Intake and Output: 08/23/18 08/24/18 18:59 06:59 Intake Total 2250 Output Total 275 Balance 1974 - Medications Medications: Current Medications Bacitracin (Bacitracin) 1 ea TOP BID [facility] Last Admin: 08/23/18 16:58 Dose: 1 ea Heparin Sodium (Porcine) (Heparin) 5,000 units SC Q8 [facility]; Protocol Last Admin: 08/23/18 10:45 Dose: Not Given Folic Acid 1 mg/ Sodium (Chloride) 100.2 mls @ 60 mls/hr IVPB DAILY [facility] Last Admin: 08/23/18 10:44 Dose: 60 mls/hr Vancomycin HCl 750 mg/ Sodium (Chloride) 250 mls @ 166.667 mls/hr IVPB QOTHERDAY [facility]; Protocol Last Admin: 08/23/18 10:47 Dose: 166.667 mls/hr Piperacillin Sod/Tazobactam (Sod 2.25 gm/ Dextrose) 100 mls @ 100 mls/hr IVPB Q8 [facility]; Protocol Last Admin: 08/24/18 00:36 Dose: 100 mls/hr Dextrose/Sodium Chloride (Dextrose 5%/0.45% Ns 1000 Ml) 1,000 mls @ 60 mls/hr IV .[id number] [facility] Stop: 08/24/18 10:43 Last Admin: 08/23/18 11:00 Dose: 60 mls/hr Morphine Sulfate (Morphine) 1 mg IVP Q4 PRN PRN Reason: Pain, severe (8-10) Last Admin: 08/22/18 21:30 Dose: 1 mg Thiamine HCl (Vitamin B1 Inj) 100 mg IV DAILY [facility] Last Admin: 08/23/18 10:46 Dose: 100 mg - Labs Labs: 08/22/18 16:06 08/22/18 16:06 PT 12.7 Seconds (9.8-13.1) 08/16/18 18:57 INR 1.1 08/16/18 18:57 APTT 34.6 Seconds (25.6-37.1) 08/16/18 18:57
[2018-08-24] MEDS: Dextrose 5%/0.45% NS 1,000 ML IV SCH (05:32)
--- NOTE | 2018-08-24 07:30 | CP.PCM.PN ---
Subjective - Date & Time of Evaluation Date of Evaluation: 08/23/18 Time of Evaluation: 13:55 - Subjective Subjective: Seen and examined at the bed side. Acute sick looking and unable to obtain history due to AMS.Patient has become Hypotensive to SBP 80's and IVF Bolus is ordered. I have spoken to the next of Kin about the CT finding of Most Likely to be Pancreatic CA with Mets to the Liver after D/w the License Distributor/Oncologist, and Informed her about the Poor Prognosis. Objective - Vital Signs/Intake and Output Vital Signs (last 24 hours): Temp Pulse Resp BP Pulse Ox 97.8 F 75 16 93/61 L 95 08/24/18 05:00 08/24/18 05:00 08/24/18 05:00 08/24/18 05:00 08/24/18 05:00 Intake and Output: 08/24/18 08/24/18 06:59 18:59 Intake Total 930 Output Total 55 Balance 875 - Medications Medications: Current Medications Bacitracin (Bacitracin) 1 ea TOP BID [facility] Last Admin: 08/23/18 16:58 Dose: 1 ea Heparin Sodium (Porcine) (Heparin) 5,000 units SC Q8 [facility]; Protocol Last Admin: 08/23/18 10:45 Dose: Not Given Folic Acid 1 mg/ Sodium (Chloride) 100.2 mls @ 60 mls/hr IVPB DAILY [facility] Last Admin: 08/23/18 10:44 Dose: 60 mls/hr Vancomycin HCl 750 mg/ Sodium (Chloride) 250 mls @ 166.667 mls/hr IVPB QOTHERDAY [facility]; Protocol Last Admin: 08/23/18 10:47 Dose: 166.667 mls/hr Piperacillin Sod/Tazobactam (Sod 2.25 gm/ Dextrose) 100 mls @ 100 mls/hr IVPB Q8 [facility]; Protocol Last Admin: 08/24/18 00:36 Dose: 100 mls/hr Dextrose/Sodium Chloride (Dextrose 5%/0.45% Ns 1000 Ml) 1,000 mls @ 60 mls/hr IV .[id number] [facility] Stop: 08/24/18 10:43 Last Admin: 08/24/18 05:32 Dose: Not Given Morphine Sulfate (Morphine) 1 mg IVP Q4 PRN PRN Reason: Pain, severe (8-10) Last Admin: 08/24/18 01:49 Dose: 1 mg Thiamine HCl (Vitamin B1 Inj) 100 mg IV DAILY [facility] Last Admin: 08/23/18 10:46 Dose: 100 mg - Labs Labs: 08/22/18 16:06 08/22/18 16:06 PT 12.7 Seconds (9.8-13.1) 08/16/18 18:57 INR 1.1 08/16/18 18:57 APTT 34.6 Seconds (25.6-37.1) 08/16/18 18:57 - Constitutional Appears: In Acute Distress, Chronically Ill - Head Exam Head Exam: ATRAUMATIC, NORMAL INSPECTION, NORMOCEPHALIC - Eye Exam Eye Exam: PERRL Pupil Exam: NORMAL ACCOMODATION, PERRL - ENT Exam ENT Exam: Mucous Membranes Moist, Normal Exam - Neck Exam Neck Exam: Full ROM, Normal Inspection. absent: Lymphadenopathy - Respiratory Exam Respiratory Exam: Clear to Ausculation Bilateral, NORMAL BREATHING PATTERN - Cardiovascular Exam Cardiovascular Exam: REGULAR RHYTHM, +S1, +S2. absent: Murmur - GI/Abdominal Exam GI & Abdominal Exam: Distended, Firm, Guarding. absent: Tenderness - Extremities Exam Extremities Exam: Full ROM, Normal Capillary Refill, Normal Inspection, Pedal Edema. absent: Joint Swelling - Back Exam Back Exam: NORMAL INSPECTION - Neurological Exam Neurological Exam: Abnormal Gait, Altered, Awake - Psychiatric Exam Psychiatric exam: Flat Affect - Skin Skin Exam: Dry, Intact, Normal Color, Warm Assessment and Plan (1) Sepsis Assessment & Plan: Hypotension Status: Acute (2) Acute renal failure Status: Acute (3) Altered mental state Status: Acute (4) Hypernatremia Status: Acute (5) Malignancy Assessment & Plan: Most likely Stage IV Pancreatic Ca Large abdominal and Pelvic Ascites Oncologist on board Poor Prognosis Status: Acute
--- NOTE | 2018-08-24 08:32 | RAD ---
Date of service: 08/23/2018 HISTORY: Pulmonary congestion COMPARISON: Portable chest 08/17/2018. FINDINGS: LUNGS: Diminished history effort identified. No significant improvement in hazy density at the mid to inferior lung zones bilaterally. PLEURA: No significant pleural effusion identified, no pneumothorax apparent. CARDIOVASCULAR: Moderate pulmonary vascular congestion pattern persists. Cardiac size remains normal. OSSEOUS STRUCTURES: No significant abnormalities. VISUALIZED UPPER ABDOMEN: Normal. OTHER FINDINGS: None. IMPRESSION: Persistent moderate pulmonary vascular congestion. Diminished inspiratory volume.
--- NOTE | 2018-08-24 10:06 | CP.PCM.PN ---
Subjective - Date & Time of Evaluation Date of Evaluation: 08/24/18 Time of Evaluation: 10:06 - Subjective Subjective: ID Note- Pt. seen and examined today. awake but with dementia. remains afebrile Objective - Vital Signs/Intake and Output Vital Signs (last 24 hours): Temp Pulse Resp BP Pulse Ox 97.9 F 70 18 81/54 L 95 08/24/18 09:24 08/24/18 09:24 08/24/18 09:24 08/24/18 09:24 08/24/18 09:24 Intake and Output: 08/24/18 08/24/18 06:59 18:59 Intake Total 930 Output Total 55 Balance 875 - Medications Medications: Current Medications Albumin Human (Albumin Human 25% (12.5 Gm/50 Ml)) 12.5 gm IV Q5H [facility] Stop: 08/25/18 04:31 Bacitracin (Bacitracin) 1 ea TOP BID JAMIE Last Admin: 08/23/18 16:58 Dose: 1 ea Heparin Sodium (Porcine) (Heparin) 5,000 units SC Q8 JAMIE; Protocol Last Admin: 08/23/18 10:45 Dose: Not Given Folic Acid 1 mg/ Sodium (Chloride) 100.2 mls @ 60 mls/hr IVPB DAILY [facility] Last Admin: 08/23/18 10:44 Dose: 60 mls/hr Piperacillin Sod/Tazobactam (Sod 2.25 gm/ Dextrose) 100 mls @ 100 mls/hr IVPB Q8 JAMIE; Protocol Last Admin: 08/24/18 00:36 Dose: 100 mls/hr Sodium Bicarbonate 50 meq/ (Dextrose) 1,050 mls @ 100 mls/hr IV .[id number] [facility] Stop: 08/25/18 08:22 Midodrine (Proamatine) 10 mg PO Q8H [facility] Morphine Sulfate (Morphine) 1 mg IVP Q4 PRN PRN Reason: Pain, severe (8-10) Last Admin: 08/24/18 01:49 Dose: 1 mg Thiamine HCl (Vitamin B1 Inj) 100 mg IV DAILY [facility] Last Admin: 08/23/18 10:46 Dose: 100 mg - Labs Labs: - Additional Findings Additional findings: - Constitutional Appears: Chronically Ill - Head Exam Head Exam: ATRAUMATIC - ENT Exam Additional comments: dry oral mucosa - Neck Exam Neck exam: Positive for: Full Rom - Respiratory Exam Respiratory Exam: NORMAL BREATHING PATTERN Additional comments: crackles at right base no wheezing - Cardiovascular Exam Cardiovascular Exam: RRR, +S1, +S2 - GI/Abdominal Exam GI & Abdominal Exam: Distended Additional comments: hypoactive BS NT - Extremities Exam Additional comments: No edema b/l LE - Neurological Exam Additional comments: awake with baseline dementia Laboratory Results - last 72 hr 08/21/18 08/22/18 08/22/18 18:33 05:55 16:06 WBC 13.1 H RBC 4.62 Hgb 13.4 Hct 40.5 MCV 87.7 MCH 28.9 MCHC 33.0 RDW 16.8 H Plt Count 85 L MPV 11.0 Neut % (Auto) 80.1 H Lymph % (Auto) 9.5 L Price % (Auto) 8.6 Eos % (Auto) 1.2 Baso % (Auto) 0.6 Neut # (Auto) 10.5 H Lymph # (Auto) 1.2 Price # (Auto) 1.1 H Eos # (Auto) 0.2 Baso # (Auto) 0.1 Neutrophils % (Manual) 80 H Band Neutrophils % 1 Lymphocytes % (Manual) 10 L Monocytes % (Manual) 8 Metamyelocytes % 1 H Platelet Estimate Slightly decreased L pCO2 pO2 HCO3 ABG pH ABG Total CO2 ABG O2 Saturation ABG O2 Content ABG Base Excess ABG Hemoglobin ABG Carboxyhemoglobin POC ABG HHb (Measured) ABG Methemoglobin ABG O2 Capacity Pedro Test A-a O2 Difference Hgb O2 Saturation FiO2 Sodium Potassium Chloride Carbon Dioxide Anion Gap BUN Creatinine Est GFR ( Amer) Est GFR (Non-Af Amer) Random Glucose Lactic Acid Calcium Phosphorus Magnesium Total Bilirubin AST ALT Alkaline Phosphatase Total Protein Albumin Globulin Albumin/Globulin Ratio Ur Random Creatinine 222.5 Ur Random Sodium 16 Vancomycin Trough 7.7 08/22/18 08/22/18 08/23/18 16:06 16:06 00:04 WBC RBC Hgb Hct MCV MCH MCHC RDW Plt Count MPV Neut % (Auto) Lymph % (Auto) Price % (Auto) Eos % (Auto) Baso % (Auto) Neut # (Auto) Lymph # (Auto) Price # (Auto) Eos # (Auto) Baso # (Auto) Neutrophils % (Manual) Band Neutrophils % Lymphocytes % (Manual) Monocytes % (Manual) Metamyelocytes % Platelet Estimate pCO2 23 L pO2 89 HCO3 14.7 L ABG pH 7.30 L ABG Total CO2 12.0 L ABG O2 Saturation 99.3 H ABG O2 Content 18.0 ABG Base Excess -13.1 L ABG Hemoglobin 13.4 ABG Carboxyhemoglobin 2.5 H POC ABG HHb (Measured) 0.7 ABG Methemoglobin 1.7 ABG O2 Capacity 18.1 Pedro Test Yes A-a O2 Difference 110.0 Hgb O2 Saturation 95.1 FiO2 32.0 Sodium 151 H Potassium 3.4 L Chloride 130 H Carbon Dioxide 13 L Anion Gap 11 BUN 62 H Creatinine 2.7 H Est GFR ( Amer) 28 Est GFR (Non-Af Amer) 23 Random Glucose 116 H Lactic Acid 1.3 Calcium 8.6 Phosphorus 5.1 H Magnesium 2.3 Total Bilirubin 1.6 H AST 65 H ALT 33 Alkaline Phosphatase 196 H Total Protein 6.4 Albumin 2.2 L Globulin 4.2 H Albumin/Globulin Ratio 0.5 L Ur Random Creatinine Ur Random Sodium Vancomycin Trough 08/24/18 08/24/18 10:38 10:38 WBC 13.4 H RBC 4.71 Hgb 13.7 Hct 40.6 MCV 86.3 MCH 29.0 MCHC 33.6 RDW 17.0 H Plt Count 93 L MPV Neut % (Auto) Lymph % (Auto) Price % (Auto) Eos % (Auto) Baso % (Auto) Neut # (Auto) Lymph # (Auto) Price # (Auto) Eos # (Auto) Baso # (Auto) Neutrophils % (Manual) Band Neutrophils % Lymphocytes % (Manual) Monocytes % (Manual) Metamyelocytes % Platelet Estimate pCO2 pO2 HCO3 ABG pH ABG Total CO2 ABG O2 Saturation ABG O2 Content ABG Base Excess ABG Hemoglobin ABG Carboxyhemoglobin POC ABG HHb (Measured) ABG Methemoglobin ABG O2 Capacity Pedro Test A-a O2 Difference Hgb O2 Saturation FiO2 Sodium 151 H Potassium 3.9 Chloride 126 H Carbon Dioxide 14 L Anion Gap 15 BUN 65 H Creatinine 3.4 H Est GFR ( Amer) 22 Est GFR (Non-Af Amer) 18 Random Glucose 83 Lactic Acid Calcium 8.7 Phosphorus Magnesium Total Bilirubin AST ALT Alkaline Phosphatase Total Protein Albumin Globulin Albumin/Globulin Ratio Ur Random Creatinine Ur Random Sodium Vancomycin Trough Microbiology 08/19/18 11:40 Blood-Venous Blood Culture - Final NO GROWTH AFTER 5 DAYS 08/19/18 11:40 Blood-Venous Gram Stain - Final TEST NOT PERFORMED 08/19/18 11:40 Blood-Venous Blood Culture - Final NO GROWTH AFTER 5 DAYS 08/19/18 11:40 Blood-Venous Gram Stain - Final TEST NOT PERFORMED 08/16/18 19:58 Blood-Venous Blood Culture - Final NO GROWTH AFTER 5 DAYS 08/16/18 19:58 Blood-Venous Gram Stain - Final TEST NOT PERFORMED 08/16/18 19:02 Blood-Venous Blood Culture - Final NO GROWTH AFTER 5 DAYS 08/16/18 19:02 Blood-Venous Gram Stain - Final TEST NOT PERFORMED 08/18/18 17:20 Naris MRSA Culture (Admit) - Final MRSA NOT DETECTED 08/16/18 21:14 Urine,Clean Catch Urine Culture - Final No Growth (<1,000 CFU/ML) Accession No. : [id number] Patient Name / ID : MARY BEACH / [id number] Exam Date : 08/23/2018 23:45:53 ( Approved ) Study Comment : Sex / Age : M / 73Y Creator : Scot Cruz MD Dictator : Scot Cruz MD House Cleaner Supervisor : Wool Sacker : Scot Cruz MD Approver2 : Report Date : 08/24/2018 08:30:42 My Comment : Date of service: 08/23/2018 HISTORY: Pulmonary congestion COMPARISON: Portable chest 08/17/2018. FINDINGS: LUNGS: Diminished history effort identified. No significant improvement in hazy density at the mid to inferior lung zones bilaterally. PLEURA: No significant pleural effusion identified, no pneumothorax apparent. CARDIOVASCULAR: Moderate pulmonary vascular congestion pattern persists. Cardiac size remains normal. OSSEOUS STRUCTURES: No significant abnormalities. VISUALIZED UPPER ABDOMEN: Normal. OTHER FINDINGS: None. IMPRESSION: Persistent moderate pulmonary vascular congestion. Diminished inspiratory volume. Assessment and Plan (1) Acute renal failure Status: Acute (2) Weakness Status: Acute (3) Hypothermia Status: Acute (4) Hypoventilation Status: Acute - Assessment and Plan (Free Text) Assessment: A/P- 73 year old male from [place] admitted with weakness, poor oral intake and found to be in Acute renal insufficiency and hypothermi hypotensive. Pt.has remained afebrile . minimal new leukocytosis thrombocytopenia CXR report - pulmonary vascular congestion and trace pleural effusion as per report. blood cx- neg x 4 TTE- as per report read by tele outsole leveler- ? tricuspid valve vegetation CT abd/pelvis- hepatic mass and ? 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 plan- in light of this ? TR veronica had started pt. on empiric IV vanco (renal dose) pending further results. in light of thrombocytopenia and increase in renal insufficiency advise to hold vanco for now ( eventhough normal trough level). place on daptomycin empirically for now pending cardiology input for second look at TTE. doubt IE as pt. afebrile, and all blood cx negative. advise to get second TTE or have second look at the original echo. continue empiric IV zosyn as well since pt. was recently d/c from hospital and to cover for Hospital acquired pathogens. new Ct abd/ct results noted.oncology note noted. All above d/w ASSISTANT BOILER OPERATOR luis on tele floor.
[2018-08-24 10:44] LABS: HEMOGLOBIN 13.7 g/dL (12.0-18.0); MEAN CELL VOLUME 86.3 fl (80.0-94.0); MEAN CORPUSCULAR HGB CONC 33.6 g/dL (33.0-37.0); RBC 4.71 Mil/uL (4.40-5.90); WHITE BLOOD COUNT 13.4 K/uL (4.8-10.8)
[2018-08-24] MEDS: Bacitracin 500 Units/gm Oint Foilpak UD TOP SCH ×2 (10:45→17:56)
[2018-08-24] MEDS: Thiamine 100 mg/ml Inj IV SCH (10:52)
[2018-08-24] MEDS: Sodium Bicarbonate 8.4% 50 MEQ in Dextrose 5% In Water 1,000 ML IV SCH ×2 (11:03→22:37)
[2018-08-24] MEDS: Albumin Human 25% (12.5 gm/50 ml) IV SCH ×4 (11:04→22:37)
[2018-08-24 11:14] LABS: CALCIUM 8.7 mg/dL (8.4-10.2)
[2018-08-24] MEDS ORDERED: Chlorhexidine Gluconate 1 APPL/PKT TP ONE (12:29)
[2018-08-24] MEDS: DAPTOmycin 500 MG in Sodium Chloride 0.9% 100 ML IV SCH (17:57)
--- NOTE | 2018-08-24 19:09 | CP.PCM.CON ---
History of Present Illness - History of Present Illness History of Present Illness: 73 yo male with h/o AMS and for many years consumption of large amounts of alcohol. Patient was admitted with increasing abdominal distention and weakness. CT demonstrated large mass adjacent to left lobe of liver and mural thickening of 2nd portion of duodenum. Also present was large amount of ascites Review of Systems - Review of Systems Systems not reviewed;Unavailable: Dementia Past Patient History - Infectious Disease Hx of Infectious Diseases: None - Past Medical History & Family History Past Medical History?: Yes Past Family History: Reviewed and not pertinent - Past Social History Smoking Status: Unknown If Ever Smoked Chewing Tobacco Use: No Cigar Use: No Alcohol: None Drugs: Denies Home Situation {Lives}: Fdc - CARDIAC Hx Cardiac Disorders: No - PULMONARY Hx Respiratory Disorders: No - NEUROLOGICAL Hx Neurological Disorder: Yes - HEENT Hx HEENT Problems: No - RENAL Hx Renal Failure: Yes Other/Comment: Acute Kidney injury - HEMATOLOGICAL/ONCOLOGICAL Hx Blood Disorders: No - INTEGUMENTARY Hx Dermatological Problems: No - MUSCULOSKELETAL/RHEUMATOLOGICAL Hx Musculoskeletal Disorders: No - GASTROINTESTINAL Hx Gastrointestinal Disorders: No - GENITOURINARY/GYNECOLOGICAL Hx Genitourinary Disorders: No - PSYCHIATRIC Hx Psychophysiologic Disorder: No - SURGICAL HISTORY Hx Surgeries: No (Unknown) - ANESTHESIA Hx Anesthesia: No (Unknown) Meds Allergies/Adverse Reactions: Allergies Allergy/AdvReac Type Severity Reaction Status Date / Time No Known Allergies Allergy Verified 08/06/18 11:02 - Medications Medications: Current Medications Albumin Human (Albumin Human 25% (12.5 Gm/50 Ml)) 12.5 gm IV Q5H [facility] Stop: 08/25/18 04:31 Last Admin: 08/24/18 17:48 Dose: 12.5 gm Bacitracin (Bacitracin) 1 ea TOP BID [facility] Last Admin: 08/24/18 17:56 Dose: 1 ea Heparin Sodium (Porcine) (Heparin) 5,000 units SC Q8 JAMIE; Protocol Last Admin: 08/23/18 10:45 Dose: Not Given Folic Acid 1 mg/ Sodium (Chloride) 100.2 mls @ 60 mls/hr IVPB DAILY [facility] Last Admin: 08/24/18 10:45 Dose: 60 mls/hr Sodium Bicarbonate 50 meq/ (Dextrose) 1,050 mls @ 100 mls/hr IV .[id number] [facility] Stop: 08/25/18 08:22 Last Admin: 08/24/18 11:03 Dose: 100 mls/hr Piperacillin Sod/Tazobactam (Sod 2.25 gm/ Dextrose) 100 mls @ 100 mls/hr IVPB Q8 JAMIE; Protocol Last Admin: 08/24/18 17:58 Dose: 100 mls/hr Daptomycin 500 mg/ Sodium (Chloride) 100 mls @ 100 mls/hr IV Q48H JAMIE; Protocol Stop: 08/29/18 14:16 Last Admin: 08/24/18 17:57 Dose: 100 mls/hr Midodrine (Proamatine) 10 mg PO Q8H [facility]IE Last Admin: 08/24/18 17:59 Dose: 10 mg Thiamine HCl (Vitamin B1 Inj) 100 mg IV DAILY [facility] Last Admin: 08/24/18 10:52 Dose: 100 mg Physical Exam - Constitutional Appears: Older Than Stated Age, Cachectic - Head Exam Head Exam: ATRAUMATIC - Eye Exam Eye Exam: PERRL - ENT Exam ENT Exam: Mucous Membranes Moist - Neck Exam Neck exam: Positive for: Normal Inspection - Respiratory Exam Respiratory Exam: Clear to Auscultation Bilateral - Cardiovascular Exam Cardiovascular Exam: +S1, +S2 - GI/Abdominal Exam GI & Abdominal Exam: Distended, Firm, Normal Bowel Sounds Results - Vital Signs Recent Vital Signs: Last Vital Signs Temp 96.3 F L 08/24/18 12:00 Pulse 65 08/24/18 15:54 Resp 17 08/24/18 15:54 BP 94/60 L 08/24/18 15:54 Pulse Ox 100 08/24/18 15:54 - Labs Result Diagrams: 08/24/18 10:38 08/24/18 10:38 Labs: Laboratory Results - last 24 hr 08/23/18 08/24/18 08/24/18 00:04 10:38 10:38 WBC 13.4 H RBC 4.71 Hgb 13.7 Hct 40.6 MCV 86.3 MCH 29.0 MCHC 33.6 RDW 17.0 H Plt Count 93 L pCO2 23 L pO2 89 HCO3 14.7 L ABG pH 7.30 L ABG Total CO2 12.0 L ABG O2 Saturation 99.3 H ABG O2 Content 18.0 ABG Base Excess -13.1 L ABG Hemoglobin 13.4 ABG Carboxyhemoglobin 2.5 H POC ABG HHb (Measured) 0.7 ABG Methemoglobin 1.7 ABG O2 Capacity 18.1 Pedro Test Yes A-a O2 Difference 110.0 Hgb O2 Saturation 95.1 FiO2 32.0 Sodium 151 H Potassium 3.9 Chloride 126 H Carbon Dioxide 14 L Anion Gap 15 BUN 65 H Creatinine 3.4 H Est GFR ( Amer) 22 Est GFR (Non-Af Amer) 18 Random Glucose 83 Calcium 8.7 Assessment & Plan (1) Malignancy Assessment and Plan: Very high CA 19-9 in conjunction with mass seen on CT and most c/w pancreatic malignancy. Also has high AFP and lesion adjacent to liver which could represent primary or secondary liver neoplasm. Currently patient's BP is low and renal functions are deteriorating. Agree with oncology that biopsy not needed if cancer treatment is not a viable option. Prognosis is grim. Status: Acute
--- NOTE | 2018-08-24 20:54 | CP.PCM.PN ---
Subjective - Date & Time of Evaluation Date of Evaluation: 08/24/18 Time of Evaluation: 17:25 - Subjective Subjective: Seen and examined at the bed side. Patient further declined. Hypothermia to 94 degree F. Parcentesis differed due to patient's poor condition. GI also declined to do EGD/ERCP and biopy due poor general condition. After D/c the Niece, ICU down graded the patient after consult. Also the NOK decided DNR/DNI. Patient has been bolused for Hypotension. Objective - Vital Signs/Intake and Output Vital Signs (last 24 hours): Temp Pulse Resp BP Pulse Ox 96.3 F L 63 16 99/61 L 100 08/24/18 12:00 08/24/18 20:39 08/24/18 20:39 08/24/18 20:39 08/24/18 20:39 Intake and Output: 08/24/18 08/25/18 18:59 06:59 Intake Total 1670 Output Total 50 Balance 1620 - Medications Medications: Current Medications Albumin Human (Albumin Human 25% (12.5 Gm/50 Ml)) 12.5 gm IV Q5H [facility] Stop: 08/25/18 04:31 Last Admin: 08/24/18 17:48 Dose: 12.5 gm Bacitracin (Bacitracin) 1 ea TOP BID JAMIE Last Admin: 08/24/18 17:56 Dose: 1 ea Heparin Sodium (Porcine) (Heparin) 5,000 units SC Q8 JAMIE; Protocol Last Admin: 08/23/18 10:45 Dose: Not Given Folic Acid 1 mg/ Sodium (Chloride) 100.2 mls @ 60 mls/hr IVPB DAILY [facility] Last Admin: 08/24/18 10:45 Dose: 60 mls/hr Sodium Bicarbonate 50 meq/ (Dextrose) 1,050 mls @ 100 mls/hr IV .[id number] [facility] Stop: 08/25/18 08:22 Last Admin: 08/24/18 11:03 Dose: 100 mls/hr Piperacillin Sod/Tazobactam (Sod 2.25 gm/ Dextrose) 100 mls @ 100 mls/hr IVPB Q8 JAMIE; Protocol Last Admin: 08/24/18 17:58 Dose: 100 mls/hr Daptomycin 500 mg/ Sodium (Chloride) 100 mls @ 100 mls/hr IV Q48H [facility]AMIE; Protocol Stop: 10/13/18 14:16 Last Admin: 08/24/18 17:57 Dose: 100 mls/hr Midodrine (Proamatine) 10 mg PO Q8H [facility] Last Admin: 08/24/18 17:59 Dose: 10 mg Thiamine HCl (Vitamin B1 Inj) 100 mg IV DAILY [facility] Last Admin: 08/24/18 10:52 Dose: 100 mg - Labs Labs: 08/24/18 10:38 08/24/18 10:38 PT 12.7 Seconds (9.8-13.1) 08/16/18 18:57 INR 1.1 08/16/18 18:57 APTT 34.6 Seconds (25.6-37.1) 08/16/18 18:57 Assessment and Plan (1) Acute renal failure Status: Acute (2) Altered mental state Status: Acute (3) Hypernatremia Status: Acute (4) Malignancy Status: Acute (5) Severe sepsis Assessment & Plan: Hypothermia Status: Acute - Assessment and Plan (Free Text) Plan: Poor Prognosis IVF IV Zosyn and Vancomycin Bear hagger to Warm him >96 degree, and D/c for T>97 Pain Medication PRN ICU Consulted, and down graded after Dr. Ramires discussed with the NOK and family Agreed DNR/DNI I have confirmed with Miss Robles. DNR Isabela Entered. GI, Hem/Oncologist, Nephro and ID Onboard.
[2018-08-24 21:49] LABS: CREATININE, RANDOM URINE 257.2 mg/dL
--- NOTE | 2018-08-24 22:02 | CON ---
DATE: 08/24/2018 PULMONARY CONSULTATION HISTORY OF PRESENT ILLNESS: Mr. Herbert Valdez is a 73-year-old male who was referred by Dr. Martin for pulmonary consultation. The patient is unable to give any history. He is admitted with dementia and elevated BUN and creatinine and altered mental status. He was found to have ascites and hyponatremia and a CAT scan of the abdomen and pelvis that showed moderate ascites with hepatic and pancreatic head mass. The patient is tentatively diagnosed to have pancreatic carcinoma with metastasis and clinically appears very sick. He is unable to give any history. PHYSICAL EXAMINATION: GENERAL: The patient is awake, responsive to verbal commands just by saying "yes" or "no" to questions. He appears very emaciated and cachectic. VITAL SIGNS: Blood pressure of 93/61 with a pulse of 75, respiratory rate 16, is afebrile, and O2 saturations 95% on nasal cannula oxygen. HEENT: Pupils are reactive to light. [place] sclerae are noted. Mouth shows fair hygiene. NECK: JVP slightly limited. LUNGS: Poor aeration bilaterally with scattered bilateral rales. HEART: S1 and S2. ABDOMEN: Distended with ascites. EXTREMITIES: Trace pedal edema. CENTRAL NERVOUS SYSTEM: I was unable to examine him appropriately because of the patient's mental status. LABORATORY DATA: WBC 13.1, hemoglobin 13.4, platelet count 85,000. Sodium 151, potassium 3.4, BUN 62, creatinine 2.7. AST 65 and ALT 33. Arterial blood gases: The pH is 7.3, pCO2 of 23, pO2 of 89, this is on 92% FiO2. Chest x-ray shows bilateral pulmonary congestion. No real infiltrate identified. IMPRESSION AND PLAN: A 73-year-old male with what appears to be pancreatic cancer with possible metastasis and severe ascites and cachexia, referred for evaluation of pulmonary congestion. Pulmonary congestion appears to be secondary to intra-abdominal pathology with sympathetic effusion and sympathetic pulmonary congestion. No real pulmonary intervention for now.. Supportive care is suggested at present. Continue oxygen therapy. Palliative care might be in order. No further pulmonary intervention for now. Thaddeus Lorenz MD [facility] # [id number] MICHELLE
[2018-08-25] MEDS: WATER IVPB SCH ×3 (00:52→17:22)
[2018-08-25] MEDS: TAZOBACT IVPB SCH ×3 (00:52→17:22)
[2018-08-25] MEDS: PIPERACILLIN IVPB SCH ×3 (00:52→17:22)
[2018-08-25] MEDS: DEXTROSE 5% IVPB SCH ×3 (00:52→17:22)
[2018-08-25] MEDS: Sodium Bicarbonate 8.4% 50 MEQ in Dextrose 5% In Water 1,000 ML IV SCH (04:33)
[2018-08-25] MEDS: Albumin Human 25% (12.5 gm/50 ml) IV SCH ×2 (04:34→19:58)
[2018-08-25 05:33] LABS: BASO # 0.1 K/uL (0.0-0.2); BASO % 0.7 % (0.0-2.0); EOS # 0.2 K/uL (0.0-0.7); EOS % 1.2 % (0.0-4.0); HEMOGLOBIN 11.9 g/dL (12.0-18.0); LYMPH # 1.3 K/uL (1.0-4.3); LYMPH % 9.3 % (20.0-40.0); MEAN CELL VOLUME 87.3 fl (80.0-94.0); MEAN CORPUSCULAR HEMOGLOBIN 28.9 pg (27.0-31.0); MEAN CORPUSCULAR HGB CONC 33.1 g/dL (33.0-37.0); MEAN PLATELET VOLUME 11.1 fl (7.2-11.7); MONO # 0.8 K/uL (0.0-0.8); MONO % 5.5 % (0.0-10.0); NEUT # 11.4 K/uL (1.8-7.0); NEUT % 83.3 % (50.0-75.0); RBC 4.13 Mil/uL (4.40-5.90); RED CELL DISTRIBUTION WIDTH 17.5 % (11.5-14.5); WHITE BLOOD COUNT 13.7 K/uL (4.8-10.8)
[2018-08-25 06:31] LABS: ALB/GLOB RATIO 0.7 (1.0-2.1); ALBUMIN 2.6 g/dL (3.5-5.0); ALT/SGPT 25 U/L (21-72); AST/SGOT 53 U/L (17-59); BLOOD UREA NITROGEN 66 mg/dl (9-20); CALCIUM 8.5 mg/dL (8.4-10.2); GFR NON-AFRICAN AMERICAN 15
--- NOTE | 2018-08-25 07:58 | CP.PCM.PN ---
Subjective - Date & Time of Evaluation Date of Evaluation: 08/24/18 Time of Evaluation: 22:00 - Subjective Subjective: Patient not having much PO intake; made DNR/DNI today; no UO per nursing; Objective - Vital Signs/Intake and Output Vital Signs (last 24 hours): Temp Pulse Resp BP Pulse Ox 96.2 F L 75 20 77/50 L 100 08/25/18 05:01 08/25/18 05:01 08/25/18 05:01 08/25/18 05:01 08/25/18 05:01 Intake and Output: 08/25/18 08/25/18 06:59 18:59 Intake Total 1670 Output Total 50 Balance 1620 - Medications Medications: Current Medications Bacitracin (Bacitracin) 1 ea TOP BID [facility] Last Admin: 08/24/18 17:56 Dose: 1 ea Heparin Sodium (Porcine) (Heparin) 5,000 units SC Q8 JAMIE; Protocol Last Admin: 08/23/18 10:45 Dose: Not Given Folic Acid 1 mg/ Sodium (Chloride) 100.2 mls @ 60 mls/hr IVPB DAILY [facility] Last Admin: 08/24/18 10:45 Dose: 60 mls/hr Piperacillin Sod/Tazobactam (Sod 2.25 gm/ Dextrose) 100 mls @ 100 mls/hr IVPB Q8 JAMIE; Protocol Last Admin: 08/25/18 00:52 Dose: 100 mls/hr Daptomycin 500 mg/ Sodium (Chloride) 100 mls @ 100 mls/hr IV Q48H [facility]AMIE; Protocol Stop: 08/29/18 14:16 Last Admin: 08/24/18 17:57 Dose: 100 mls/hr Sodium Bicarbonate 150 meq/ (Dextrose) 1,150 mls @ 100 mls/hr IV .[id number] [facility] Stop: 08/26/18 07:52 Midodrine (Proamatine) 10 mg PO Q8H [facility] Last Admin: 08/25/18 00:52 Dose: 10 mg Morphine Sulfate (Morphine) 1 mg IVP Q4 PRN PRN Reason: Pain, severe (8-10) Last Admin: 08/25/18 06:48 Dose: 1 mg Thiamine HCl (Vitamin B1 Inj) 100 mg IV DAILY [facility] Last Admin: 08/24/18 10:52 Dose: 100 mg - Labs Labs: 08/25/18 04:15 08/25/18 04:15 PT 12.7 Seconds (9.8-13.1) 08/16/18 18:57 INR 1.1 08/16/18 18:57 APTT 34.6 Seconds (25.6-37.1) 08/16/18 18:57 - Constitutional Appears: Confused, Chronically Ill - Respiratory Exam Respiratory Exam: absent: Respiratory Distress Additional comments: rhonchi present - Cardiovascular Exam Additional comments: muffled heart sounds - GI/Abdominal Exam GI & Abdominal Exam: Distended, Soft - Extremities Exam Additional comments: mild/moderate leg edema; - Neurological Exam Neurological Exam: Awake - Psychiatric Exam Psychiatric exam: absent: Agitated Assessment and Plan (1) ISAURO (acute kidney injury) Assessment & Plan: Oligoanuric renal failure in the setting of severe abd ascites and hypotension, clinically ATN; non-gap metabolic acidosis; hypernatremia noted; overall prognosis is poor with evidence of advanced CA and change of code status today is very reasonable; no urgent indication to initiate HD currently but will likely be needed over the next 24-48 hrs; however, given overall condition, HD is futile and should not be initiated; -restarting IV albumin 25% q5h -starting midodrine 10 mg q8h -should still consider paracentesis is possible; -changing IVF to D5W w/ 50 meq sodium bicarb at 100 cc/hr (will address both acidosis and hypernatremia); Status: Acute (2) Ascites Status: Acute (3) Hypernatremia Status: Acute
[2018-08-25] MEDS: Bacitracin 500 Units/gm Oint Foilpak UD TOP SCH ×2 (09:35→17:15)
[2018-08-25] MEDS: Thiamine 100 mg/ml Inj IV SCH (09:36)
[2018-08-25] MEDS: Sodium Bicarbonate 8.4% 150 MEQ in Dextrose 5% In Water 1,000 ML IV SCH ×3 (12:31→19:56)
--- NOTE | 2018-08-25 15:29 | CP.PCM.PN ---
Subjective - Date & Time of Evaluation Date of Evaluation: 08/25/18 Time of Evaluation: 15:27 - Subjective Subjective: Patient remains unstable with persistent hypotension and decreasing renal functions. Has intrabdominal mass and underlying dementia. His family has decided that he should have DNR status. Objective - Vital Signs/Intake and Output Vital Signs (last 24 hours): Temp Pulse Resp BP Pulse Ox 96.1 F L 71 20 80/50 L 100 08/25/18 12:39 08/25/18 12:39 08/25/18 12:39 08/25/18 12:39 08/25/18 12:39 Intake and Output: 08/25/18 08/25/18 06:59 18:59 Intake Total 1670 Output Total 50 Balance 1620 - Medications Medications: Current Medications Bacitracin (Bacitracin) 1 ea TOP BID [facility] Last Admin: 08/25/18 09:35 Dose: 1 ea Heparin Sodium (Porcine) (Heparin) 5,000 units SC Q8 JAMIE; Protocol Last Admin: 08/23/18 10:45 Dose: Not Given Folic Acid 1 mg/ Sodium (Chloride) 100.2 mls @ 60 mls/hr IVPB DAILY [facility] Last Admin: 08/25/18 12:14 Dose: 60 mls/hr Piperacillin Sod/Tazobactam (Sod 2.25 gm/ Dextrose) 100 mls @ 100 mls/hr IVPB Q8 [facility]AMIE; Protocol Last Admin: 08/25/18 09:39 Dose: 100 mls/hr Daptomycin 500 mg/ Sodium (Chloride) 100 mls @ 100 mls/hr IV Q48H [facility]; Protocol Stop: 08/29/18 14:16 Last Admin: 08/24/18 17:57 Dose: 100 mls/hr Sodium Bicarbonate 150 meq/ (Dextrose) 1,150 mls @ 100 mls/hr IV .[id number] [facility] Stop: 08/26/18 07:52 Last Admin: 08/25/18 12:31 Dose: Not Given Midodrine (Proamatine) 10 mg PO Q8H [facility] Last Admin: 08/25/18 09:35 Dose: 10 mg Morphine Sulfate (Morphine) 1 mg IVP Q4 PRN PRN Reason: Pain, severe (8-10) Last Admin: 08/25/18 06:48 Dose: 1 mg Thiamine HCl (Vitamin B1 Inj) 100 mg IV DAILY [facility] Last Admin: 08/25/18 09:36 Dose: 100 mg - Labs Labs: 08/25/18 04:15 08/25/18 04:15 PT 12.7 Seconds (9.8-13.1) 08/16/18 18:57 INR 1.1 08/16/18 18:57 APTT 34.6 Seconds (25.6-37.1) 08/16/18 18:57 - Head Exam Head Exam: ATRAUMATIC - Eye Exam Eye Exam: Normal appearance Pupil Exam: PERRL - ENT Exam ENT Exam: Mucous Membranes Moist - Neck Exam Neck Exam: Full ROM - Respiratory Exam Respiratory Exam: Clear to Ausculation Bilateral - Cardiovascular Exam Cardiovascular Exam: REGULAR RHYTHM - GI/Abdominal Exam GI & Abdominal Exam: Distended, Firm, Soft Assessment and Plan (1) Malignancy Assessment & Plan: Likely malignant ascites and persistent hypotension. Imaging c/w intraabdominal malignancy. Supportive care. Status: Acute
--- NOTE | 2018-08-25 18:03 | CP.PCM.PN ---
Subjective - Date & Time of Evaluation Date of Evaluation: 08/25/18 Time of Evaluation: 18:02 - Subjective Subjective: ID note- Pt. seen and examined today. pt. remains weak nad hypothermic and hypotensive. Pt. has been made DNR by his family. renal function worsening. Objective - Vital Signs/Intake and Output Vital Signs (last 24 hours): Temp Pulse Resp BP Pulse Ox 96.1 F L 60 18 72/44 L 100 08/25/18 16:20 08/25/18 16:20 08/25/18 16:20 08/25/18 16:20 08/25/18 16:20 Intake and Output: 08/25/18 08/25/18 06:59 18:59 Intake Total 1670 Output Total 50 Balance 1620 - Medications Medications: Current Medications Bacitracin (Bacitracin) 1 ea TOP BID JAMIE Last Admin: 08/25/18 17:15 Dose: 1 ea Heparin Sodium (Porcine) (Heparin) 5,000 units SC Q8 JAMIE; Protocol Last Admin: 08/23/18 10:45 Dose: Not Given Folic Acid 1 mg/ Sodium (Chloride) 100.2 mls @ 60 mls/hr IVPB DAILY JAMIE Last Admin: 08/25/18 12:14 Dose: 60 mls/hr Piperacillin Sod/Tazobactam (Sod 2.25 gm/ Dextrose) 100 mls @ 100 mls/hr IVPB Q8 JAMIE; Protocol Last Admin: 08/25/18 17:22 Dose: 100 mls/hr Daptomycin 500 mg/ Sodium (Chloride) 100 mls @ 100 mls/hr IV Q48H JAMIE; Protocol Stop: 08/29/18 14:16 Last Admin: 08/24/18 17:57 Dose: 100 mls/hr Sodium Bicarbonate 150 meq/ (Dextrose) 1,150 mls @ 100 mls/hr IV .[id number] JAMIE Stop: 08/26/18 07:52 Last Admin: 08/25/18 12:31 Dose: Not Given Midodrine (Proamatine) 10 mg PO Q8H JAMIE Last Admin: 08/25/18 17:15 Dose: 10 mg Morphine Sulfate (Morphine) 1 mg IVP Q4 PRN PRN Reason: Pain, severe (8-10) Last Admin: 08/25/18 06:48 Dose: 1 mg Thiamine HCl (Vitamin B1 Inj) 100 mg IV DAILY JAMIE Last Admin: 08/25/18 09:36 Dose: 100 mg - Labs Labs: - Additional Findings Additional findings: - Constitutional Appears: Chronically Ill and lethargic - Head Exam Head Exam: ATRAUMATIC - Respiratory Exam Respiratory Exam: NORMAL BREATHING PATTERN Additional comments: decreased breath sounds at right base no wheezing - Cardiovascular Exam Cardiovascular Exam: RRR, +S1, +S2 - GI/Abdominal Exam GI & Abdominal Exam: Distended Additional comments: hypoactive BS - Extremities Exam Additional comments: No edema b/l LE - Neurological Exam Additional comments: lethargic Laboratory Results - last 72 hr 08/23/18 08/24/18 08/24/18 00:04 10:38 10:38 WBC 13.4 H RBC 4.71 Hgb 13.7 Hct 40.6 MCV 86.3 MCH 29.0 MCHC 33.6 RDW 17.0 H Plt Count 93 L MPV Neut % (Auto) Lymph % (Auto) Ashley % (Auto) Eos % (Auto) Baso % (Auto) Neut # (Auto) Lymph # (Auto) Ashley # (Auto) Eos # (Auto) Baso # (Auto) pCO2 23 L pO2 89 HCO3 14.7 L ABG pH 7.30 L ABG Total CO2 12.0 L ABG O2 Saturation 99.3 H ABG O2 Content 18.0 ABG Base Excess -13.1 L ABG Hemoglobin 13.4 ABG Carboxyhemoglobin 2.5 H POC ABG HHb (Measured) 0.7 ABG Methemoglobin 1.7 ABG O2 Capacity 18.1 Pedro Test Yes A-a O2 Difference 110.0 Hgb O2 Saturation 95.1 FiO2 32.0 Sodium 151 H Potassium 3.9 Chloride 126 H Carbon Dioxide 14 L Anion Gap 15 BUN 65 H Creatinine 3.4 H Est GFR ( Amer) 22 Est GFR (Non-Af Amer) 18 Random Glucose 83 Calcium 8.7 Phosphorus Magnesium Total Bilirubin AST ALT Alkaline Phosphatase Total Creatine Kinase Total Protein Albumin Globulin Albumin/Globulin Ratio Ur Random Creatinine Ur Random Sodium 08/24/18 08/25/18 08/25/18 21:14 04:15 04:15 WBC 13.7 H RBC 4.13 L Hgb 11.9 L Hct 36.0 MCV 87.3 MCH 28.9 MCHC 33.1 RDW 17.5 H Plt Count 89 L MPV 11.1 Neut % (Auto) 83.3 H Lymph % (Auto) 9.3 L Ashley % (Auto) 5.5 Eos % (Auto) 1.2 Baso % (Auto) 0.7 Neut # (Auto) 11.4 H Lymph # (Auto) 1.3 Ashley # (Auto) 0.8 Eos # (Auto) 0.2 Baso # (Auto) 0.1 pCO2 pO2 HCO3 ABG pH ABG Total CO2 ABG O2 Saturation ABG O2 Content ABG Base Excess ABG Hemoglobin ABG Carboxyhemoglobin POC ABG HHb (Measured) ABG Methemoglobin ABG O2 Capacity Pedro Test A-a O2 Difference Hgb O2 Saturation FiO2 Sodium 151 H Potassium 3.4 L Chloride 126 H Carbon Dioxide 12 L Anion Gap 16 BUN 66 H Creatinine 3.9 H Est GFR ( Amer) 18 Est GFR (Non-Af Amer) 15 Random Glucose 90 Calcium 8.5 Phosphorus 6.1 H Magnesium 2.1 Total Bilirubin 2.2 H AST 53 ALT 25 Alkaline Phosphatase 147 H D Total Creatine Kinase < 20 L Total Protein 6.5 Albumin 2.6 L Globulin 3.9 Albumin/Globulin Ratio 0.7 L Ur Random Creatinine 257.2 Ur Random Sodium 46 Microbiology 08/19/18 11:40 Blood-Venous Blood Culture - Final NO GROWTH AFTER 5 DAYS 08/19/18 11:40 Blood-Venous Gram Stain - Final TEST NOT PERFORMED 08/19/18 11:40 Blood-Venous Blood Culture - Final NO GROWTH AFTER 5 DAYS 08/19/18 11:40 Blood-Venous Gram Stain - Final TEST NOT PERFORMED 08/16/18 19:58 Blood-Venous Blood Culture - Final NO GROWTH AFTER 5 DAYS 08/16/18 19:58 Blood-Venous Gram Stain - Final TEST NOT PERFORMED 08/16/18 19:02 Blood-Venous Blood Culture - Final NO GROWTH AFTER 5 DAYS 08/16/18 19:02 Blood-Venous Gram Stain - Final TEST NOT PERFORMED 08/18/18 17:20 Naris MRSA Culture (Admit) - Final MRSA NOT DETECTED 08/16/18 21:14 Urine,Clean Catch Urine Culture - Final No Growth (<1,000 CFU/ML) Assessment and Plan (1) Acute renal failure Status: Acute (2) Weakness Status: Acute (3) Hypothermia Status: Acute (4) Hypoventilation Status: Acute - Assessment and Plan (Free Text) Assessment: A/P- 73 year old male from [place] admitted with weakness, poor oral intake and found to be in Acute renal insufficiency and hypothermi hypotensive. much more lethargic Pt.has remained afebrile . minimal new leukocytosis thrombocytopenia CXR report - pulmonary vascular congestion and trace pleural effusion as per report. 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 tricuspid valve vegetation CT abd/pelvis- hepatic mass and ? 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 worsening renal function hypotensive and hypothermic plan- in light of this ? TR veg had started pt. on empiric IV vanco (renal dose) pending further results. in light of thrombocytopenia and increase in renal insufficiency had d/c vanco ( eventhough normal trough level). continue with IV daptomycin empirically for now pending cardiology input for second look at TTE. ( renal dose) doubt IE as pt. afebrile, and all blood cx negative. continue empiric IV zosyn as well since pt. was recently d/c from hospital and to cover for Hospital acquired pathogens. new Ct abd/ct results noted oncology note noted. patient prognosis poor . All above d/w LUCHO smith on tele floor.
--- NOTE | 2018-08-25 20:26 | CP.PCM.PN ---
Subjective - Date & Time of Evaluation Date of Evaluation: 08/24/18 Time of Evaluation: 21:00 - Subjective Subjective: Appears comfortable Made DNR/DNI Objective - Vital Signs/Intake and Output Vital Signs (last 24 hours): Temp Pulse Resp BP Pulse Ox 96.1 F L 70 16 79/49 L 99 08/25/18 16:20 08/25/18 20:00 08/25/18 20:00 08/25/18 20:00 08/25/18 20:00 Intake and Output: 08/25/18 08/26/18 18:59 06:59 Intake Total 1200 Output Total 100 Balance 1100 - Medications Medications: Current Medications Albumin Human (Albumin Human 25% (12.5 Gm/50 Ml)) 12.5 gm IV Q12H JAMIE Last Admin: 08/25/18 19:58 Dose: 12.5 gm Bacitracin (Bacitracin) 1 ea TOP BID JAMIE Last Admin: 08/25/18 17:15 Dose: 1 ea Heparin Sodium (Porcine) (Heparin) 5,000 units SC Q8 JAMIE; Protocol Last Admin: 08/23/18 10:45 Dose: Not Given Folic Acid 1 mg/ Sodium (Chloride) 100.2 mls @ 60 mls/hr IVPB DAILY JAMIE Last Admin: 08/25/18 12:14 Dose: 60 mls/hr Piperacillin Sod/Tazobactam (Sod 2.25 gm/ Dextrose) 100 mls @ 100 mls/hr IVPB Q8 JAMIE; Protocol Last Admin: 08/25/18 17:22 Dose: 100 mls/hr Daptomycin 500 mg/ Sodium (Chloride) 100 mls @ 100 mls/hr IV Q48H JAMIE; Protocol Stop: 08/29/18 14:16 Last Admin: 08/24/18 17:57 Dose: 100 mls/hr Sodium Bicarbonate 150 meq/ (Dextrose) 1,150 mls @ 100 mls/hr IV .[id number] JAMIE Stop: 08/26/18 07:52 Last Admin: 08/25/18 19:56 Dose: Not Given Midodrine (Proamatine) 10 mg PO Q8H JAMIE Last Admin: 08/25/18 17:15 Dose: 10 mg Morphine Sulfate (Morphine) 1 mg IVP Q4 PRN PRN Reason: Pain, severe (8-10) Last Admin: 08/25/18 18:54 Dose: 1 mg Thiamine HCl (Vitamin B1 Inj) 100 mg IV DAILY JAMIE Last Admin: 08/25/18 09:36 Dose: 100 mg - Labs Labs: 08/25/18 04:15 08/25/18 04:15 PT 12.7 Seconds (9.8-13.1) 08/16/18 18:57 INR 1.1 08/16/18 18:57 APTT 34.6 Seconds (25.6-37.1) 08/16/18 18:57 - Head Exam Head Exam: ATRAUMATIC - Eye Exam Eye Exam: Normal appearance - ENT Exam ENT Exam: Mucous Membranes Dry - Respiratory Exam Respiratory Exam: NORMAL BREATHING PATTERN - Cardiovascular Exam Cardiovascular Exam: +S1, +S2 - GI/Abdominal Exam GI & Abdominal Exam: Normal Bowel Sounds Assessment and Plan (1) Liver mass Assessment & Plan: 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
--- NOTE | 2018-08-25 20:27 | CP.PCM.PN ---
Subjective - Date & Time of Evaluation Date of Evaluation: 08/25/18 Time of Evaluation: 20:00 - Subjective Subjective: Appears comfortable. Objective - Vital Signs/Intake and Output Vital Signs (last 24 hours): Temp Pulse Resp BP Pulse Ox 96.1 F L 70 16 79/49 L 99 08/25/18 16:20 08/25/18 20:00 08/25/18 20:00 08/25/18 20:00 08/25/18 20:00 Intake and Output: 08/25/18 08/26/18 18:59 06:59 Intake Total 1200 Output Total 100 Balance 1100 - Medications Medications: Current Medications Albumin Human (Albumin Human 25% (12.5 Gm/50 Ml)) 12.5 gm IV Q12H JAMIE Last Admin: 08/25/18 19:58 Dose: 12.5 gm Bacitracin (Bacitracin) 1 ea TOP BID JAMIE Last Admin: 08/25/18 17:15 Dose: 1 ea Heparin Sodium (Porcine) (Heparin) 5,000 units SC Q8 JAMIE; Protocol Last Admin: 08/23/18 10:45 Dose: Not Given Folic Acid 1 mg/ Sodium (Chloride) 100.2 mls @ 60 mls/hr IVPB DAILY JAMIE Last Admin: 08/25/18 12:14 Dose: 60 mls/hr Piperacillin Sod/Tazobactam (Sod 2.25 gm/ Dextrose) 100 mls @ 100 mls/hr IVPB Q8 JAMIE; Protocol Last Admin: 08/25/18 17:22 Dose: 100 mls/hr Daptomycin 500 mg/ Sodium (Chloride) 100 mls @ 100 mls/hr IV Q48H JAMIE; Protocol Stop: 08/29/18 14:16 Last Admin: 08/24/18 17:57 Dose: 100 mls/hr Sodium Bicarbonate 150 meq/ (Dextrose) 1,150 mls @ 100 mls/hr IV .[id number] JAMIE Stop: 08/26/18 07:52 Last Admin: 08/25/18 19:56 Dose: Not Given Midodrine (Proamatine) 10 mg PO Q8H JAMIE Last Admin: 08/25/18 17:15 Dose: 10 mg Morphine Sulfate (Morphine) 1 mg IVP Q4 PRN PRN Reason: Pain, severe (8-10) Last Admin: 08/25/18 18:54 Dose: 1 mg Thiamine HCl (Vitamin B1 Inj) 100 mg IV DAILY JAMIE Last Admin: 08/25/18 09:36 Dose: 100 mg - Labs Labs: 08/25/18 04:15 08/25/18 04:15 PT 12.7 Seconds (9.8-13.1) 08/16/18 18:57 INR 1.1 08/16/18 18:57 APTT 34.6 Seconds (25.6-37.1) 08/16/18 18:57 - Head Exam Head Exam: ATRAUMATIC - Eye Exam Eye Exam: Normal appearance - ENT Exam ENT Exam: Mucous Membranes Dry - Respiratory Exam Respiratory Exam: NORMAL BREATHING PATTERN - Cardiovascular Exam Cardiovascular Exam: +S1, +S2 - GI/Abdominal Exam GI & Abdominal Exam: Normal Bowel Sounds Assessment and Plan (1) Liver mass Assessment & Plan: 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
[2018-08-26] MEDS: WATER IVPB SCH ×3 (00:38→16:19)
[2018-08-26] MEDS: DEXTROSE 5% IVPB SCH ×3 (00:38→16:19)
[2018-08-26] MEDS: PIPERACILLIN IVPB SCH ×3 (00:38→16:19)
[2018-08-26] MEDS: TAZOBACT IVPB SCH ×3 (00:38→16:19)
[2018-08-26] MEDS: Albumin Human 25% (12.5 gm/50 ml) IV SCH ×2 (06:17→17:46)
[2018-08-26] MEDS: Thiamine 100 mg/ml Inj IV SCH (09:45)
[2018-08-26] MEDS: Bacitracin 500 Units/gm Oint Foilpak UD TOP SCH ×2 (09:46→16:23)
[2018-08-26] MEDS: DAPTOmycin 500 MG in Sodium Chloride 0.9% 100 ML IV SCH (13:19)
[2018-08-26] MEDS: Sodium Bicarbonate 8.4% 150 MEQ in Dextrose 5% In Water 1,000 ML IV SCH ×3 (16:24→20:45)
[2018-08-26] MEDS ORDERED: Sodium Chloride 0.9% 1,000 ML IV SCH (20:45)
--- NOTE | 2018-08-26 23:46 | CP.PCM.PN ---
Subjective - Date & Time of Evaluation Date of Evaluation: 08/26/18 Time of Evaluation: 21:00 - Subjective Subjective: Patient overall continues to decline; less responsive, only moaning; Objective - Vital Signs/Intake and Output Vital Signs (last 24 hours): Temp Pulse Resp BP Pulse Ox 97.8 F 84 22 80/49 L 96 08/26/18 16:50 08/26/18 16:50 08/26/18 16:50 08/26/18 16:50 08/26/18 16:50 - Medications Medications: Current Medications Bacitracin (Bacitracin) 1 ea TOP BID JAMIE Last Admin: 08/26/18 16:23 Dose: 1 ea Heparin Sodium (Porcine) (Heparin) 5,000 units SC Q8 JAMIE; Protocol Last Admin: 08/23/18 10:45 Dose: Not Given Folic Acid 1 mg/ Sodium (Chloride) 100.2 mls @ 60 mls/hr IVPB DAILY JAMIE Last Admin: 08/26/18 09:48 Dose: 60 mls/hr Piperacillin Sod/Tazobactam (Sod 2.25 gm/ Dextrose) 100 mls @ 100 mls/hr IVPB Q8 JAMIE; Protocol Last Admin: 08/26/18 16:19 Dose: 100 mls/hr Daptomycin 500 mg/ Sodium (Chloride) 100 mls @ 100 mls/hr IV Q48H JAMIE; Protocol Stop: 08/29/18 14:16 Last Admin: 08/26/18 13:19 Dose: 100 mls/hr Sodium Bicarbonate 150 meq/ (Dextrose) 1,150 mls @ 100 mls/hr IV .[id number] JAMIE Stop: 08/27/18 13:21 Last Admin: 08/26/18 17:45 Dose: 100 mls/hr Sodium Chloride (Sodium Chloride 0.9%) 1,000 mls @ 500 mls/hr IV .Q2H JAMIE Stop: 08/27/18 21:45 Midodrine (Proamatine) 10 mg PO Q8H JAMIE Last Admin: 08/26/18 16:50 Dose: 10 mg Morphine Sulfate (Morphine) 1 mg IVP Q4 PRN PRN Reason: Pain, severe (8-10) Last Admin: 08/26/18 20:35 Dose: 1 mg Thiamine HCl (Vitamin B1 Inj) 100 mg IV DAILY JAMIE Last Admin: 08/26/18 09:45 Dose: 100 mg - Labs Labs: 08/25/18 04:15 08/25/18 04:15 PT 12.7 Seconds (9.8-13.1) 08/16/18 18:57 INR 1.1 08/16/18 18:57 APTT 34.6 Seconds (25.6-37.1) 08/16/18 18:57 - Respiratory Exam Additional comments: rales present; congested sounds; tachypneic - Cardiovascular Exam Additional comments: muffled heart sounds - GI/Abdominal Exam GI & Abdominal Exam: Distended, Soft - Extremities Exam Additional comments: becoming markedly edematous - Neurological Exam Neurological Exam: Alert, Awake - Skin Skin Exam: absent: Cyanosis - Additional Findings Additional findings: acutely ill; Assessment and Plan (1) ISAURO (acute kidney injury) Assessment & Plan: ATN, oligo-anuric renal failure in the setting of presumed advanced malignancy, hypotension, possible sepsis, and severe ascites; severe metabolic acidosis on yesterday's labs, started on bicarb drip; remains hypotensive; overall appears to be nearing his demise; HD would be futile; family to decide on hospice care soon; -continue bicarb drip -continue IV albumin 25% q12h -antibiotics per ID, dosed for CrCl < 10; Status: Acute (2) Ascites Status: Acute (3) Hypernatremia Status: Acute
[2018-08-27] MEDS: TAZOBACT IVPB SCH ×3 (00:26→17:33)
[2018-08-27] MEDS: WATER IVPB SCH ×3 (00:26→17:33)
[2018-08-27] MEDS: PIPERACILLIN IVPB SCH ×3 (00:26→17:33)
[2018-08-27] MEDS: DEXTROSE 5% IVPB SCH ×3 (00:26→17:33)
--- NOTE | 2018-08-27 00:50 | CP.PCM.PN ---
Subjective - Date & Time of Evaluation Date of Evaluation: 08/26/18 Time of Evaluation: 19:15 Objective - Vital Signs/Intake and Output Vital Signs (last 24 hours): Temp Pulse Resp BP Pulse Ox 97.5 F L 77 16 96/63 L 95 08/27/18 00:43 08/27/18 00:43 08/27/18 00:43 08/27/18 00:43 08/27/18 00:43 - Medications Medications: Current Medications Bacitracin (Bacitracin) 1 ea TOP BID JAMIE Last Admin: 08/26/18 16:23 Dose: 1 ea Heparin Sodium (Porcine) (Heparin) 5,000 units SC Q8 JAMIE; Protocol Last Admin: 08/23/18 10:45 Dose: Not Given Folic Acid 1 mg/ Sodium (Chloride) 100.2 mls @ 60 mls/hr IVPB DAILY JAMIE Last Admin: 08/26/18 09:48 Dose: 60 mls/hr Piperacillin Sod/Tazobactam (Sod 2.25 gm/ Dextrose) 100 mls @ 100 mls/hr IVPB Q8 JAMIE; Protocol Last Admin: 08/27/18 00:26 Dose: 100 mls/hr Daptomycin 500 mg/ Sodium (Chloride) 100 mls @ 100 mls/hr IV Q48H JAMIE; Protocol Stop: 08/29/18 14:16 Last Admin: 08/26/18 13:19 Dose: 100 mls/hr Sodium Bicarbonate 150 meq/ (Dextrose) 1,150 mls @ 100 mls/hr IV .[id number] JAMIE Stop: 08/27/18 13:21 Last Admin: 08/26/18 20:45 Dose: 100 mls/hr Sodium Chloride (Sodium Chloride 0.9%) 1,000 mls @ 500 mls/hr IV .Q2H JAMIE Stop: 08/27/18 21:45 Midodrine (Proamatine) 10 mg PO Q8H JAMIE Last Admin: 08/26/18 16:50 Dose: 10 mg Morphine Sulfate (Morphine) 1 mg IVP Q4 PRN PRN Reason: Pain, severe (8-10) Last Admin: 08/26/18 20:35 Dose: 1 mg Thiamine HCl (Vitamin B1 Inj) 100 mg IV DAILY JAMIE Last Admin: 08/26/18 09:45 Dose: 100 mg - Labs Labs: 08/25/18 04:15 08/25/18 04:15 PT 12.7 Seconds (9.8-13.1) 08/16/18 18:57 INR 1.1 08/16/18 18:57 APTT 34.6 Seconds (25.6-37.1) 08/16/18 18:57 Assessment and Plan (1) Acute renal failure Status: Acute (2) Altered mental state Status: Acute (3) Hypernatremia Status: Acute (4) Malignancy Status: Acute (5) Severe sepsis Status: Acute
--- NOTE | 2018-08-27 00:51 | CP.PCM.PN ---
Subjective - Date & Time of Evaluation Date of Evaluation: 08/26/18 Time of Evaluation: 07:30 Objective - Vital Signs/Intake and Output Vital Signs (last 24 hours): Temp Pulse Resp BP Pulse Ox 97.5 F L 77 16 96/63 L 95 08/27/18 00:43 08/27/18 00:43 08/27/18 00:43 08/27/18 00:43 08/27/18 00:43 - Medications Medications: Current Medications Bacitracin (Bacitracin) 1 ea TOP BID JAMIE Last Admin: 08/26/18 16:23 Dose: 1 ea Heparin Sodium (Porcine) (Heparin) 5,000 units SC Q8 JAMIE; Protocol Last Admin: 08/23/18 10:45 Dose: Not Given Folic Acid 1 mg/ Sodium (Chloride) 100.2 mls @ 60 mls/hr IVPB DAILY JAMIE Last Admin: 08/26/18 09:48 Dose: 60 mls/hr Piperacillin Sod/Tazobactam (Sod 2.25 gm/ Dextrose) 100 mls @ 100 mls/hr IVPB Q8 JAMIE; Protocol Last Admin: 08/27/18 00:26 Dose: 100 mls/hr Daptomycin 500 mg/ Sodium (Chloride) 100 mls @ 100 mls/hr IV Q48H JAMIE; Protocol Stop: 08/29/18 14:16 Last Admin: 08/26/18 13:19 Dose: 100 mls/hr Sodium Bicarbonate 150 meq/ (Dextrose) 1,150 mls @ 100 mls/hr IV .[id number] JAMIE Stop: 08/27/18 13:21 Last Admin: 08/26/18 20:45 Dose: 100 mls/hr Sodium Chloride (Sodium Chloride 0.9%) 1,000 mls @ 500 mls/hr IV .Q2H JAMIE Stop: 08/27/18 21:45 Midodrine (Proamatine) 10 mg PO Q8H JAMIE Last Admin: 08/26/18 16:50 Dose: 10 mg Morphine Sulfate (Morphine) 1 mg IVP Q4 PRN PRN Reason: Pain, severe (8-10) Last Admin: 08/26/18 20:35 Dose: 1 mg Thiamine HCl (Vitamin B1 Inj) 100 mg IV DAILY JAMIE Last Admin: 08/26/18 09:45 Dose: 100 mg - Labs Labs: 08/25/18 04:15 08/25/18 04:15 PT 12.7 Seconds (9.8-13.1) 08/16/18 18:57 INR 1.1 08/16/18 18:57 APTT 34.6 Seconds (25.6-37.1) 08/16/18 18:57 Assessment and Plan (1) Acute renal failure Status: Acute (2) Altered mental state Status: Acute (3) Hypernatremia Status: Acute (4) Malignancy Status: Acute (5) Severe sepsis Status: Acute
[2018-08-27] MEDS: Sodium Bicarbonate 8.4% 150 MEQ in Dextrose 5% In Water 1,000 ML IV SCH ×3 (02:21→12:43)
[2018-08-27 05:57] LABS: ALB/GLOB RATIO 0.8 (1.0-2.1); ALBUMIN 2.9 g/dL (3.5-5.0); CALCIUM 8.3 mg/dL (8.4-10.2)
[2018-08-27 06:01] LABS: HEMOGLOBIN 11.4 g/dL (12.0-18.0); MEAN CELL VOLUME 90.1 fl (80.0-94.0); MEAN CORPUSCULAR HEMOGLOBIN 30.4 pg (27.0-31.0); MEAN CORPUSCULAR HGB CONC 33.7 g/dL (33.0-37.0); RBC 3.75 Mil/uL (4.40-5.90); RED CELL DISTRIBUTION WIDTH 18.5 % (11.5-14.5)
[2018-08-27] MEDS: Bacitracin 500 Units/gm Oint Foilpak UD TOP SCH ×2 (09:06→16:40)
[2018-08-27] MEDS: Thiamine 100 mg/ml Inj IV SCH (09:15)
[2018-08-27] MEDS ORDERED: Hydrogen Peroxide 3% Soln (480ml) TP ONE (12:22)
--- NOTE | 2018-08-27 12:51 | CP.PCM.PCO ---
Assessment/Plan - Assessment/Plan Assessment (Free Text): Patient seen and examined awake but minimally responsive, poor appetite. Hypotensive, on ivf at this time. Plan discussed with AMPARO Robles, still indecisive about hospice. Discussed with Dr Kamara, will cont to monitor at this time. - Consults Consult Orders: Consultations 08/27/18 02:22 Wound Care [Nursing Referral for Wound Care] Routine Comment: Physician Instructions: Reason For Exam: Open red raised wound on the back - Problems Patient Problems: Problem List (Active/Current) Problem Status Onset Code Acute renal failure Acute N17.9 Acute renal failure Acute N17.9 Altered mental state Acute R41.82 Ascites Acute R18.8 Endocarditis Acute I38 Hypernatremia Acute E87.0 Hypothermia Acute T68.XXXA Hypoventilation Acute R06.89 Liver mass Acute R16.0 Malignancy Acute C80.1 Pneumonia Acute J18.9 Sepsis Acute A41.9 Severe sepsis Acute A41.9, R65.20 Thrombocytopenia Acute D69.6
--- NOTE | 2018-08-27 13:04 | CP.PCM.PN ---
Subjective - Date & Time of Evaluation Date of Evaluation: 08/27/18 Time of Evaluation: 13:02 - Subjective Subjective: GI progress note for Dr. Jose Guadalupe Montalvo, PGY-2 Pt S & E at bedside at 1240 Pt demented, unable to obtain ROS due to mental status. Per nursing- no acute changes in pt status, continues with hypotension, decreased renal function, thick secretions from lungs. Objective - Vital Signs/Intake and Output Vital Signs (last 24 hours): Temp Pulse Resp BP Pulse Ox 97.3 F L 81 20 100/61 94 L 08/27/18 12:58 08/27/18 12:58 08/27/18 12:58 08/27/18 12:58 08/27/18 12:58 - Medications Medications: Current Medications Bacitracin (Bacitracin) 1 ea TOP BID JAMIE Last Admin: 08/27/18 09:06 Dose: 1 ea Heparin Sodium (Porcine) (Heparin) 5,000 units SC Q8 JAMIE; Protocol Last Admin: 08/23/18 10:45 Dose: Not Given Folic Acid 1 mg/ Sodium (Chloride) 100.2 mls @ 60 mls/hr IVPB DAILY JAMIE Last Admin: 08/27/18 09:06 Dose: 60 mls/hr Piperacillin Sod/Tazobactam (Sod 2.25 gm/ Dextrose) 100 mls @ 100 mls/hr IVPB Q8 JAMIE; Protocol Last Admin: 08/27/18 12:45 Dose: 100 mls/hr Daptomycin 500 mg/ Sodium (Chloride) 100 mls @ 100 mls/hr IV Q48H JAMIE; Protocol Stop: 08/29/18 14:16 Last Admin: 08/26/18 13:19 Dose: 100 mls/hr Sodium Bicarbonate 150 meq/ (Dextrose) 1,150 mls @ 100 mls/hr IV .[id number] JAMIE Stop: 08/27/18 13:21 Last Admin: 08/27/18 12:43 Dose: Not Given Midodrine (Proamatine) 10 mg PO Q8H JAMIE Last Admin: 08/27/18 09:15 Dose: 10 mg Morphine Sulfate (Morphine) 1 mg IVP Q4 PRN PRN Reason: Pain, severe (8-10) Last Admin: 08/27/18 10:34 Dose: 1 mg Mupirocin (Bactroban Ointment) 1 applic TOP DAILY [facility] Thiamine HCl (Vitamin B1 Inj) 100 mg IV DAILY JAMIE Last Admin: 08/27/18 09:15 Dose: 100 mg - Labs Labs: 08/27/18 05:19 08/27/18 05:19 PT 12.7 Seconds (9.8-13.1) 08/16/18 18:57 INR 1.1 08/16/18 18:57 APTT 34.6 Seconds (25.6-37.1) 08/16/18 18:57 - Constitutional Appears: Chronically Ill - Head Exam Head Exam: ATRAUMATIC, NORMAL INSPECTION, NORMOCEPHALIC - Eye Exam Eye Exam: EOMI, Normal appearance - ENT Exam ENT Exam: Mucous Membranes Moist, Normal Exam - Respiratory Exam Respiratory Exam: Rales. absent: Clear to Ausculation Bilateral, Respiratory Distress - Cardiovascular Exam Cardiovascular Exam: REGULAR RHYTHM, +S1, +S2 - GI/Abdominal Exam GI & Abdominal Exam: Distended. absent: Soft, Tenderness Additional comments: anasarca - Extremities Exam Extremities Exam: Pedal Edema (bilateral, anasarca) - Neurological Exam Neurological Exam: Awake. 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 Dr Gina Montalvo, PGY-2
[2018-08-27] MEDS ORDERED: Chlorhexidine Gluconate 1 APPL/PKT TP ONE (14:24)
[2018-08-27] MEDS: Albumin Human 25% (12.5 gm/50 ml) IV SCH (16:30)
[2018-08-27] MEDS ORDERED: Sodium Bicarbonate 8.4% 150 MEQ in Dextrose 5% In Water 1,000 ML IV SCH (16:30)
[2018-08-27] MEDS: Mupirocin 2% Oint 1GM UD TOP SCH (16:40)
--- NOTE | 2018-08-27 23:13 | CP.PCM.PN ---
Subjective - Date & Time of Evaluation Date of Evaluation: 08/27/18 Time of Evaluation: 18:00 - Subjective Subjective: Not having PO meds anymore; Objective - Vital Signs/Intake and Output Vital Signs (last 24 hours): Temp Pulse Resp BP Pulse Ox 97.4 F L 80 22 82/52 L 99 08/27/18 19:55 08/27/18 21:00 08/27/18 19:55 08/27/18 19:55 08/27/18 19:55 Intake and Output: 08/27/18 08/28/18 18:59 06:59 Intake Total 1300 Output Total 700 Balance 600 - Medications Medications: Current Medications Albumin Human (Albumin Human 25% (12.5 Gm/50 Ml)) 12.5 gm IV Q12H JAMIE Last Admin: 08/27/18 16:30 Dose: 12.5 gm Bacitracin (Bacitracin) 1 ea TOP BID JAMIE Last Admin: 08/27/18 16:40 Dose: 1 ea Heparin Sodium (Porcine) (Heparin) 5,000 units SC Q8 JAMIE; Protocol Last Admin: 08/23/18 10:45 Dose: Not Given Folic Acid 1 mg/ Sodium (Chloride) 100.2 mls @ 60 mls/hr IVPB DAILY JAMIE Last Admin: 08/27/18 09:06 Dose: 60 mls/hr Piperacillin Sod/Tazobactam (Sod 2.25 gm/ Dextrose) 100 mls @ 100 mls/hr IVPB Q8 JAMIE; Protocol Last Admin: 08/27/18 17:33 Dose: 100 mls/hr Daptomycin 500 mg/ Sodium (Chloride) 100 mls @ 100 mls/hr IV Q48H JAMIE; Protocol Stop: 08/29/18 14:16 Last Admin: 08/26/18 13:19 Dose: 100 mls/hr Sodium Bicarbonate 150 meq/ (Dextrose) 1,150 mls @ 60 mls/hr IV .[id number] JAMIE Stop: 08/28/18 16:22 Midodrine (Proamatine) 10 mg PO Q8H JAMIE Last Admin: 08/27/18 16:40 Dose: Not Given Morphine Sulfate (Morphine) 1 mg IVP Q4 PRN PRN Reason: Pain, severe (8-10) Last Admin: 08/27/18 18:35 Dose: 1 mg Mupirocin (Bactroban Ointment) 1 applic TOP DAILY [facility] Last Admin: 08/27/18 16:40 Dose: 1 applic Thiamine HCl (Vitamin B1 Inj) 100 mg IV DAILY [facility] Last Admin: 08/27/18 09:15 Dose: 100 mg - Labs Labs: 08/27/18 05:19 08/27/18 05:19 PT 12.7 Seconds (9.8-13.1) 08/16/18 18:57 INR 1.1 08/16/18 18:57 APTT 34.6 Seconds (25.6-37.1) 08/16/18 18:57 - Respiratory Exam Respiratory Exam: Rales Additional comments: tachypneic - Cardiovascular Exam Additional comments: muffled heart sounds; - GI/Abdominal Exam GI & Abdominal Exam: Distended, Soft - Extremities Exam Additional comments: marked leg edema b/l; - Neurological Exam Neurological Exam: Awake - Skin Skin Exam: absent: Cyanosis Assessment and Plan (1) ISAURO (acute kidney injury) Assessment & Plan: ATN, oliguric renal failure with profound metabolic acidosis despite being on bicarb drip; demise appears imminent; agree with not escalating care; will continue with bicarb drip and IV albumin; Status: Acute (2) Ascites Status: Acute (3) Hypernatremia Status: Acute
[2018-08-28] MEDS: DEXTROSE 5% IVPB SCH ×3 (00:18→16:00)
[2018-08-28] MEDS: TAZOBACT IVPB SCH ×3 (00:18→16:00)
[2018-08-28] MEDS: WATER IVPB SCH ×3 (00:18→16:00)
[2018-08-28] MEDS: PIPERACILLIN IVPB SCH ×3 (00:18→16:00)
[2018-08-28] MEDS: Albumin Human 25% (12.5 gm/50 ml) IV SCH ×2 (04:40→15:36)
[2018-08-28] MEDS: Thiamine 100 mg/ml Inj IV SCH (08:26)
[2018-08-28] MEDS: Bacitracin 500 Units/gm Oint Foilpak UD TOP SCH ×2 (08:27→16:00)
[2018-08-28] MEDS: Mupirocin 2% Oint 1GM UD TOP SCH (10:42)
--- NOTE | 2018-08-28 10:54 | CP.PCM.PN ---
Subjective - Date & Time of Evaluation Date of Evaluation: 08/27/18 Time of Evaluation: 10:15 Objective - Vital Signs/Intake and Output Vital Signs (last 24 hours): Temp Pulse Resp BP Pulse Ox 97.0 F L 77 18 86/56 L 98 08/28/18 09:33 08/28/18 09:33 08/28/18 09:33 08/28/18 09:33 08/28/18 09:33 - Medications Medications: Current Medications Albumin Human (Albumin Human 25% (12.5 Gm/50 Ml)) 12.5 gm IV Q12H JAMIE Last Admin: 08/28/18 04:40 Dose: 12.5 gm Bacitracin (Bacitracin) 1 ea TOP BID JAMIE Last Admin: 08/28/18 08:27 Dose: 1 ea Heparin Sodium (Porcine) (Heparin) 5,000 units SC Q8 JAMIE; Protocol Last Admin: 08/23/18 10:45 Dose: Not Given Folic Acid 1 mg/ Sodium (Chloride) 100.2 mls @ 60 mls/hr IVPB DAILY JAMIE Last Admin: 08/28/18 08:25 Dose: 60 mls/hr Piperacillin Sod/Tazobactam (Sod 2.25 gm/ Dextrose) 100 mls @ 100 mls/hr IVPB Q8 JAMIE; Protocol Last Admin: 08/28/18 08:25 Dose: 100 mls/hr Daptomycin 500 mg/ Sodium (Chloride) 100 mls @ 100 mls/hr IV Q48H JAMIE; Protocol Stop: 08/29/18 14:16 Last Admin: 08/26/18 13:19 Dose: 100 mls/hr Sodium Bicarbonate 150 meq/ (Dextrose) 1,150 mls @ 60 mls/hr IV .[id number] JAMIE Stop: 08/28/18 16:22 Midodrine (Proamatine) 10 mg PO Q8H JAMIE Last Admin: 08/28/18 08:26 Dose: 10 mg Morphine Sulfate (Morphine) 1 mg IVP Q4 PRN PRN Reason: Pain, severe (8-10) Last Admin: 08/28/18 10:41 Dose: 1 mg Mupirocin (Bactroban Ointment) 1 applic TOP DAILY JAMIE Thiamine HCl (Vitamin B1 Inj) 100 mg IV DAILY JAMIE Last Admin: 08/28/18 08:26 Dose: 100 mg - Labs Labs: 10/11/18 05:19 08/27/18 05:19 PT 12.7 Seconds (9.8-13.1) 08/16/18 18:57 INR 1.1 08/16/18 18:57 APTT 34.6 Seconds (25.6-37.1) 08/16/18 18:57 Assessment and Plan (1) Acute renal failure Status: Acute (2) Altered mental state Status: Acute (3) Hypernatremia Status: Acute (4) Malignancy Status: Acute (5) Severe sepsis Status: Acute
[2018-08-28] MEDS: DAPTOmycin 500 MG in Sodium Chloride 0.9% 100 ML IV SCH (13:19)
[2018-08-28 16:23] VITALS: RESP 22
--- NOTE | 2018-08-28 17:57 | CP.PCM.PN ---
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' to pancreatic head ca Objective - Vital Signs/Intake and Output Vital Signs (last 24 hours): Temp Pulse Resp BP Pulse Ox 97.6 F 57 L 22 76/50 L 96 08/28/18 16:23 08/28/18 16:23 08/28/18 16:23 08/28/18 16:23 08/28/18 16:23 Intake and Output: 08/28/18 08/28/18 06:59 18:59 Intake Total 920 Output Total 0 Balance 920 - Medications Medications: Current Medications Albumin Human (Albumin Human 25% (12.5 Gm/50 Ml)) 12.5 gm IV Q12H [facility] Last Admin: 08/28/18 15:36 Dose: 12.5 gm Bacitracin (Bacitracin) 1 ea TOP BID JAMIE Last Admin: 08/28/18 16:00 Dose: 1 ea Heparin Sodium (Porcine) (Heparin) 5,000 units SC Q8 JAMIE; Protocol Last Admin: 08/23/18 10:45 Dose: Not Given Folic Acid 1 mg/ Sodium (Chloride) 100.2 mls @ 60 mls/hr IVPB DAILY JAMIE Last Admin: 08/28/18 08:25 Dose: 60 mls/hr Piperacillin Sod/Tazobactam (Sod 2.25 gm/ Dextrose) 100 mls @ 100 mls/hr IVPB Q8 JAMIE; Protocol Last Admin: 08/28/18 16:00 Dose: 100 mls/hr Daptomycin 500 mg/ Sodium (Chloride) 100 mls @ 100 mls/hr IV Q48H JAMIE; Protocol Stop: 08/29/18 14:16 Last Admin: 08/28/18 13:19 Dose: 100 mls/hr Midodrine (Proamatine) 10 mg PO Q8H JAMIE Last Admin: 08/28/18 15:36 Dose: Not Given Morphine Sulfate (Morphine) 1 mg IVP Q4 PRN PRN Reason: Pain, severe (8-10) Last Admin: 08/28/18 10:41 Dose: 1 mg Mupirocin (Bactroban Ointment) 1 applic TOP DAILY [facility] Thiamine HCl (Vitamin B1 Inj) 100 mg IV DAILY JAMIE Last Admin: 08/28/18 08:26 Dose: 100 mg - Labs Labs: 08/27/18 05:19 08/27/18 05:19 PT 12.7 Seconds (9.8-13.1) 08/16/18 18:57 INR 1.1 08/16/18 18:57 APTT 34.6 Seconds (25.6-37.1) 08/16/18 18:57 - Constitutional Appears: Toxic, Confused - Head Exam Head Exam: ATRAUMATIC, NORMAL INSPECTION, NORMOCEPHALIC - Eye Exam Eye Exam: EOMI, Normal appearance, PERRL Pupil Exam: NORMAL ACCOMODATION, PERRL - ENT Exam ENT Exam: Mucous Membranes Moist, Normal Exam - Neck Exam Neck Exam: Full ROM, Normal Inspection. absent: Lymphadenopathy - Respiratory Exam Respiratory Exam: Clear to Ausculation Bilateral, NORMAL BREATHING PATTERN - Cardiovascular Exam Cardiovascular Exam: REGULAR RHYTHM, +S1, +S2. absent: Murmur - GI/Abdominal Exam GI & Abdominal Exam: Soft, Normal Bowel Sounds. absent: Tenderness - Extremities Exam Extremities Exam: Full ROM, Normal Capillary Refill, Normal Inspection. absent: Joint Swelling, Pedal Edema - Back Exam Back Exam: NORMAL INSPECTION - Neurological Exam Neurological Exam: Altered - Psychiatric Exam Psychiatric exam: Normal Affect, Normal Mood - Skin Skin Exam: Dry, Intact, Normal Color, Warm Assessment and Plan (1) Endocarditis Assessment & Plan: Med rx as patient delerious 2' to metabolic encephalopathy no indication for MARION at this time Status: Acute (2) Acute renal failure Status: Acute (3) Hypoventilation Status: Acute (4) Altered mental status Status: Acute (5) ETOH abuse Status: Acute
--- NOTE | 2018-08-28 18:06 | CP.PCM.PN ---
Subjective - Date & Time of Evaluation Date of Evaluation: 08/25/18 Time of Evaluation: 11:00 - Subjective Subjective: pt made DNR by family metastatic pancreatic ca Objective - Vital Signs/Intake and Output Vital Signs (last 24 hours): Temp Pulse Resp BP Pulse Ox 97.6 F 57 L 22 76/50 L 96 08/28/18 16:23 08/28/18 16:23 08/28/18 16:23 08/28/18 16:23 08/28/18 16:23 Intake and Output: 08/28/18 08/28/18 06:59 18:59 Intake Total 920 Output Total 0 Balance 920 - Medications Medications: Current Medications Albumin Human (Albumin Human 25% (12.5 Gm/50 Ml)) 12.5 gm IV Q12H JAMIE Last Admin: 08/28/18 15:36 Dose: 12.5 gm Bacitracin (Bacitracin) 1 ea TOP BID JAMIE Last Admin: 08/28/18 16:00 Dose: 1 ea Heparin Sodium (Porcine) (Heparin) 5,000 units SC Q8 JAMIE; Protocol Last Admin: 08/23/18 10:45 Dose: Not Given Folic Acid 1 mg/ Sodium (Chloride) 100.2 mls @ 60 mls/hr IVPB DAILY JAMIE Last Admin: 08/28/18 08:25 Dose: 60 mls/hr Piperacillin Sod/Tazobactam (Sod 2.25 gm/ Dextrose) 100 mls @ 100 mls/hr IVPB Q8 JAMIE; Protocol Last Admin: 08/28/18 16:00 Dose: 100 mls/hr Daptomycin 500 mg/ Sodium (Chloride) 100 mls @ 100 mls/hr IV Q48H JAMIE; Protocol Stop: 08/29/18 14:16 Last Admin: 08/28/18 13:19 Dose: 100 mls/hr Midodrine (Proamatine) 10 mg PO Q8H JAMIE Last Admin: 08/28/18 15:36 Dose: Not Given Morphine Sulfate (Morphine) 1 mg IVP Q4 PRN PRN Reason: Pain, severe (8-10) Last Admin: 08/28/18 10:41 Dose: 1 mg Mupirocin (Bactroban Ointment) 1 applic TOP DAILY JAMIE Thiamine HCl (Vitamin B1 Inj) 100 mg IV DAILY JAMIE Last Admin: 08/28/18 08:26 Dose: 100 mg - Labs Labs: 08/27/18 05:19 08/27/18 05:19 PT 12.7 Seconds (9.8-13.1) 08/16/18 18:57 INR 1.1 08/16/18 18:57 APTT 34.6 Seconds (25.6-37.1) 08/16/18 18:57 - Constitutional Appears: Confused - Head Exam Head Exam: ATRAUMATIC, NORMAL INSPECTION, NORMOCEPHALIC - Eye Exam Eye Exam: EOMI, Normal appearance, PERRL Pupil Exam: NORMAL ACCOMODATION, PERRL - ENT Exam ENT Exam: Mucous Membranes Moist, Normal Exam - Neck Exam Neck Exam: Full ROM, Normal Inspection. absent: Lymphadenopathy - Respiratory Exam Respiratory Exam: Clear to Ausculation Bilateral, NORMAL BREATHING PATTERN - Cardiovascular Exam Cardiovascular Exam: REGULAR RHYTHM, +S1, +S2. absent: Murmur - GI/Abdominal Exam GI & Abdominal Exam: Soft, Normal Bowel Sounds. absent: Tenderness - Extremities Exam Extremities Exam: Full ROM, Normal Capillary Refill, Normal Inspection. absent: Joint Swelling, Pedal Edema - Back Exam Back Exam: NORMAL INSPECTION - Neurological Exam Neurological Exam: Altered - Psychiatric Exam Psychiatric exam: Normal Affect, Normal Mood - Skin Skin Exam: Dry, Intact, Normal Color, Warm Assessment and Plan (1) Endocarditis Assessment & Plan: hospice will sign off Status: Acute (2) Acute renal failure Status: Acute (3) Hypoventilation Status: Acute (4) Altered mental status Status: Acute (5) ETOH abuse Status: Acute
[2018-08-28 21:06] VITALS: BP 70/48; PULSE 65; TEMP 97.9; O2SAT 100
--- NOTE | 2018-08-29 16:28 | CP.PCM.DIS ---
Provider - Provider Date of Admission: 08/16/18 20:03 Attending physician: Parker Kamara MD Primary care physician: Parker Kamara MD Time Spent in preparation of Discharge (in minutes): 23 Diagnosis - Discharge Diagnosis (1) Acute renal failure Status: Acute Priority: High (2) Altered mental state Status: Acute Priority: High (3) Hypernatremia Status: Acute Priority: High (4) Malignancy Status: Acute (5) Severe sepsis Status: Acute Hospital Course - Lab Results Lab Results: Micro Results 08/19/18 11:40 Blood-Venous Blood Culture - Final NO GROWTH AFTER 5 DAYS 08/19/18 11:40 Blood-Venous Gram Stain - Final TEST NOT PERFORMED 08/19/18 11:40 Blood-Venous Blood Culture - Final NO GROWTH AFTER 5 DAYS 08/19/18 11:40 Blood-Venous Gram Stain - Final TEST NOT PERFORMED 08/16/18 19:58 Blood-Venous Blood Culture - Final NO GROWTH AFTER 5 DAYS 08/16/18 19:58 Blood-Venous Gram Stain - Final TEST NOT PERFORMED 08/16/18 19:02 Blood-Venous Blood Culture - Final NO GROWTH AFTER 5 DAYS 08/16/18 19:02 Blood-Venous Gram Stain - Final TEST NOT PERFORMED 08/18/18 17:20 Naris MRSA Culture (Admit) - Final MRSA NOT DETECTED 08/16/18 21:14 Urine,Clean Catch Urine Culture - Final No Growth (<1,000 CFU/ML) Most Recent Lab Values WBC 15.0 K/uL (4.8-10.8) H 08/27/18 05:19 RBC 3.75 Mil/uL (4.40-5.90) L 08/27/18 05:19 Hgb 11.4 g/dL (12.0-18.0) L 08/27/18 05:19 Hct 33.8 % (35.0-51.0) L 08/27/18 05:19 MCV 90.1 fl (80.0-94.0) D 08/27/18 05:19 MCH 30.4 pg (27.0-31.0) 08/27/18 05:19 MCHC 33.7 g/dL (33.0-37.0) 08/27/18 05:19 RDW 18.5 % (11.5-14.5) H 08/27/18 05:19 Plt Count 116 K/uL (130-400) L D 08/27/18 05:19 MPV 11.1 fl (7.2-11.7) 08/25/18 04:15 Neut % (Auto) 83.3 % (50.0-75.0) H 08/25/18 04:15 Lymph % (Auto) 9.3 % (20.0-40.0) L 08/25/18 04:15 Villalba % (Auto) 5.5 % (0.0-10.0) 08/25/18 04:15 Eos % (Auto) 1.2 % (0.0-4.0) 08/25/18 04:15 Baso % (Auto) 0.7 % (0.0-2.0) 08/25/18 04:15 Neut # (Auto) 11.4 K/uL (1.8-7.0) H 08/25/18 04:15 Lymph # (Auto) 1.3 K/uL (1.0-4.3) 08/25/18 04:15 Villalba # (Auto) 0.8 K/uL (0.0-0.8) 08/25/18 04:15 Eos # (Auto) 0.2 K/uL (0.0-0.7) 08/25/18 04:15 Baso # (Auto) 0.1 K/uL (0.0-0.2) 08/25/18 04:15 Neutrophils % (Manual) 80 % (42-75) H 08/22/18 16:06 Band Neutrophils % 1 % (0-2) 08/22/18 16:06 Lymphocytes % (Manual) 10 % (20-50) L 08/22/18 16:06 Monocytes % (Manual) 8 % (0-10) 08/22/18 16:06 Metamyelocytes % 1 % (0-0) H 08/22/18 16:06 Platelet Estimate Slightly decreased (NORMAL) L 08/22/18 16:06 PT 12.7 Seconds (9.8-13.1) 08/16/18 18:57 INR 1.1 08/16/18 18:57 APTT 34.6 Seconds (25.6-37.1) 08/16/18 18:57 pCO2 23 mm/Hg (35-45) L 08/23/18 00:04 pO2 89 mm/Hg (80-100) 08/23/18 00:04 HCO3 14.7 mmol/L (21-28) L 08/23/18 00:04 ABG pH 7.30 (7.35-7.45) L 08/23/18 00:04 ABG Total CO2 12.0 mmol/L (22-28) L 08/23/18 00:04 ABG O2 Saturation 99.3 % (95-98) H 08/23/18 00:04 ABG O2 Content 18.0 ML/dL (15-23) 08/23/18 00:04 ABG Base Excess -13.1 mmol/L (-2.0-3.0) L 08/23/18 00:04 ABG Hemoglobin 13.4 g/dL (11.7-17.4) 08/23/18 00:04 ABG Carboxyhemoglobin 2.5 % (0.5-1.5) H 08/23/18 00:04 POC ABG HHb (Measured) 0.7 % (0.0-5.0) 08/23/18 00:04 ABG Methemoglobin 1.7 % (0.0-3.0) 08/23/18 00:04 ABG O2 Capacity 18.1 mL/dL (16-24) 08/23/18 00:04 Pedro Test Yes 08/23/18 00:04 VBG pH 7.31 (7.32-7.43) L 08/16/18 20:54 VBG pCO2 29 mmHg (40-60) L 08/16/18 20:54 VBG HCO3 16.4 mmol/L 08/16/18 20:54 VBG Total CO2 15.5 mmol/L (22-28) L 08/16/18 20:54 VBG O2 Sat (Calc) 85.8 % (40-65) H 08/16/18 20:54 VBG Base Excess -10.2 mmol/L (0.0-2.0) L 08/16/18 20:54 VBG Potassium 5.1 mmol/L (3.6-5.2) 08/16/18 20:54 A-a O2 Difference 110.0 mm/Hg 08/23/18 00:04 Hgb O2 Saturation 95.1 % (95.0-98.0) 08/23/18 00:04 Sodium 154.0 mmol/L (132-148) H 08/16/18 20:54 Chloride 109.0 mmol/L (98-107) H 08/16/18 20:54 Glucose 57 mg/dL (75-110) L 08/16/18 20:54 Lactate 2.2 mmol/L (0.7-2.1) H 08/16/18 20:54 FiO2 32.0 % 08/23/18 00:04 Crit Value Called To jorgito Levine 08/16/18 20:54 Crit Value Called By Scarlett spaulding 08/16/18 20:54 Crit Value Read Back Y 08/16/18 20:54 Blood Gas Notified Time 210208/16/18 20:54 Sodium 148 mmol/l (132-148) 08/27/18 05:19 Potassium 3.7 MMOL/L (3.6-5.0) 08/27/18 05:19 Chloride 121 mmol/L (98-107) H 08/27/18 05:19 Carbon Dioxide 13 mmol/L (22-30) L 08/27/18 05:19 Anion Gap 18 (10-20) 08/27/18 05:19 BUN 70 mg/dl (9-20) H 08/27/18 05:19 Creatinine 5.4 mg/dl (0.8-1.5) H 08/27/18 05:19 Est GFR ( Amer) 13 08/27/18 05:19 Est GFR (Non-Af Amer) 10 08/27/18 05:19 POC Glucose (mg/dL) 141 mg/dL (65-110) H 08/17/18 09:09 Random Glucose 95 mg/dL (75-110) 08/27/18 05:19 Lactic Acid 1.3 MMOL/L (0.7-2.1) 08/22/18 16:06 Calcium 8.3 mg/dL (8.4-10.2) L 08/27/18 05:19 Phosphorus 6.1 mg/dl (2.5-4.5) H 08/25/18 04:15 Magnesium 2.0 MG/DL (1.6-2.3) 08/27/18 05:19 Total Bilirubin 3.1 mg/dl (0.2-1.3) H 08/27/18 05:19 AST 63 U/L (17-59) H 08/27/18 05:19 ALT 31 U/L (21-72) 08/27/18 05:19 Alkaline Phosphatase 124 U/L (38-126) 08/27/18 05:19 Ammonia 77 umo/L (16-60) H D 08/16/18 18:57 Total Creatine Kinase < 20 U/L (55-170) L 08/25/18 04:15 Troponin I 0.0400 ng/mL (0.00-0.120) 08/16/18 18:57 NT-Pro-B Natriuret Pep 1320 pg/ml (0-900) H 08/16/18 19:59 Total Protein 6.7 G/DL (6.3-8.2) 08/27/18 05:19 Albumin 2.9 g/dL (3.5-5.0) L 08/27/18 05:19 Globulin 3.8 gm/dL (2.2-3.9) 08/27/18 05:19 Albumin/Globulin Ratio 0.8 (1.0-2.1) L 08/27/18 05:19 Alpha Fetoprotein 63.8 IU/mL (0.0-7.22) H 08/19/18 12:52 Carcinoembryonic Ag 4.2 ng/mL (0-3.0) H 08/19/18 12:52 CA 19-9 Antigen 1120 U/mL (0-37) H 08/19/18 13:34 Free PSA 2.0 ng/mL 08/19/18 12:52 % Free PSA 29 % (calc) (>25) 08/19/18 12:52 Total PSA 6.9 ng/mL (< or = 4.0) H 08/19/18 12:52 Free T4 1.49 ng/dL (0.78-2.19) 08/17/18 14:37 Free T3 pg/mL 2.15 pg/mL (2.77-5.27) L 08/17/18 14:32 TSH 3rd Generation 6.76 mIU/ML (0.46-4.68) H 08/17/18 05:35 Venous Blood Potassium 5.1 mmol/L (3.6-5.2) 08/16/18 20:54 Urine Color Vilma (YELLOW) 08/16/18 21:14 Urine Clarity Cloudy (Clear) 08/16/18 21:14 Urine pH 5.0 (5.0-8.0) 08/16/18 21:14 Ur Specific [place] 1.020 (1.003-1.030) 08/16/18 21:14 Urine Protein Negative mg/dL (NEGATIVE) 08/16/18 21:14 Urine Glucose (UA) Neg mg/dL (Normal) 08/16/18 21:14 Urine Ketones Negative mg/dL (NEGATIVE) 08/16/18 21:14 Urine Blood Large (NEGATIVE) 08/16/18 21:14 Urine Nitrate Negative (NEGATIVE) 08/16/18 21:14 Urine Bilirubin Negative (NEGATIVE) 08/16/18 21:14 Urine Urobilinogen 4.0 mg/dL (0.2-1.0) 08/16/18 21:14 Ur Leukocyte Esterase Small Trisha/uL (Negative) 08/16/18 21:14 Urine RBC (Auto) 115 /hpf (0-3) H 08/16/18 21:14 Urine Microscopic WBC 33 /hpf (0-5) H 08/16/18 21:14 Ur Squamous Epith Cells 5 /hpf (0-5) 08/16/18 21:14 Urine Bacteria Occ (<OCC) H 08/16/18 21:14 Hyaline Casts 6-10 /hpf (0-2) H 08/16/18 21:14 Ur Random Creatinine 257.2 mg/dL 08/24/18 21:14 Ur Random Sodium 46 mmol/L 08/24/18 21:14 Vancomycin Trough 7.7 ug/mL (5.0-10.0) 08/22/18 05:55 Ur L.pneumophila Ag Negative (NEGATIVE) 08/18/18 08:07 Mycoplasma pneumon IgG 1.05 (<=0.90) H 08/17/18 14:37 Mycoplasma pneumon IgM 447 U/mL (<770) 08/17/18 14:37 Discharge Exam - Head Exam Head Exam: ATRAUMATIC, NORMAL INSPECTION, NORMOCEPHALIC Discharge Plan - Follow Up Plan Condition: STABLE Disposition: WITH WITHOUT AUTOPSY Referrals: Parker Kamara MD [Primary Care Provider] -
--- NOTE | 2018-08-29 22:14 | CP.PCM.PN ---
Subjective - Date & Time of Evaluation Date of Evaluation: 08/26/18 Time of Evaluation: 13:00 - Subjective Subjective: Appears more fatigued. Objective - Vital Signs/Intake and Output Vital Signs (last 24 hours): Temp Pulse Resp BP Pulse Ox 97.9 F 65 22 70/48 L 100 08/28/18 21:06 08/28/18 21:06 08/28/18 21:06 08/28/18 21:06 08/28/18 21:06 - Labs Labs: 08/27/18 05:19 08/27/18 05:19 PT 12.7 Seconds (9.8-13.1) 08/16/18 18:57 INR 1.1 08/16/18 18:57 APTT 34.6 Seconds (25.6-37.1) 08/16/18 18:57 - Head Exam Head Exam: ATRAUMATIC - Eye Exam Eye Exam: Normal appearance - ENT Exam ENT Exam: Mucous Membranes Dry - Respiratory Exam Respiratory Exam: Decreased Breath Sounds - Cardiovascular Exam Cardiovascular Exam: +S1, +S2 - GI/Abdominal Exam GI & Abdominal Exam: Normal Bowel Sounds Assessment and Plan (1) Liver mass Assessment & Plan: 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
--- NOTE | 2018-08-29 22:16 | CP.PCM.PN ---
Subjective - Date & Time of Evaluation Date of Evaluation: 08/27/18 Time of Evaluation: 12:00 - Subjective Subjective: More fatigued Objective - Vital Signs/Intake and Output Vital Signs (last 24 hours): Temp Pulse Resp BP Pulse Ox 97.9 F 65 22 70/48 L 100 08/28/18 21:06 08/28/18 21:06 08/28/18 21:06 08/28/18 21:06 08/28/18 21:06 - Labs Labs: 08/27/18 05:19 08/27/18 05:19 PT 12.7 Seconds (9.8-13.1) 08/16/18 18:57 INR 1.1 08/16/18 18:57 APTT 34.6 Seconds (25.6-37.1) 08/16/18 18:57 - Head Exam Head Exam: ATRAUMATIC - Eye Exam Eye Exam: Normal appearance - ENT Exam ENT Exam: Mucous Membranes Dry - Respiratory Exam Respiratory Exam: Decreased Breath Sounds - Cardiovascular Exam Cardiovascular Exam: +S1, +S2 - GI/Abdominal Exam GI & Abdominal Exam: Normal Bowel Sounds Assessment and Plan (1) Liver mass Assessment & Plan: 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
== END 2018-08-29 00:46 | DRG 871 ==
LOC: H.ER 17:08 → SUPCPDRO 17:08 → H.ERHOLD 20:03 → H.ICU/CCU 08-17 04:10 → H.ERHOLD 08-17 04:26 → H.TEL 08-17 11:52
PROVIDERS: ADMIT Internal Medicine; ATTEND Internal Medicine
PROC: 3E02340 Introduction of Influenza Vaccine into Muscle, Percutaneous Approach (ICD-10-PCS; 2018-08-18)
PROC: 0HBRXZZ Excision of Toe Nail, External Approach (ICD-10-PCS; principal; 2018-08-20)
DX: A41.9 Sepsis, unspecified organism (principal); G93.41 Metabolic encephalopathy; I33.0 Acute and subacute infective endocarditis; N17.0 Acute kidney failure with tubular necrosis; C25.0 Malignant neoplasm of head of pancreas; C78.7 Secondary malignant neoplasm of liver and intrahepatic bile duct; E87.0 Hyperosmolality and hypernatremia; E87.1 Hypo-osmolality and hyponatremia; E87.2 Acidosis; J98.11 Atelectasis; R18.0 Malignant ascites; D69.6 Thrombocytopenia, unspecified; E86.0 Dehydration; E86.1 Hypovolemia; E88.09 Other disorders of plasma-protein metabolism, not elsewhere classified; F03.90 Unspecified dementia, unspecified severity, without behavioral disturbance, psychotic disturbance, mood disturbance, and anxiety; F10.10 Alcohol abuse, uncomplicated; R65.20 Severe sepsis without septic shock; Z51.5 Encounter for palliative care; Z66 Do not resuscitate; I95.9 Hypotension, unspecified; R16.0 Hepatomegaly, not elsewhere classified; B35.1 Tinea unguium; L60.2 Onychogryphosis; Z23 Encounter for immunization